=== PATIENT | male | born 1960 | race Caucasian/White ===

== ENCOUNTER → 2016-09-26 | Outpatient (CLI) | payer MEDICARE, OTHER ==
[2016-09-26 09:52] LABS: Carbamazepine (Tegretol) 6.5 ug/mL
== END | disposition home or self-care (01) ==
LOC: LABWHC1 08:34
PROVIDERS: ATTEND Psychiatry & Neurology Neurology
DX: G40.909 Epilepsy, unspecified, not intractable, without status epilepticus (principal)
CPT/HCPCS: 36415; 80156; 80185

== ENCOUNTER 2018-03-27 12:45 | Emergency (ER) | payer MEDICARE, OTHER ==
[2018-03-27] MEDS ORDERED: DIPH,PERTUS(ACELL)TETVAC-LF 0.5 ML VIAL IM ONE (12:46)
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
[2018-03-27 13:18] LABS: Basophils # (A) 0.1 k/uL (0-0.2); Basophils % (A) 1 %; Eosinophils # (A) 0.1 k/uL (0-0.7); Eosinophils % (A) 1 %; HCT 44.6 % (39.0-53.0); HGB 14.6 gm/dL (13.0-17.5); Lymphocytes # (A) 3.5 k/uL (1.0-4.8); Lymphocytes % (A) 22 %; MCH 31.6 pg (25.0-35.0); MCHC 32.9 g/dL (31.0-37.0); MCV 96.3 fL (80.0-100.0); Mean Platelet Volume 6.8; Monocytes # (A) 0.7 k/uL (0-1.0); Monocytes % (A) 4 %; Neutrophils # (A) 11.6 k/uL (1.3-7.7); Neutrophils % (A) 72 %; Platelet Count 365 k/uL (150-450); RBC 4.63 m/uL (4.30-5.90); RDW 13.7 % (11.5-15.5); WBC 16.1 k/uL (3.8-10.6)
[2018-03-27 13:29] LABS: ALT 233 U/L (21-72); AST 439 U/L (17-59); Albumin 4.2 g/dL (3.5-5.0); Alcohol 66 mg/dL; Alkaline Phosphatase 61 U/L (38-126); Anion Gap 25 mmol/L; Blood Urea Nitrogen 11 mg/dL (9-20); Calcium 9.2 mg/dL (8.4-10.2); Carbon Dioxide 15 mmol/L (22-30); Chloride 99 mmol/L (98-107); Glucose 298 mg/dL (74-99); Sodium 139 mmol/L (137-145); Total Bilirubin 0.5 mg/dL (0.2-1.3); Total Protein 6.9 g/dL (6.3-8.2)
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
--- NOTE | 2018-03-27 13:33 | XR ---
EXAMINATION TYPE: XR pelvis AP view DATE OF EXAM: 03/27/2018 CLINICAL HISTORY: pain TECHNIQUE: Single view the pelvis is submitted. Examination is limited by patient body habitus. FINDINGS: No evidence for fracture, dislocation or bony lesion. Joint spaces are well-preserved. S I joints appear symmetric. IMPRESSION: 1. No acute fracture or dislocation seen. ICD 10 NO FRACTURE, INITIAL EVALUATION
[2018-03-27 13:40] LABS: Potassium 3.8 mmol/L (3.5-5.1)
[2018-03-27 13:45] LABS: Prothrombin Time 9.9 sec (9.0-12.0)
[2018-03-27 13:49] LABS: Partial Thromboplastin Time 19.1 sec (22.0-30.0)
[2018-03-27 13:51] LABS: Creatine Kinase 227 U/L (55-170)
[2018-03-27 14:04] LABS: Creatine Kinase MB 3.9 ng/mL (0.0-2.4); Troponin I <0.012 ng/mL (0.000-0.034)
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
[2018-03-27] MEDS ORDERED: SODIUM CHLORIDE 0.9% 500 ML 500 ML IV ONE ×2 (14:08→14:38)
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
[2018-03-27] MEDS ORDERED: ALBUTEROL NEBULIZED 2.5 MG/3 ML INHALATION STA (14:38)
[2018-03-27 14:39] LABS: Appearance,Urine Clear (Clear); Bilirubin,Urine Negative (Negative); Blood,Urine Large (Negative); Color,Urine Yellow; Glucose,Urine (UA) 4+ (Negative); Ketones,Urine Negative (Negative); Leukocyte Esterase,Urine Negative (Negative); Mucus,Urine Rare /hpf; Nitrite,Urine Negative (Negative); Protein,Urine 1+ (Negative); RBC,Urine 159 /hpf (0-5); Specific Gravity,Urine 1.035 (1.001-1.035); Urobilinogen,Urine <2.0 mg/dL (<2.0); WBC,Urine 40 /hpf (0-5)
[2018-03-27 14:44] LABS: Amphetamine Screen,Urine Not Detected (NotDetected); Barbiturate Screen,Urine Detected (NotDetected); Benzodiazepines Screen,Urine Not Detected (NotDetected); Cocaine Screen,Urine Not Detected (NotDetected); Methadone Screen, Urine Not Detected (NotDetected); Opiate Screen,Urine Not Detected (NotDetected); Oxycodone Screen, Urine Not Detected (NotDetected); Phencyclidine Screen,Urine Not Detected (NotDetected); Tricyclic Antidepressant,Urine Not Detected (NotDetected); Urn Cannabinoid Scrn Not Detected (NotDetected)
[2018-03-27] MEDS ORDERED: fentaNYL (PF) 50 MCG/ML 2 ML AMP IVP STA ×3 (14:52→16:30)
[2018-03-27] MEDS ORDERED: SODIUM CHLORIDE 0.9% 1,000 ML IV SCH (15:00)
[2018-03-27] MEDS ORDERED: fentaNYL (PF) 50 MCG/ML 2 ML AMP IV STA (15:58)
[2018-03-27] MEDS ORDERED: NALOXONE 0.4 MG/ML 1 ML VIAL IV PRN (16:27)
[2018-03-27 16:34] VITALS: BP 122/95; PULSE 126; RESP 31
[2018-03-27 16:40] VITALS: TEMP 98
[2018-03-27] MEDS ORDERED: ETOMIDATE 2 MG/ML 10 ML VIAL ONE (16:44)
[2018-03-27] MEDS ORDERED: SUCCINYLCHOLINE CHLORIDE 100 MG/5 ML SYR IV ONE (16:44)
[2018-03-27] MEDS ORDERED: HEPARIN SODIUM,PORCINE 10,000 UNIT/ML 1 ML VIAL ONE (16:44)
[2018-03-27] MEDS ORDERED: ROCURONIUM BROMIDE 10 MG/ML 10 ML VIAL IV ONE (16:44)
[2018-03-27] MEDS ORDERED: fentaNYL (PF) 50 MCG/ML 2 ML AMP ONE (16:44)
[2018-03-27] MEDS ORDERED: SODIUM CHLORIDE 0.9% IRRIG 1,000 ML BTL IRRIGATION ONE (16:44)
[2018-03-27] MEDS ORDERED: LACTATED RINGERS 1,000 ML IV ONE (16:44)
[2018-03-27 17:33] LABS: ABG Base Excess -5.8 mmol/L; ABG HCO3 23 mmol/L (21-25); ABG Oxygen Saturation 98.6 % (94-97); ABG PCO2 59 mmHg (35-45); ABG PO2 147 mmHg (83-108); ABG Potassium Whole Blood 3.7 mmol/L (3.4-4.5); ABG Sodium Whole Blood 142 mmol/L (135-146); ABG TCO2 25 mmol/L (19-24)
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
--- NOTE | 2018-03-29 10:03 | XR ---
EXAMINATION TYPE: XR chest 1V portable DATE OF EXAM: 03/27/2018 HISTORY: Shortness of breath. COMPARISON: 03/27/2018 TECHNIQUE: Single view of the chest is submitted. FINDINGS: Demonstrated are scattered senescent parenchymal change. Patchy density right medial lung base may reflect developing infiltrate. Correlate clinically. Right IJ central venous line with distal tip overlying the SVC. The heart is stable. Hilar and mediastinal structures are within normal limits. Degenerative changes are seen of the dorsal spine. IMPRESSION: 1. Patchy density right medial lung base may reflect developing infiltrate. Correlate clinically.
[2018-03-29 15:58] LABS: Glucose,Whole Blood 240 mg/dL (75-99)
== END 2018-03-27 16:45 | disposition short-term general hospital (02) ==
LOC: EC 12:45 → UNDOADMIN 16:27 → 2SICU 16:27
DX: S36.893A Laceration of other intra-abdominal organs, initial encounter (principal); S36.039A Unspecified laceration of spleen, initial encounter; S36.113A Laceration of liver, unspecified degree, initial encounter; T79.4XXA Traumatic shock, initial encounter; Z23 Encounter for immunization; E11.9 Type 2 diabetes mellitus without complications; I10 Essential (primary) hypertension; E78.5 Hyperlipidemia, unspecified; G40.909 Epilepsy, unspecified, not intractable, without status epilepticus; Z79.82 Long term (current) use of aspirin; Z79.899 Other long term (current) drug therapy; Z87.891 Personal history of nicotine dependence; Z86.718 Personal history of other venous thrombosis and embolism; V47.5XXA Car driver injured in collision with fixed or stationary object in traffic accident, initial encounter; W22.11XA Striking against or struck by driver side automobile airbag, initial encounter; Y92.410 Unspecified street and highway as the place of occurrence of the external cause
CPT/HCPCS: 96376 ×3; 90471 ×2; 96361 ×2; 96374 ×2; 99291 ×2; 99292 ×2; 51702 ×2; 36556 ×2; 47360; 36415; 94640; 93005; 86891; 36430; 86900; 86901; 86902; 80053; 82550; 82553; 82805; 84484; 85025; 85610; 85730; 86850; 86920; 86870; 86880; 81001; 80306; 72170; 71045; 72125; 70450; 71260; 74177; 90715; L0120; P9016; P9035; P9059; G0480; J1644; J3010; J0330; Q9967; 80320

== ENCOUNTER → 2018-07-15 | Outpatient (CLI) | payer MEDICARE, OTHER ==
--- NOTE | 2018-07-15 10:12 | XR ---
EXAMINATION TYPE: XR chest 2V DATE OF EXAM: 07/15/2018 COMPARISON: 03/27/2018 TECHNIQUE: PA and lateral views submitted. HISTORY: Pleural effusion FINDINGS: The lungs are clear and there is no pneumothorax, pleural effusion, or focal pneumonia. Hypertrophic change of the spine. Hyperinflation. Arthropathy of the shoulders. IMPRESSION: 1. No acute process.
== END | disposition home or self-care (01) ==
LOC: LABWHC1 09:05
PROVIDERS: ATTEND Psychiatry & Neurology Neurology
DX: G40.909 Epilepsy, unspecified, not intractable, without status epilepticus (principal); J90 Pleural effusion, not elsewhere classified
CPT/HCPCS: 36415; 71046; 80156

== ENCOUNTER → 2018-07-22 | Outpatient (CLI) | payer MEDICARE, OTHER ==
[2018-07-22 10:31] LABS: HCT 44.3 % (39.0-53.0); HGB 15.2 gm/dL (13.0-17.5); MCH 29.8 pg (25.0-35.0); MCHC 34.3 g/dL (31.0-37.0); MCV 86.9 fL (80.0-100.0); Mean Platelet Volume 6.1; Platelet Count 315 k/uL (150-450); RDW 15.5 % (11.5-15.5); WBC 11.3 k/uL (3.8-10.6)
[2018-07-22 17:44] LABS: Anion Gap 9.3 mmol/L (4.00-12.00); Calcium 9.4 mg/dL (8.7-10.3); Carbon Dioxide 22.7 mmol/L (21.6-31.8); Potassium 5.5 mmol/L (3.5-5.5)
== END | disposition home or self-care (01) ==
LOC: LABWHC1 09:31
PROVIDERS: ATTEND Internal Medicine Interventional Cardiology
DX: I10 Essential (primary) hypertension (principal)
CPT/HCPCS: 36415; 80048; 85027

== ENCOUNTER → 2018-10-16 | Outpatient (CLI) | payer MEDICARE, OTHER | END | disposition home or self-care (01) | LOC: LABWHC1 10:33 | PROVIDERS: ATTEND Psychiatry & Neurology Neurology | DX: G40.909 Epilepsy, unspecified, not intractable, without status epilepticus (principal) | CPT/HCPCS: 36415; 80156 ==

== ENCOUNTER → 2018-12-29 | Outpatient (CLI) | payer MEDICARE, OTHER ==
[2018-12-29 16:26] LABS: African American GFR (CKD) 129.4 (60.0-200.0); Anion Gap 8.1 mmol/L (4.00-12.00); Calcium 9.2 mg/dL (8.7-10.3); Carbon Dioxide 26.9 mmol/L (21.6-31.8); Magnesium 1.9 mg/dL (1.5-2.4); Non-African American GFR(CKD) 111.6 (60.0-200.0)
== END | disposition home or self-care (01) ==
LOC: LABWHC1 09:25
PROVIDERS: ATTEND Nurse Practitioner
DX: I10 Essential (primary) hypertension (principal)
CPT/HCPCS: 36415; 80048; 83735; 83880

== ENCOUNTER → 2020-04-10 | Outpatient (CLI) | payer MEDICARE, OTHER | END | disposition home or self-care (01) | LOC: LABWHC1 09:33 | PROVIDERS: ATTEND Psychiatry & Neurology Neurology | DX: G44.321 Chronic post-traumatic headache, intractable (principal); G40.009 Localization-related (focal) (partial) idiopathic epilepsy and epileptic syndromes with seizures of localized onset, not intractable, without status epilepticus | CPT/HCPCS: 36415; 80156 ==

== ENCOUNTER 2021-01-27 23:22 | Inpatient (IN) | payer MEDICARE, OTHER ==
[2021-01-27] MEDS ORDERED: SODIUM CHLORIDE 0.9% 1,000 ML IV STA ×2 (23:24)
[2021-01-27] MEDS ORDERED: MORPHINE SULFATE 4 MG/ML SYRINGE IVP STA (23:25)
[2021-01-27] MEDS ORDERED: LABETALOL 5 MG/ML VIAL MDV IVP STA (23:25)
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
[2021-01-27 23:41] LABS: Basophils % (A) 0 %; Eosinophils # (A) 0.1 k/uL (0-0.7); Eosinophils % (A) 1 %; HCT 41.1 % (39.0-53.0); HGB 14.5 gm/dL (13.0-17.5); Lymphocytes # (A) 1.5 k/uL (1.0-4.8); Lymphocytes % (A) 12 %; MCH 33.8 pg (25.0-35.0); MCHC 35.4 g/dL (31.0-37.0); MCV 95.7 fL (80.0-100.0); Mean Platelet Volume 6.8; Monocytes # (A) 0.6 k/uL (0-1.0); Monocytes % (A) 5 %; Neutrophils % (A) 81 %; Platelet Count 254 k/uL (150-450); RBC 4.29 m/uL (4.30-5.90); RDW 13.3 % (11.5-15.5); WBC 12.4 k/uL (3.8-10.6)
[2021-01-27 23:59] LABS: ALT 19 U/L (4-49); AST 24 U/L (17-59); African American GFR (CKD) >90 (>60 ml/min/1.73 sqM); Alkaline Phosphatase 68 U/L (38-126); Anion Gap 10 mmol/L; Blood Urea Nitrogen 14 mg/dL (9-20); Calcium 9.5 mg/dL (8.4-10.2); Carbon Dioxide 22 mmol/L (22-30); Chloride 102 mmol/L (98-107); Creatine Kinase 75 U/L (55-170); Glucose 153 mg/dL (74-99); Lipase 30 U/L (23-300); Magnesium 1.5 mg/dL (1.6-2.3); Non-African American GFR(CKD) >90 (>60 ml/min/1.73 sqM); Potassium 3.8 mmol/L (3.5-5.1); Sodium 134 mmol/L (137-145); Total Bilirubin 0.4 mg/dL (0.2-1.3); Total Protein 6.9 g/dL (6.3-8.2)
[2021-01-28 00:02] LABS: INR 0.9 (<1.2); Partial Thromboplastin Time 21.3 sec (22.0-30.0); Prothrombin Time 10.1 sec (9.0-12.0)
--- NOTE | 2021-01-28 00:41 | CT ---
EXAMINATION TYPE: CT abdomen pelvis w con DATE OF EXAM: 01/28/2021 COMPARISON: 03/27/2018 HISTORY: Upper Abd Pain CT DLP: 2819.80 mGycm Automated exposure control for dose reduction was used. CONTRAST: Performed with IV Contrast, patient injected with 100 mL of Isovue 370. Lung bases are clear of infiltrate. There is no pleural effusion. There is no pericardial effusion. H eart size is normal. Liver spleen stomach pancreas gallbladder appear intact. The bile ducts are not dilated. Gallbladder is borderline dilated and measures 4.6 cm in diameter. There is 1.5 cm low-density bilateral adrenal masses consistent with benign disease. Kidneys show satisfactory contrast opacification. There is no hydronephrosis. There is 5 mm calculus in the left kidney. There are small calcifications in the righ t kidney that could be vascular. There is no hydronephrosis. Ureters are not dilated. Delayed images show normal renal excretion. There is no retroperitoneal adenopathy. Bladder distends smoothly. There is no inguinal hernia. There are sigmoid diverticula. There is no diverticulitis. There is large ant erior abdominal wall ventral hernia that contains some incarcerated transverse colon. I see no bowel obstruction. There is some surgical clips in the anterior abdomen. There is apparent previous anterio r abdominal wall surgery. There is no mesenteric edema. There is no ascites or free air. There is no bowel obstruction. Appendi x appears normal. Lumbar vertebra have normal alignment. Posterior elements are intact. There is no compression fractur e. The bony pelvis is intact. Hip joints are intact. IMPRESSION: Incarcerated ventral hernia containing transverse colon. No bowel obstruction. Hernia appears new com pared to old exam. There is clearing of the retroperitoneal fluid and fat stranding compared to old e xam. Low density adrenal masses unchanged. Sigmoid diverticulosis unchanged.
--- NOTE | 2021-01-28 00:52 | CT ---
EXAMINATION TYPE: CT angio chest DATE OF EXAM: 01/28/2021 COMPARISON: None HISTORY: R/O PE, LOWER CHEST PAIN CT DLP: 2819.80 mGycm Automated exposure control for dose reduction was used. CONTRAST: Performed with IV Contrast, patient injected with 100 mL of Isovue 370. There are 3-D post processed images. There is pulmonary emphysema with emphysema and the upper and lower lobes bilaterally. There is no me diastinal adenopathy. Thoracic aorta is intact. There is no aneurysm or dissection. There are no nancy r masses. Heart size is normal. There is no pericardial effusion. There is some spurring in the thoracic spine. There is no compression fracture. Sternum is intact. There is normal contrast opacification of the pulmonary arteries. There is suboptimal density in the smaller branches. There are no filling defects. IMPRESSION: No evidence of pulmonary embolism. Pulmonary emphysema. No acute lung disease. Normal heart.
[2021-01-28] MEDS ORDERED: LABETALOL 5 MG/ML VIAL MDV IVP STA (01:13)
[2021-01-28] MEDS ORDERED: HYDROmorphone 1 MG/ML 1 ML SYRINGE IVP STA (01:13)
[2021-01-28] MEDS ORDERED: NALOXONE 0.4 MG/ML 1 ML VIAL IV PRN (01:14)
[2021-01-28] MEDS ORDERED: NITROGLYCERIN SL TABS 0.4 MG TAB SUBLINGUAL PRN ×2 (01:14→09:25)
[2021-01-28] MEDS ORDERED: ASPIRIN 81 MG PO STA (01:14)
[2021-01-28] MEDS: SODIUM CHLORIDE 0.9% 1,000 ML IV SCH ×3 (01:34→18:10)
[2021-01-28] MEDS: MORPHINE SULFATE 4 MG/ML SYRINGE IV PRN ×3 (02:42→11:11)
[2021-01-28] MEDS: HYDROmorphone 1 MG/ML 1 ML SYRINGE IVP PRN ×2 (04:48→08:19)
[2021-01-28] MEDS ORDERED: NITROGLYCERIN OINT 1 INCH/GM PACKET TOPICAL STA (07:51)
[2021-01-28] MEDS: LOSARTAN 50 MG TAB PO SCH (08:19)
[2021-01-28] MEDS: PANTOPRAZOLE 40 MG/10 ML VIAL IV SCH (08:19)
[2021-01-28] MEDS: INSULIN ASPART (NovoLOG) 100 UNIT/ML VIAL SQ SCH ×4 (08:26→21:15)
[2021-01-28] MEDS ORDERED: amLODIPine 10 MG TAB PO SCH (09:00)
[2021-01-28] MEDS ORDERED: hydroCHLOROthiazide 25 MG TAB PO SCH (09:00)
[2021-01-28] MEDS ORDERED: METOPROLOL TARTRATE 50 MG TAB PO SCH (09:00)
[2021-01-28] MEDS ORDERED: SODIUM CHLORIDE 0.9% 1,000 ML in EMPTY BAG 1 BAG IV ONE (09:25)
[2021-01-28] MEDS ORDERED: ATORVASTATIN 80 MG TAB PO STA (09:25)
[2021-01-28] MEDS ORDERED: ASPIRIN 325 MG TAB PO STA (09:25)
[2021-01-28] MEDS ORDERED: ALPRAZolam 0.25 MG TAB PO PRN (09:25)
[2021-01-28] MEDS: HEPARIN SODIUM,PORCINE/PF 5,000 UNIT/0.5 ML SYRINGE SQ SCH ×2 (09:39→20:21)
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
[2021-01-28] MEDS: amLODIPine 5 MG TAB PO SCH (09:57)
[2021-01-28] MEDS: DEXTROSE 5%-0.45% NACL 1,000 ML IV SCH (09:58)
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
--- NOTE | 2021-01-28 10:03 | CONS ---
CONSULTATION HISTORY OF PRESENT ILLNESS: Mr. Whiting is a 60-year-old male with known history of hypertension, hyperlipidemia, diabetes mellitus and chronic tobacco use, who presented to the emergency room with an episode of chest discomfort that started during the night associated with dyspnea. At the time my evaluation, he is almost pain free. The patient denies any prior symptoms of chest discomfort, although he has underwent cardiac catheterization by Dr. Thierry Prescott in 2016 and at that time had no evidence of significant obstructive disease. According to him, he has not been followed. He is average in his exercise tolerance. He has no exertional chest pain. No dizziness. No palpitation. He has some peripheral edema in the right lower extremities. He denies any PND nor orthopnea. His coronary risk factors are remarkable for the history of hypertension, hyperlipidemia, and diabetes mellitus. MEDICATIONS: Include metoprolol tartrate 100 in the morning and 75 in the evening, losartan 50 mg daily, Jardiance 25 mg daily, hydrochlorothiazide 50 mg daily, Lipitor 40 mg daily, and aspirin once a day. REVIEW OF SYSTEMS: Respiratory system: He has dyspnea on exertion. No recent wheezing or cough. GI system: No recent GI bleeding. No peptic ulcer disease. system: No dysuria or hematuria. Nervous system: He had a prior history of seizure. PHYSICAL EXAMINATION: He is a 60-year-old male, alert, oriented, no apparent distress. Blood pressure running in the 180s to 190s with a heart rate in the 70s. HEAD: Normocephalic. Eyes sclerae anicteric. NECK: Good carotid upstroke. No bruit. No jugular venous distention. LUNGS: Clear to auscultation. HEART: Regular rate and rhythm S1, S2. No S3 with systolic murmur heard at the base. No diastolic murmur. No rub. ABDOMEN: Soft, nontender. Positive bowel sounds. Obese with incisional hernia. EXTREMITIES: 1+ edema on the right side. Intact distal pulses. LAB DATA: Troponin 0.071, 0.070 and 0.056. BUN and creatinine 14 and 0.6. Potassium 3.8, hemoglobin of 14.5. EKG revealed a sinus mechanism, normal axis and intervals. No acute ST-segment changes. CT angiogram of the chest revealed no evidence of pulmonary embolism with evidence of emphysema. IMPRESSION: 1. Symptoms of chest pain with mild troponin elevation consistent with non STEMI. 2. Hypertension, uncontrolled. 3. Diabetes. 4. Hyperlipidemia. 5. Chronic tobacco use. RECOMMENDATIONS: I recommend proceeding with coronary angiography to assess his status and guide his treatment. The rationale behind the procedure, risks and the complications were discussed with the patient who is in full understanding and agreement. Depending on the results of his testing, further recommendation will be made. Thank you for this consult. We will follow with you. KJ / REINALDON: [id number] /
[2021-01-28] MEDS ORDERED: SODIUM CHLORIDE 0.9% 1,000 ML IV ONE (12:30)
[2021-01-28] MEDS ORDERED: VERAPAMIL 2.5 MG/ML 2 ML AMP ONE (12:40)
[2021-01-28] MEDS ORDERED: fentaNYL (PF) 50 MCG/ML 2 ML AMP ONE (12:40)
[2021-01-28] MEDS ORDERED: LIDOCAINE 1% INJ 10MG/ML (20 ML MDV) ONE (12:40)
[2021-01-28] MEDS ORDERED: fentaNYL (PF) 50 MCG/ML 2 ML AMP IV ONE (13:02)
[2021-01-28] MEDS ORDERED: LIDOCAINE 1% INJ 10MG/ML (20 ML MDV) SQ ONE (13:07)
[2021-01-28] MEDS ORDERED: MIDAZOLAM 2 MG/2 ML VIAL IV ONE (13:08)
[2021-01-28] MEDS ORDERED: VERAPAMIL SYRINGE (5 MG/10 ML) INTRAARTER ONE (13:09)
[2021-01-28] MEDS ORDERED: HEPARIN SODIUM 1,000 UN/ML (10ML VL) IV ONE (13:10)
[2021-01-28] MEDS ORDERED: IOPAMIDOL-370 125ML BTL INJ ONE (13:16)
[2021-01-28] MEDS ORDERED: RX INFO: IV CONTRAST WAS GIVEN 1 EACH MISC MISCELLANE PRN (13:25)
[2021-01-28] MEDS ORDERED: SODIUM CHLORIDE 0.9% 1,000 ML IV SCH (13:30)
--- NOTE | 2021-01-28 14:01 | CC ---
CARDIAC CATHETERIZATION REPORT Mr. Whiting is a 60-year-old male with a known history of hypertension, hyperlipidemia, diabetes mellitus and chronic tobacco use who presented to the emergency room with an acute episode of chest discomfort with mild troponin elevation. He had no acute ST- segment changes. Because of his multiple risk factors and his history, recommendation was made regarding cardiac catheterization. The procedure as well as its risks and complications were discussed with the patient, who was in full understanding and agreement. PROCEDURE DESCRIPTION: Patient was brought to the [facility] lab[facility] in a fasting, semi-sedated state after receiving fentanyl and Benadryl and achieving a moderate conscious sedated state. Using Xylocaine anesthesia and Seldinger technique, a 6-Turkish sheath was introduced into the right radial artery. Selective right and left coronary angiography was performed using 5- Turkish 3.5 bend right and left Rodolfo catheters. Multiple views were taken of the arteries, including hemiaxial views. Following that, a 5-Turkish tight pigtail catheter was introduced into the left ventricle. Left ventricular end-diastolic pressure was calculated. Following that, catheter and sheath were removed. Hemostasis was obtained with deployment of a TR band. There was no immediate complication. Patient was returned to his room in stable condition. Of note, the patient received 5000 units of intravenous heparin as well as intra-arterial verapamil. FINDINGS: LEFT MAIN: This is a large-sized vessel bifurcating into left circumflex and left anterior descending artery. Left main coronary artery has no evidence of high-grade stenosis. LEFT ANTERIOR DESCENDING ARTERY: This is a large-sized vessel reaching to the apex with a wrap around the apex segment giving rise to a moderately sized diagonal branch in the mid segment. The left anterior descending artery as well as its branches have no evidence of obstructive coronary artery disease. LEFT CIRCUMFLEX: This is a nondominant vessel giving rise to 3 obtuse marginal branches. The left circumflex has mild plaque of 10% proximally. The rest of the vessel has no high-grade stenosis. RIGHT CORONARY ARTERY: This is a large dominant vessel bifurcating distally into PDA and posterolateral segment and branches. The right coronary artery as well as its branches have no evidence of obstructive coronary artery disease. LEFT VENTRICULOGRAM: Left ventriculogram was not performed. HEMODYNAMICS: There was no gradient across the aortic valve. The left ventricular end- diastolic pressure was 26-30 mmHg. CONCLUSION: 1. Minimal plaque involving the left circumflex. 2. Elevated left ventricular end-diastolic pressure. RECOMMENDATIONS: In view of findings and anatomy, I have recommended continued aggressive risk modification. The patient may have had a spastic disease or a rupture of plaque. The importance of smoking cessation was discussed with the patient, and he is in full understanding and agreement. KJ / MONSE: [id number] /
[2021-01-28] MEDS: METOPROLOL TARTRATE 50 MG TAB PO SCH ×2 (14:34→22:45)
[2021-01-28] MEDS ORDERED: amLODIPine 5 MG TAB PO STA (14:50)
[2021-01-28] MEDS: ONDANSETRON 4 MG/2 ML VIAL IVP PRN (15:15)
[2021-01-28 16:21] LABS: African American GFR (CKD) >90 (>60 ml/min/1.73 sqM); Anion Gap 8 mmol/L; Blood Urea Nitrogen 10 mg/dL (9-20); Carbon Dioxide 24 mmol/L (22-30); Chloride 102 mmol/L (98-107); Non-African American GFR(CKD) >90 (>60 ml/min/1.73 sqM); Sodium 134 mmol/L (137-145)
[2021-01-28] MEDS ORDERED: Magnesium Replacement Protocol 1 EACH MISC MISCELLANE PRN (16:37)
[2021-01-28 16:39] LABS: Glucose,Whole Blood 154 mg/dL (75-99)
[2021-01-28] MEDS: MAGNESIUM SULFATE-D5W PMX 1 GM in DEXTROSE/WATER 1 100ML.BAG IVPB SCH ×2 (16:56→18:05)
[2021-01-28 19:57] LABS: Glucose,Whole Blood 153 mg/dL (75-99)
[2021-01-28] MEDS: carBAMazepine 200 MG TAB PO SCH (20:21)
[2021-01-28] MEDS: ATORVASTATIN 40 MG TAB PO SCH (20:21)
[2021-01-28] MEDS: ISOSORBIDE MONONITRATE ER 60 MG TAB.ER.24H PO SCH (23:42)
[2021-01-29 06:07] LABS: Glucose,Whole Blood 163 mg/dL (75-99)
[2021-01-29] MEDS: DEXTROSE 5%-0.45% NACL 1,000 ML IV SCH ×2 (06:41→11:25)
[2021-01-29] MEDS: INSULIN ASPART (NovoLOG) 100 UNIT/ML VIAL SQ SCH ×3 (06:42→17:49)
[2021-01-29] MEDS ORDERED: HEPARIN SODIUM,PORCINE 10,000 UNIT in SODIUM CHLORIDE 0.9% 1,000 ML IRRIGATION PRN (07:00)
[2021-01-29] MEDS ORDERED: HEPARIN SODIUM,PORCINE 2,500 UNIT in SODIUM CHLORIDE 0.9% 250 ML IRRIGATION PRN (07:00)
[2021-01-29 08:40] LABS: Basophils % (A) 0 %; Eosinophils % (A) 0 %; HCT 37.5 % (39.0-53.0); HGB 13.3 gm/dL (13.0-17.5); Lymphocytes # (A) 0.7 k/uL (1.0-4.8); Lymphocytes % (A) 6 %; MCH 34.3 pg (25.0-35.0); MCHC 35.3 g/dL (31.0-37.0); MCV 97.1 fL (80.0-100.0); Mean Platelet Volume 7.3; Monocytes # (A) 0.7 k/uL (0-1.0); Monocytes % (A) 6 %; Neutrophils # (A) 10.7 k/uL (1.3-7.7); Neutrophils % (A) 88 %; Platelet Count 194 k/uL (150-450); RBC 3.86 m/uL (4.30-5.90); RDW 13.4 % (11.5-15.5); WBC 12.2 k/uL (3.8-10.6)
[2021-01-29] MEDS ORDERED: PANTOPRAZOLE 40 MG TABLET PO SCH (09:00)
[2021-01-29] MEDS ORDERED: ASPIRIN 325 MG TAB PO SCH (09:00)
[2021-01-29 09:06] LABS: ALT 13 U/L (4-49); AST 17 U/L (17-59); African American GFR (CKD) >90 (>60 ml/min/1.73 sqM); Albumin 3.3 g/dL (3.5-5.0); Alkaline Phosphatase 55 U/L (38-126); Anion Gap 8 mmol/L; Blood Urea Nitrogen 7 mg/dL (9-20); Calcium 8.3 mg/dL (8.4-10.2); Carbon Dioxide 23 mmol/L (22-30); Chloride 101 mmol/L (98-107); Glucose 219 mg/dL (74-99); Non-African American GFR(CKD) >90 (>60 ml/min/1.73 sqM); Potassium 4.2 mmol/L (3.5-5.1); Sodium 132 mmol/L (137-145); Total Bilirubin 0.7 mg/dL (0.2-1.3); Total Protein 5.7 g/dL (6.3-8.2)
[2021-01-29] MEDS: NON FORMULARY DRUG (Empagliflozin [Jardiance] 25 MG Tablet) PO SCH (09:11)
[2021-01-29] MEDS: HEPARIN SODIUM,PORCINE/PF 5,000 UNIT/0.5 ML SYRINGE SQ SCH ×2 (09:14→22:05)
[2021-01-29] MEDS: PANTOPRAZOLE 40 MG/10 ML VIAL IV SCH (09:15)
[2021-01-29] MEDS: amLODIPine 5 MG TAB PO SCH (09:15)
[2021-01-29] MEDS: carBAMazepine 200 MG TAB PO SCH ×2 (09:15→22:04)
[2021-01-29] MEDS: METOPROLOL TARTRATE 50 MG TAB PO SCH ×3 (09:15→22:04)
[2021-01-29] MEDS: LOSARTAN 50 MG TAB PO SCH (09:15)
[2021-01-29] MEDS: ASPIRIN 81 MG PO SCH (09:16)
--- NOTE | 2021-01-29 11:20 | P.PN ---
Subjective This is a pleasant 60 years old male with past medical history of diabetes mellitus, deep venous thrombosis, hypertension, hyperlipidemia, seizure d isorder, closed head injury. His patient of Dr. Pang Presents with severe chest pain, 60/10, now feels a little better almost disappeared as 0/10. Central, nonradiating pain. Feels like squeezing No nausea vomiting, no change in urine habits or bowel movements. He denies abdominal pain or tenderness, he has slight umbilical hernia He smokes half pack per day, he is counseled to quit and he agrees but he denies nicotine patch. He drinks 1 beer a day for 3 days a week, no illicit drugs He has history of DVT 3 years ago, currently not on anticoagulation Blood pressure is elevated on admission and currently 186/95 Rest of Vitas looks stable, he is slightly tachypneic at 18-22 and afebrile labs showing mild leukocytosis of 12.4 K, INR 0.9, BMP and liver enzymes are unremarkable with sodium 134, magnesium 1.5, Troponin is elevated at 0.07-0.07 and 0.05. Lipase normal at 30, proBNP is normal at 332 EKG showed normal sinus rhythm at [address]-T changes. QTC is 469 CTA of the chest: No pulmonary embolism, pulmonary emphysema, no aneurysm or dissection. CT of the abdomen and pelvis with contrast: Incarcerated ventral hernia containing transverse colon. No bowel obstruction. Hernia appears new compared to old exam. There is good and retro-peritoneal fluid and fat stranding compared to old exam. Low-density adrenal masses and change. Sigmoid diverticulosis unchanged Emergency room he was started on normal saline, Dilaudid, several doses of labetalol, aspirin 324 mg 01/29/2021 Patient is awake and comfortable today. With no chest pain is still have some d yspnea especially with exertion with some decreased air entry on both sides His blood pressure still mildly elevated 167/75 this morning. 9 WBC slightly up at 12.2 but he has chronic mild leukocytosis. He had a cardiac cath yesterday which failed to show significant stenoses in the coronary arteries. Currently now was continued in the medical treatment He is on multiple blood pressure medication of Vicodin Norvasc 5 mg, low Zartan 100 mg, hydrochlorothiazide 25 mg and metoprolol 50 mg 3 times a day, Imdur 60 mg daily. Also he is on aspirin 81 mg. His creatinine normal and we can stop his IV fluids, D5 half normal saline at 75 mL/h Echocardiogram is pending Objective - Vital Signs Vital signs: Vital Signs Temp 98.7 F 01/29/21 09:12 Pulse 100 01/29/21 09:12 Resp 18 01/29/21 09:12 BP 167/79 01/29/21 09:12 Pulse Ox 95 01/29/21 09:12 Intake & Output 01/28/21 01/29/21 01/29/21 18:59 06:59 18:59 Intake Total 125 Output Total 300 650 Balance -175 -650 Weight 115.439 kg 111.3 kg Intake: IV 125 Oral 0 Output: Urine 300 650 Other: # Voids 0 2 # Bowel Movements 0 - Exam -GENERAL: The patient is alert and oriented x3, not in any acute distress. Obese HEENT: Pupils are round and equally reacting to light. EOMI. No scleral icterus. No conjunctival pallor. Normocephalic, atraumatic. No pharyngeal erythema. No thyromegaly. CARDIOVASCULAR: S1 and S2 present. No murmurs, rubs, or gallops. PULMONARY: Chest is clear to auscultation, no wheezing or crackles. ABDOMEN: Soft, nontender, nondistended, normoactive bowel sounds. No palpable organomegaly. MUSCULOSKELETAL: No joint swelling or deformity. EXTREMITIES: No cyanosis, clubbing, or pedal edema. NEUROLOGICAL: Gross neurological examination did not reveal any focal deficits. SKIN: No rashes. no petechiae. - Labs CBC & Chem 7: 01/29/21 08:08 01/29/21 08:08 Labs: Abnormal Lab Results - Last 24 Hours (Table) 01/28/21 01/28/21 01/28/21 Range/Units 14:52 16:38 19:55 WBC (3.8-10.6) k/uL RBC (4.30-5.90) m/uL Hct (39.0-53.0) % Neutrophils # (1.3-7.7) k/uL Lymphocytes # (1.0-4.8) k/uL Sodium 134 L (137-145) mmol/L BUN (9-20) mg/dL Creatinine 0.40 L (0.66-1.25) mg/dL Glucose (74-99) mg/dL POC Glucose (mg/dL) 154 H 153 H (75-99) mg/dL Calcium (8.4-10.2) mg/dL Total Protein (6.3-8.2) g/dL Albumin (3.5-5.0) g/dL 01/29/21 01/29/21 01/29/21 Range/Units 06:05 08:08 08:08 WBC 12.2 H (3.8-10.6) k/uL RBC 3.86 L (4.30-5.90) m/uL Hct 37.5 L (39.0-53.0) % Neutrophils # 10.7 H (1.3-7.7) k/uL Lymphocytes # 0.7 L (1.0-4.8) k/uL Sodium 132 L (137-145) mmol/L BUN 7 L (9-20) mg/dL Creatinine 0.45 L (0.66-1.25) mg/dL Glucose 219 H (74-99) mg/dL POC Glucose (mg/dL) 163 H (75-99) mg/dL Calcium 8.3 L (8.4-10.2) mg/dL Total Protein 5.7 L (6.3-8.2) g/dL Albumin 3.3 L (3.5-5.0) g/dL Assessment and Plan Assessment: Chest pain, with negative cardiac cath and negative CTA for pulmonary embolism. Resolved Hypertension with urgency on admission exertional dyspnea Abdominal hernia, patient with incarcerated ventral hernia containing transverse colon. Already evaluated by surgeonGo ahead recommend close outpatient follow- up Pulmonary emphysema Hyperlipidemia Diabetes mellitus History of deep venous thrombosis, not on anticoagulation History of seizure disorder History of closed head injury Plan: This is a pleasant 60 years old male who presents with chest pain and hypertension Resume His home medications and monitor his blood pressure carefully Cardiology consult, with negative cardiac cath Pulmonary team consult Surgical team consult. I discussed with the staff and bedside nurse [place], she informed me Dr. Batista already saw the patient and recommended outpatient follow- up Labs and medication were reviewed.. Continue same treatment. Continue with symptomatic treatment. Resume home medication. Monitor lytes and vitals. DVT and GI prophylaxis. Further recommendations depends on the clinical course of the patient DVT prophylaxis: Subcutaneous heparin GI Prophylaxis: Ppi Prognosis is guarded
[2021-01-29 11:40] LABS: Glucose,Whole Blood 200 mg/dL (75-99)
--- NOTE | 2021-01-29 11:44 | P.PN ---
<Francis,Renee - Last Filed: 01/29/21 11:37> Subjective Progress Note Date: 01/29/21 CHIEF COMPLAINT: Incisional hernia HISTORY OF PRESENT ILLNESS: Patient seen and examined. He is denying any abd ominal pain. He denies any chest pain or shortness of breath. He is status post cardiac catheterization yesterday with findings of minimal plaque involving the left circumflex and elevated left ventricular end-diastolic pressure. Cardiology is recommending aggressive risk modification, no further intervention. Patient having normal bowel movements. He is afebrile. WBC 12.2, hemoglobin 13.3, platelet count 194, sodium 132, potassium 4.2, B1 7, creatinine 0.45, magnesium 2.0 PHYSICAL EXAM: VITAL SIGNS: Reviewed. GENERAL: Well-developed in no acute distress. HEENT: No sclera icterus. Extraocular movements grossly intact. Moist buccal mucosa. Head is atraumatic, normocephalic. ABDOMEN: Soft. Obese. Nondistended. Nontender. Partially reducible incisional hernia without any pain. NEUROLOGIC: Alert and oriented. Cranial nerves II through XII grossly intact. ASSESSMENT: 1. Incarcerated incisional hernia PLAN: -Continue diet as ordered -Repeat labs tomorrow -Recommend surgical intervention in the near future -Further recommendations to follow The impression and plan of care has been dictated as directed. I performed a history and examination of this patient, discussed the same with the dictator. I agree with the dictator's note ,documented as a scribe. Any additional findings or plans will be noted. Objective - Vital Signs Vital signs: Vital Signs Temp 98.7 F 01/29/21 09:12 Pulse 100 01/29/21 09:12 Resp 18 01/29/21 09:12 BP 167/79 01/29/21 09:12 Pulse Ox 95 01/29/21 09:12 Intake & Output 01/28/21 01/29/21 01/29/21 18:59 06:59 18:59 Intake Total 125 Output Total 300 650 Balance -175 -650 Weight 115.439 kg 111.3 kg Intake: IV 125 Oral 0 Output: Urine 300 650 Other: # Voids 0 2 # Bowel Movements 0 - Labs CBC & Chem 7: 01/29/21 08:08 01/29/21 08:08 Labs: Abnormal Lab Results - Last 24 Hours (Table) 01/28/21 01/28/21 01/28/21 Range/Units 14:52 16:38 19:55 WBC (3.8-10.6) k/uL RBC (4.30-5.90) m/uL Hct (39.0-53.0) % Neutrophils # (1.3-7.7) k/uL Lymphocytes # (1.0-4.8) k/uL Sodium 134 L (137-145) mmol/L BUN (9-20) mg/dL Creatinine 0.40 L (0.66-1.25) mg/dL Glucose (74-99) mg/dL POC Glucose (mg/dL) 154 H 153 H (75-99) mg/dL Calcium (8.4-10.2) mg/dL Total Protein (6.3-8.2) g/dL Albumin (3.5-5.0) g/dL 01/29/21 01/29/21 01/29/21 Range/Units 06:05 08:08 08:08 WBC 12.2 H (3.8-10.6) k/uL RBC 3.86 L (4.30-5.90) m/uL Hct 37.5 L (39.0-53.0) % Neutrophils # 10.7 H (1.3-7.7) k/uL Lymphocytes # 0.7 L (1.0-4.8) k/uL Sodium 132 L (137-145) mmol/L BUN 7 L (9-20) mg/dL Creatinine 0.45 L (0.66-1.25) mg/dL Glucose 219 H (74-99) mg/dL POC Glucose (mg/dL) 163 H (75-99) mg/dL Calcium 8.3 L (8.4-10.2) mg/dL Total Protein 5.7 L (6.3-8.2) g/dL Albumin 3.3 L (3.5-5.0) g/dL <Jarett Batista - Last Filed: 01/29/21 13:08> Objective - Vital Signs Vital signs: Vital Signs Temp 98.7 F 01/29/21 09:12 Pulse 93 01/29/21 12:42 Resp 18 01/29/21 12:42 BP 151/87 01/29/21 12:42 Pulse Ox 95 01/29/21 12:42 Intake & Output 01/28/21 01/29/21 01/29/21 18:59 06:59 18:59 Intake Total 125 Output Total 300 650 Balance -175 -650 Weight 115.439 kg 111.3 kg Intake: IV 125 Oral 0 Output: Urine 300 650 Other: # Voids 0 2 # Bowel Movements 0 - Labs CBC & Chem 7: 01/29/21 08:08 01/29/21 08:08 Labs: Abnormal Lab Results - Last 24 Hours (Table) 01/28/21 01/28/21 01/28/21 Range/Units 14:52 16:38 19:55 WBC (3.8-10.6) k/uL RBC (4.30-5.90) m/uL Hct (39.0-53.0) % Neutrophils # (1.3-7.7) k/uL Lymphocytes # (1.0-4.8) k/uL Sodium 134 L (137-145) mmol/L BUN (9-20) mg/dL Creatinine 0.40 L (0.66-1.25) mg/dL Glucose (74-99) mg/dL POC Glucose (mg/dL) 154 H 153 H (75-99) mg/dL Calcium (8.4-10.2) mg/dL Total Protein (6.3-8.2) g/dL Albumin (3.5-5.0) g/dL 01/29/21 01/29/21 01/29/21 Range/Units 06:05 08:08 08:08 WBC 12.2 H (3.8-10.6) k/uL RBC 3.86 L (4.30-5.90) m/uL Hct 37.5 L (39.0-53.0) % Neutrophils # 10.7 H (1.3-7.7) k/uL Lymphocytes # 0.7 L (1.0-4.8) k/uL Sodium 132 L (137-145) mmol/L BUN 7 L (9-20) mg/dL Creatinine 0.45 L (0.66-1.25) mg/dL Glucose 219 H (74-99) mg/dL POC Glucose (mg/dL) 163 H (75-99) mg/dL Calcium 8.3 L (8.4-10.2) mg/dL Total Protein 5.7 L (6.3-8.2) g/dL Albumin 3.3 L (3.5-5.0) g/dL 01/29/21 Range/Units 11:38 WBC (3.8-10.6) k/uL RBC (4.30-5.90) m/uL Hct (39.0-53.0) % Neutrophils # (1.3-7.7) k/uL Lymphocytes # (1.0-4.8) k/uL Sodium (137-145) mmol/L BUN (9-20) mg/dL Creatinine (0.66-1.25) mg/dL Glucose (74-99) mg/dL POC Glucose (mg/dL) 200 H (75-99) mg/dL Calcium (8.4-10.2) mg/dL Total Protein (6.3-8.2) g/dL Albumin (3.5-5.0) g/dL Assessment and Plan (1) Incarcerated incisional hernia Current Visit: Yes Status: Acute Code(s): K43.0 - INCISIONAL HERNIA WITH OBSTRUCTION, WITHOUT GANGRENE SNOMED Code(s): 031274624
[2021-01-29] MEDS ORDERED: ALBUTEROL HFA INHALER INHALATION PRN (12:19)
--- NOTE | 2021-01-29 13:06 | P.PN ---
Subjective Progress Note Date: 01/29/21 Principal diagnosis: Incarcerated incisional hernia patient doing well today. Denies pain. Says his chest pain is resolved. No further shortness of breath. States he is going home tomorrow. No abdominal pain. Tolerating diet. Objective - Vital Signs Vital signs: Vital Signs Temp 98.7 F 01/29/21 09:12 Pulse 93 01/29/21 12:42 Resp 18 01/29/21 12:42 BP 151/87 01/29/21 12:42 Pulse Ox 95 01/29/21 12:42 Intake & Output 01/28/21 01/29/21 01/29/21 18:59 06:59 18:59 Intake Total 125 Output Total 300 650 Balance -175 -650 Weight 115.439 kg 111.3 kg Intake: IV 125 Oral 0 Output: Urine 300 650 Other: # Voids 0 2 # Bowel Movements 0 - Exam Abdomen: Soft, nondistended, partially reducible incisional hernia without tenderness - Labs CBC & Chem 7: 01/29/21 08:08 01/29/21 08:08 Labs: Abnormal Lab Results - Last 24 Hours (Table) 01/28/21 01/28/21 01/28/21 Range/Units 14:52 16:38 19:55 WBC (3.8-10.6) k/uL RBC (4.30-5.90) m/uL Hct (39.0-53.0) % Neutrophils # (1.3-7.7) k/uL Lymphocytes # (1.0-4.8) k/uL Sodium 134 L (137-145) mmol/L BUN (9-20) mg/dL Creatinine 0.40 L (0.66-1.25) mg/dL Glucose (74-99) mg/dL POC Glucose (mg/dL) 154 H 153 H (75-99) mg/dL Calcium (8.4-10.2) mg/dL Total Protein (6.3-8.2) g/dL Albumin (3.5-5.0) g/dL 01/29/21 01/29/21 01/29/21 Range/Units 06:05 08:08 08:08 WBC 12.2 H (3.8-10.6) k/uL RBC 3.86 L (4.30-5.90) m/uL Hct 37.5 L (39.0-53.0) % Neutrophils # 10.7 H (1.3-7.7) k/uL Lymphocytes # 0.7 L (1.0-4.8) k/uL Sodium 132 L (137-145) mmol/L BUN 7 L (9-20) mg/dL Creatinine 0.45 L (0.66-1.25) mg/dL Glucose 219 H (74-99) mg/dL POC Glucose (mg/dL) 163 H (75-99) mg/dL Calcium 8.3 L (8.4-10.2) mg/dL Total Protein 5.7 L (6.3-8.2) g/dL Albumin 3.3 L (3.5-5.0) g/dL 01/29/21 Range/Units 11:38 WBC (3.8-10.6) k/uL RBC (4.30-5.90) m/uL Hct (39.0-53.0) % Neutrophils # (1.3-7.7) k/uL Lymphocytes # (1.0-4.8) k/uL Sodium (137-145) mmol/L BUN (9-20) mg/dL Creatinine (0.66-1.25) mg/dL Glucose (74-99) mg/dL POC Glucose (mg/dL) 200 H (75-99) mg/dL Calcium (8.4-10.2) mg/dL Total Protein (6.3-8.2) g/dL Albumin (3.5-5.0) g/dL Assessment and Plan (1) Incarcerated incisional hernia Narrative/Plan: 60-year-old male with incisional hernia 2 one of which is incarcerated. Asymptomatic currently. Okay with discharge with plans for outpatient follow-up to discuss to further repair. Continue tobacco cessation. Current Visit: Yes Status: Acute Code(s): K43.0 - INCISIONAL HERNIA WITH OBSTRUCTION, WITHOUT GANGRENE SNOMED Code(s): 901842995
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
--- NOTE | 2021-01-29 16:06 | P.PN ---
Subjective This is a 60-year-old male with a past medical history of hypertension, hyperlipidemia, type 2 diabetes, chronic nicotine dependence sleep apnea, sei zure disorder. He follows with Dr. Prescott in the office, last seen in 2019. He presented emergency department with chest pain. He also had mild elevated troponin consistent with NSTEMI. He underwent cardiac catheterization with Dr. Cuadra 01/28/21 which revealed nonobstructive coronary artery disease involving the left circumflex. Elevated left ventricular end-diastolic pressure 26- 30mmHg. Echocardiogram in 2019 in the office revealed an EF of 55%, mild concentric hypertrophy, mild mitral regurgitation, mild tricuspid regurgitation Patient seen and examined at bedside, no acute distress. He denies any chest pain. He continues to have some mild shortness of breath. Blood pressure 151/ 87, heart rate 93, afebrile, maintaining oxygen saturations on room air. His echocardiogram report is pending. He's currently maintained on amlodipine 5 mg daily, aspirin 81 mg daily, atorvastatin 40 mg daily, hydrochlorothiazide 50 mg daily, Imdur 60 mg nightly, losartan 100 mg daily, metoprolol tartrate 50 mg 3 times a day. GENERAL: Well-appearing, well-nourished and in no acute distress. NECK: Supple without JVD LUNGS: Breath sounds clear to auscultation bilaterally. Respiration equal and unlabored. No wheezes, rales or rhonchi. HEART: Regular rate and rhythm Systolic murmur at base, No rubs or gallops. S1 and S2 heard. EXTREMITIES: Normal range of motion, no edema. No clubbing or cyanosis. Peripheral pulses intact. SKIN: Right radial cath site clean dry intact no hematoma ASSESSMENT Non-obstructive coronary artery disease Chest pain Shortness of breath History of hypertension Hyperlipidemia Type 2 diabetes Chronic nicotine dependence Sleep apnea History of seizure disorder. PLAN Continue current medical therapy amlodipine 5 mg daily, aspirin 81 mg daily, atorvastatin 40 mg daily, hydrochlorothiazide 50 mg daily, Imdur 60 mg nightly, losartan 100 mg daily, metoprolol tartrate 50 mg TID Will await read of echocardiogram, if echocardiogram with no acute findings, no additional workup from cardiology perspective and patient to follow up outpatient with Dr. Prescott Nurse Practitioner note has been reviewed, I agree with a documented findings and plan of care. Patient was seen and examined. Objective - Vital Signs Vital signs: Vital Signs Temp 98.7 F 01/29/21 09:12 Pulse 93 01/29/21 12:42 Resp 18 01/29/21 14:00 BP 151/87 01/29/21 12:42 Pulse Ox 95 01/29/21 12:42 Intake & Output 01/28/21 01/29/21 01/29/21 18:59 06:59 18:59 Intake Total 125 Output Total 300 650 Balance -175 -650 Weight 115.439 kg 111.3 kg Intake: IV 125 Oral 0 Output: Urine 300 650 Other: # Voids 0 2 # Bowel Movements 0 - Labs CBC & Chem 7: 01/29/21 08:08 01/29/21 08:08 Labs: Abnormal Lab Results - Last 24 Hours (Table) 01/28/21 01/28/21 01/28/21 Range/Units 14:52 16:38 19:55 WBC (3.8-10.6) k/uL RBC (4.30-5.90) m/uL Hct (39.0-53.0) % Neutrophils # (1.3-7.7) k/uL Lymphocytes # (1.0-4.8) k/uL Sodium 134 L (137-145) mmol/L BUN (9-20) mg/dL Creatinine 0.40 L (0.66-1.25) mg/dL Glucose (74-99) mg/dL POC Glucose (mg/dL) 154 H 153 H (75-99) mg/dL Calcium (8.4-10.2) mg/dL Total Protein (6.3-8.2) g/dL Albumin (3.5-5.0) g/dL 01/29/21 01/29/21 01/29/21 Range/Units 06:05 08:08 08:08 WBC 12.2 H (3.8-10.6) k/uL RBC 3.86 L (4.30-5.90) m/uL Hct 37.5 L (39.0-53.0) % Neutrophils # 10.7 H (1.3-7.7) k/uL Lymphocytes # 0.7 L (1.0-4.8) k/uL Sodium 132 L (137-145) mmol/L BUN 7 L (9-20) mg/dL Creatinine 0.45 L (0.66-1.25) mg/dL Glucose 219 H (74-99) mg/dL POC Glucose (mg/dL) 163 H (75-99) mg/dL Calcium 8.3 L (8.4-10.2) mg/dL Total Protein 5.7 L (6.3-8.2) g/dL Albumin 3.3 L (3.5-5.0) g/dL 01/29/21 Range/Units 11:38 WBC (3.8-10.6) k/uL RBC (4.30-5.90) m/uL Hct (39.0-53.0) % Neutrophils # (1.3-7.7) k/uL Lymphocytes # (1.0-4.8) k/uL Sodium (137-145) mmol/L BUN (9-20) mg/dL Creatinine (0.66-1.25) mg/dL Glucose (74-99) mg/dL POC Glucose (mg/dL) 200 H (75-99) mg/dL Calcium (8.4-10.2) mg/dL Total Protein (6.3-8.2) g/dL Albumin (3.5-5.0) g/dL
[2021-01-29 16:07] LABS: Chol/HDL Ratio 3.24; Cholesterol 133 mg/dL (0-200); LDL Cholesterol,Calculated 58.6 mg/dL (0.0-131.0)
[2021-01-29 16:28] LABS: Glucose,Whole Blood 177 mg/dL (75-99)
[2021-01-29] MEDS: SYMBICORT 160-4.5 MCG INHALER INHALATION SCH (19:49)
[2021-01-29 19:56] LABS: Glucose,Whole Blood 142 mg/dL (75-99)
[2021-01-29] MEDS: ISOSORBIDE MONONITRATE ER 60 MG TAB.ER.24H PO SCH (22:04)
[2021-01-29] MEDS: ATORVASTATIN 40 MG TAB PO SCH (22:05)
[2021-01-30] MEDS: INSULIN ASPART (NovoLOG) 100 UNIT/ML VIAL SQ SCH ×4 (00:30→18:07)
[2021-01-30 06:25] LABS: Glucose,Whole Blood 173 mg/dL (75-99)
[2021-01-30] MEDS: HEPARIN SODIUM,PORCINE/PF 5,000 UNIT/0.5 ML SYRINGE SQ SCH ×2 (08:32→20:34)
[2021-01-30] MEDS: amLODIPine 5 MG TAB PO SCH (08:32)
[2021-01-30] MEDS: LOSARTAN 50 MG TAB PO SCH (08:33)
[2021-01-30] MEDS: PANTOPRAZOLE 40 MG TABLET PO SCH (08:33)
[2021-01-30] MEDS: carBAMazepine 200 MG TAB PO SCH ×2 (08:33→20:33)
[2021-01-30] MEDS: METOPROLOL TARTRATE 50 MG TAB PO SCH ×3 (08:33→20:33)
[2021-01-30] MEDS: NON FORMULARY DRUG (Empagliflozin [Jardiance] 25 MG Tablet) PO SCH (08:34)
[2021-01-30] MEDS: ASPIRIN 81 MG PO SCH (08:35)
[2021-01-30] MEDS: SYMBICORT 160-4.5 MCG INHALER INHALATION SCH ×2 (09:23→20:38)
--- NOTE | 2021-01-30 10:55 | P.PN ---
Subjective This is a pleasant 60 years old male with past medical history of diabetes mellitus, deep venous thrombosis, hypertension, hyperlipidemia, seizure d isorder, closed head injury. His patient of Dr. Pang Presents with severe chest pain, 60/10, now feels a little better almost disappeared as 0/10. Central, nonradiating pain. Feels like squeezing No nausea vomiting, no change in urine habits or bowel movements. He denies abdominal pain or tenderness, he has slight umbilical hernia He smokes half pack per day, he is counseled to quit and he agrees but he denies nicotine patch. He drinks 1 beer a day for 3 days a week, no illicit drugs He has history of DVT 3 years ago, currently not on anticoagulation Blood pressure is elevated on admission and currently 186/95 Rest of Vitas looks stable, he is slightly tachypneic at 18-22 and afebrile labs showing mild leukocytosis of 12.4 K, INR 0.9, BMP and liver enzymes are unremarkable with sodium 134, magnesium 1.5, Troponin is elevated at 0.07-0.07 and 0.05. Lipase normal at 30, proBNP is normal at 332 EKG showed normal sinus rhythm at [address]-T changes. QTC is 469 CTA of the chest: No pulmonary embolism, pulmonary emphysema, no aneurysm or dissection. CT of the abdomen and pelvis with contrast: Incarcerated ventral hernia containing transverse colon. No bowel obstruction. Hernia appears new compared to old exam. There is good and retro-peritoneal fluid and fat stranding compared to old exam. Low-density adrenal masses and change. Sigmoid diverticulosis unchanged Emergency room he was started on normal saline, Dilaudid, several doses of labetalol, aspirin 324 mg 01/29/2021 Patient is awake and comfortable today. With no chest pain is still have some d yspnea especially with exertion with some decreased air entry on both sides His blood pressure still mildly elevated 167/75 this morning. 9 WBC slightly up at 12.2 but he has chronic mild leukocytosis. He had a cardiac cath yesterday which failed to show significant stenoses in the coronary arteries. Currently now was continued in the medical treatment He is on multiple blood pressure medication of Vicodin Norvasc 5 mg, low Zartan 100 mg, hydrochlorothiazide 25 mg and metoprolol 50 mg 3 times a day, Imdur 60 mg daily. Also he is on aspirin 81 mg. His creatinine normal and we can stop his IV fluids, D5 half normal saline at 75 mL/h Echocardiogram is pending 01/30/2021 Patient breathing was doing okay, his blood pressure is better controlled on the correct regiment suggested by operations lead on Norvasc 5 mg, losartan 100 mg, hydrochlorothiazide 50 mg and metoprolol 50 mg 3 times a day as well as Imdur 60 mg however today he is developing low-grade temperature and mild leukocytosis.He has chronic leukocytosis though . We'll do some workup with chest x-ray and urinalysis. Urinary input is appreciated. Cardiogram still pending which was done this morning and result isn't back yet. In the meantime he denies any chest pain with cardiac cath with no significant illness. Objective - Vital Signs Vital signs: Vital Signs Temp 99.7 F H 01/30/21 08:00 Pulse 103 H 01/30/21 08:00 Resp 16 01/30/21 08:00 BP 167/78 01/30/21 08:00 Pulse Ox 92 L 01/30/21 08:00 Intake & Output 01/29/21 01/30/21 01/30/21 18:59 06:59 18:59 Intake Total 0 Balance 0 Intake: Oral 0 Other: Voiding Method Toilet Urinal # Voids 2 1 - Exam -GENERAL: The patient is alert and oriented x3, not in any acute distress. Obese HEENT: Pupils are round and equally reacting to light. EOMI. No scleral icterus. No conjunctival pallor. Normocephalic, atraumatic. No pharyngeal erythema. No thyromegaly. CARDIOVASCULAR: S1 and S2 present. No murmurs, rubs, or gallops. PULMONARY: Chest is clear to auscultation, no wheezing or crackles. ABDOMEN: Soft, nontender, nondistended, normoactive bowel sounds. No palpable organomegaly. MUSCULOSKELETAL: No joint swelling or deformity. EXTREMITIES: No cyanosis, clubbing, or pedal edema. NEUROLOGICAL: Gross neurological examination did not reveal any focal deficits. SKIN: No rashes. no petechiae. - Labs CBC & Chem 7: 01/29/21 08:08 01/29/21 08:08 Labs: Abnormal Lab Results - Last 24 Hours (Table) 01/29/21 01/29/21 01/29/21 Range/Units 08:08 11:38 16:24 POC Glucose (mg/dL) 200 H 177 H (75-99) mg/dL Triglycerides 167.0 H (0.0-149.0) mg/dL 01/29/21 01/30/21 Range/Units 19:55 06:24 POC Glucose (mg/dL) 142 H 173 H (75-99) mg/dL Triglycerides (0.0-149.0) mg/dL Assessment and Plan Assessment: Low-grade fever, and no significance. Check chest x-ray and urine analysis Chest pain, with negative cardiac cath and negative CTA for pulmonary embolism. Resolved Hypertension with urgency on admission exertional dyspnea Abdominal hernia, patient with incarcerated ventral hernia containing transverse colon. Already evaluated by surgeonGo ahead recommend close outpatient follow- up Pulmonary emphysema Hyperlipidemia Diabetes mellitus History of deep venous thrombosis, not on anticoagulation History of seizure disorder History of closed head injury Plan: This is a pleasant 60 years old male who presents with chest pain and hypertension Check chest x-ray, urinalysis Resume His home medications and monitor his blood pressure carefully Cardiology consult, with negative cardiac cath Pulmonary team consult is appreciated and the recommend outpatient follow-up Surgical team consult. I discussed with the staff and bedside nurse [place], she informed me Dr. Batista already saw the patient and recommended outpatient follow- up Labs and medication were reviewed.. Continue same treatment. Continue with symptomatic treatment. Resume home medication. Monitor lytes and vitals. DVT and GI prophylaxis. Further recommendations depends on the clinical course of the patient DVT prophylaxis: Subcutaneous heparin GI Prophylaxis: Ppi Prognosis is guarded
--- NOTE | 2021-01-30 11:02 | ECHOF ---
Referral Reason:nm MEASUREMENTS -------- HEIGHT: 175.3 cm WEIGHT: 111.1 kg BP: 123/69 RVIDd: 4.1 cm (< 3.3) IVSd: 1.5 cm (0.6 - 1.1) LVIDd: 4.2 cm (3.9 - 5.3) LVPWd: 1.6 cm (0.6 - 1.1) IVSs: 1.8 cm LVIDs: 2.9 cm LVPWs: 2.2 cm LAESV Index (A-L): 26.86 ml/m Ao Diam: 3.2 cm (2.0 - 3.7) AV Cusp: 2.3 cm (1.5 - 2.6) LA Diam: 4.7 cm (2.7 - 3.8) MV EXCURSION: 21.405 mm (> 18.000) MV EF SLOPE: 55 mm/s (70 - 150) EPSS: 0.3 cm MV E Raf: 1.14 m/s MV DecT: 175 ms MV A Raf: 1.12 m/s MV E/A Ratio: 1.02 RAP: 5.00 mmHg RVSP: 32.92 mmHg FINDINGS -------- Sinus rhythm. This was a technically adequate study. The left ventricular size is normal. There is moderate concentric left ventricular hypertrophy. O verall left ventricular systolic function is low-normal with, an EF between 50 - 55 %. The right ventricle is moderate to severely enlarged. Normal LA size by volume 22+/-6 ml/m2. The right atrial size is normal. Interatrial and interventricular septum intact. The aortic valve was not well visualized. There is no evidence of aortic regurgitation. There is no evidence of aortic stenosis. There is trace mitral regurgitation. Mild tricuspid regurgitation present. There is no evidence of pulmonary hypertension. The right v entricular systolic pressure, as measured by Doppler, is 32.92mmHg. There is no pulmonic regurgitation present. The aortic root size is normal. IVC Not well visulized. There is no pericardial effusion. CONCLUSIONS -------- 1. The left ventricular size is normal. 2. There is moderate concentric left ventricular hypertrophy. 3. Overall left ventricular systolic function is low-normal with, an EF between 50 - 55 %. 4. The right ventricle is moderate to severely enlarged. 5. There is trace mitral regurgitation. 6. Mild tricuspid regurgitation present. RETIREMENT PLAN COUNSELOR: Chari Gore RDCS
[2021-01-30 11:53] LABS: Glucose,Whole Blood 187 mg/dL (75-99)
--- NOTE | 2021-01-30 11:59 | P.PN ---
<Keysha Dickerson - Last Filed: 01/30/21 11:52> Subjective Progress Note Date: 01/30/21 CHIEF COMPLAINT: Incarcerated incisional hernia HISTORY OF PRESENT ILLNESS: Patient denies any abdominal pain. Denies any nausea or vomiting. He is tolerating regular diet. He is having bowel movements. Low-grade temp 99.7 heart rate 103. Medicine service has ordered chest x-ray and UA. PHYSICAL EXAM: VITAL SIGNS: Reviewed. GENERAL: Well-developed in no acute distress. HEENT: No sclera icterus. Extraocular movements grossly intact. Moist buccal mucosa. Head is atraumatic, normocephalic. ABDOMEN: Soft. Nondistended. Palpable incisional hernia without tenderness NEUROLOGIC: Alert and oriented. Cranial nerves II through XII grossly intact. ASSESSMENT: 1. Incarcerated incisional hernia PLAN: -Okay to discharge from surgical standpoint -outpatient follow-up to discuss further repair -Continue tobacco cessation Physician Sales Program Manager note has been reviewed by physician. Signing provider agrees with the documented findings, assessment, and plan of care. Objective - Vital Signs Vital signs: Vital Signs Temp 99.7 F H 01/30/21 08:00 Pulse 103 H 01/30/21 08:00 Resp 16 01/30/21 08:00 BP 167/78 01/30/21 08:00 Pulse Ox 92 L 01/30/21 08:00 Intake & Output 01/29/21 01/30/21 01/30/21 18:59 06:59 18:59 Intake Total 0 Balance 0 Intake: Oral 0 Other: Voiding Method Toilet Toilet Urinal Urinal # Voids 2 1 4 - Labs CBC & Chem 7: 01/29/21 08:08 01/29/21 08:08 Labs: Abnormal Lab Results - Last 24 Hours (Table) 01/29/21 01/29/21 01/29/21 Range/Units 08:08 16:24 19:55 POC Glucose (mg/dL) 177 H 142 H (75-99) mg/dL Triglycerides 167.0 H (0.0-149.0) mg/dL 01/30/21 Range/Units 06:24 POC Glucose (mg/dL) 173 H (75-99) mg/dL Triglycerides (0.0-149.0) mg/dL <Jarett Batista - Last Filed: 01/30/21 13:08> Subjective As above. Patient denies abdominal pain. Possible discharge today. Follow-up as outpatient. We'll sign off. Call if needed. Objective - Vital Signs Vital signs: Vital Signs Temp 99.7 F H 01/30/21 08:00 Pulse 102 H 01/30/21 12:26 Resp 16 01/30/21 12:26 BP 155/87 01/30/21 12:26 Pulse Ox 95 01/30/21 12:26 Intake & Output 01/29/21 01/30/21 01/30/21 18:59 06:59 18:59 Intake Total 0 Balance 0 Intake: Oral 0 Other: Voiding Method Toilet Toilet Urinal Urinal # Voids 2 1 4 - Labs CBC & Chem 7: 01/29/21 08:08 01/29/21 08:08 Labs: Abnormal Lab Results - Last 24 Hours (Table) 01/29/21 01/29/21 01/29/21 Range/Units 08:08 16:24 19:55 POC Glucose (mg/dL) 177 H 142 H (75-99) mg/dL Triglycerides 167.0 H (0.0-149.0) mg/dL Urine Glucose (UA) (Negative) 01/30/21 01/30/21 01/30/21 Range/Units 06:24 11:22 11:51 POC Glucose (mg/dL) 173 H 187 H (75-99) mg/dL Triglycerides (0.0-149.0) mg/dL Urine Glucose (UA) 3+ H (Negative) Assessment and Plan (1) Incarcerated incisional hernia Current Visit: Yes Status: Acute Code(s): K43.0 - INCISIONAL HERNIA WITH OBSTRUCTION, WITHOUT GANGRENE SNOMED Code(s): 974153223
[2021-01-30 12:24] LABS: Appearance,Urine Clear (Clear); Bilirubin,Urine Negative (Negative); Blood,Urine Negative (Negative); Color,Urine Yellow; Glucose,Urine (UA) 3+ (Negative); Ketones,Urine Negative (Negative); Leukocyte Esterase,Urine Negative (Negative); Nitrite,Urine Negative (Negative); PH, Urine 6.5 (5.0-8.0); Protein,Urine Negative (Negative); Specific Gravity,Urine 1.014 (1.001-1.035); Urobilinogen,Urine <2.0 mg/dL (<2.0)
--- NOTE | 2021-01-30 12:34 | P.PN ---
Subjective This is a 60-year-old male with a past medical history of hypertension, hyperlipidemia, type 2 diabetes, chronic nicotine dependence sleep apnea, sei zure disorder. He follows with Dr. Prescott in the office, last seen in 2019. He presented emergency department with chest pain. He also had mild elevated troponin consistent with NSTEMI. He underwent cardiac catheterization with Dr. Cuadra 01/28/21 which revealed nonobstructive coronary artery disease involving the left circumflex. Elevated left ventricular end-diastolic pressure 26- 30mmHg. Echocardiogram in 2019 in the office revealed an EF of 55%, mild concentric hypertrophy, mild mitral regurgitation, mild tricuspid regurgitation Patient seen and examined at bedside, no acute distress. He denies any chest pain, shortness of breath, lightheadedness, dizziness, palpitations. He states he slept well last night. He is lying flat in bed, breathing comfortably. Blood pressure 151/87, heart rate 93, afebrile, maintaining oxygen saturations on room air. His echocardiogram report is pending. He's currently maintained on amlodipine 5 mg daily, aspirin 81 mg daily, atorvastatin 40 mg daily, hydrochlorothiazide 50 mg daily, Imdur 60 mg nightly, losartan 100 mg daily, metoprolol tartrate 50 mg 3 times a day. Echocardiogram revealed EF of 5055 percent, RV is moderately to severely en larged, trace mitral regurgitation, mild tricuspid regurgitation GENERAL: Well-appearing, well-nourished and in no acute distress. NECK: Supple without JVD LUNGS: Breath sounds clear to auscultation bilaterally. Respiration equal and unlabored. No wheezes, rales or rhonchi. HEART: Regular rate and rhythm Systolic murmur at base, No rubs or gallops. S1 and S2 heard. EXTREMITIES: Normal range of motion, no edema. No clubbing or cyanosis. Peripheral pulses intact. SKIN: Right radial cath site clean dry intact no hematoma ASSESSMENT Non-obstructive coronary artery disease Chest pain Shortness of breath History of hypertension Hyperlipidemia Type 2 diabetes Chronic nicotine dependence Sleep apnea History of seizure disorder. PLAN Continue current medical therapy amlodipine 5 mg daily, aspirin 81 mg daily, atorvastatin 40 mg daily, hydrochlorothiazide 50 mg daily, Imdur 60 mg nightly, losartan 100 mg daily, metoprolol tartrate 50 mg TID Echocardiogram reviewed, no additional workup and patient is stable for discharge from cardiology perspective Patient to follow up outpatient with Dr. Prescott within 1 week. Nurse Practitioner note has been reviewed, I agree with a documented findings and plan of care. Patient was seen and examined. Objective - Vital Signs Vital signs: Vital Signs Temp 99.7 F H 01/30/21 08:00 Pulse 103 H 01/30/21 08:00 Resp 16 01/30/21 08:00 BP 167/78 01/30/21 08:00 Pulse Ox 92 L 01/30/21 08:00 Intake & Output 01/29/21 01/30/21 01/30/21 18:59 06:59 18:59 Other: Voiding Method Toilet Urinal # Voids 2 1 - Labs CBC & Chem 7: 01/29/21 08:08 01/29/21 08:08 Labs: Abnormal Lab Results - Last 24 Hours (Table) 01/29/21 01/29/21 01/29/21 Range/Units 08:08 11:38 16:24 Sodium 132 L (137-145) mmol/L BUN 7 L (9-20) mg/dL Creatinine 0.45 L (0.66-1.25) mg/dL Glucose 219 H (74-99) mg/dL POC Glucose (mg/dL) 200 H 177 H (75-99) mg/dL Calcium 8.3 L (8.4-10.2) mg/dL Total Protein 5.7 L (6.3-8.2) g/dL Albumin 3.3 L (3.5-5.0) g/dL Triglycerides 167.0 H (0.0-149.0) mg/dL 01/29/21 01/30/21 Range/Units 19:55 06:24 Sodium (137-145) mmol/L BUN (9-20) mg/dL Creatinine (0.66-1.25) mg/dL Glucose (74-99) mg/dL POC Glucose (mg/dL) 142 H 173 H (75-99) mg/dL Calcium (8.4-10.2) mg/dL Total Protein (6.3-8.2) g/dL Albumin (3.5-5.0) g/dL Triglycerides (0.0-149.0) mg/dL
--- NOTE | 2021-01-30 15:21 | XR ---
EXAMINATION TYPE: XR chest 1V DATE OF EXAM: 01/30/2021 COMPARISON: 07/15/2018 HISTORY: 60-year-old male with fever TECHNIQUE: Single frontal view of the chest is obtained. FINDINGS: The heart is normal in size. Pulmonary vasculature within normal limits. Mild patchy densi ty at the right base better seen on the second view. Relative upper lung lucencies. No pleural effusi on. IMPRESSION: COPD. Either some subtle patchy atelectasis versus early infiltrate at the right base seen on the sec ond view.
[2021-01-30 16:57] LABS: Glucose,Whole Blood 188 mg/dL (75-99)
[2021-01-30 20:14] LABS: Glucose,Whole Blood 160 mg/dL (75-99)
[2021-01-30] MEDS: ATORVASTATIN 40 MG TAB PO SCH (20:33)
[2021-01-30] MEDS: hydrALAZINE HCL 25 MG TAB PO PRN (20:33)
[2021-01-30] MEDS: ISOSORBIDE MONONITRATE ER 60 MG TAB.ER.24H PO SCH (20:34)
[2021-01-30] MEDS: ACETAMINOPHEN TAB 325 MG TAB PO PRN (20:34)
[2021-01-30] MEDS ORDERED: AZITHROMYCIN 500 MG in SODIUM CHLORIDE 0.9% 250 ML IVPB SCH (22:00)
[2021-01-30] MEDS ORDERED: IBUPROFEN 400 MG TAB PO STA (22:23)
[2021-01-30] MEDS: PIPERACILLIN-TAZOBACTAM 3.375 GM in SODIUM CHLORIDE 0.9% 100 ML IVPB SCH (22:45)
[2021-01-31] MEDS ORDERED: INSULIN ASPART (NovoLOG) 100 UNIT/ML VIAL SQ ONE (00:10)
[2021-01-31] MEDS ORDERED: FUROSEMIDE 10 MG/ML 4 ML VIAL ONE ×2 (01:14→01:20)
[2021-01-31] MEDS ORDERED: ALBUTEROL NEBULIZED 2.5 MG/3 ML INHALATION STA (01:16)
[2021-01-31 01:28] LABS: Glucose,Whole Blood 194 mg/dL (75-99)
[2021-01-31 01:28] LABS: Glucose,Whole Blood 196 mg/dL (75-99)
[2021-01-31] MEDS ORDERED: FAMOTIDINE 20 MG/2 ML VIAL ONE ×2 (01:31→01:35)
[2021-01-31] MEDS ORDERED: diphenhydrAMINE 50 MG/ML 1 ML VIAL ONE ×2 (01:32→01:35)
[2021-01-31] MEDS ORDERED: methylPREDNISolone SOD SUCCI 125 MG/2 ML VIAL ONE (01:35)
[2021-01-31] MEDS ORDERED: ALPRAZolam 0.25 MG TAB ONE (01:45)
--- NOTE | 2021-01-31 02:09 | P.EN ---
A team called on this patient for sudden onset difficulty in breathing patient is 60 year old confirmed no Code status, being treated for pneumonia, with history of polysubstance abuse. he had a left heart cath that showed no significant disease, CTA showed no acute PE. he is also currently being evaluated by surgery for abd hernia today he was spiking fevers, and having elevated blood pressure upon evalution , patient is in acute respiratory distress , his oxygenation dropped too low below 80% along with cyanosis . for which A team called. lungs, diminished breath sounds with diffuse wheezing , patient using accessory muscles of respiration heart tachycardic no leg edema or tenderness of calf muscles patient given lasix for suspected flash pulmonary edema with elevated blood pressure breathing treatment started and patient placed on non rebreather solumedrol , pepcid and benadryl due to suspected allergic reaction assessment flash pulmonary edema due to elevated blood pressure, ruled out as CXR was unremarkable allergic reaction suspected as patient was receiving first dose of zosyn for past 3 hours, however, no urticaria , no rashes, no hypotension , so this was less likely acute COPD exacerbation with bronchospasm continue with solumedrol 60 mg Q6hr duoneb Q2H PRN and QID supplemental oxygen as needed ABG evaluated and was unremarkable I spent 35 minutes in critical care time not including time for procedures
[2021-01-31] MEDS: INSULIN ASPART (NovoLOG) 100 UNIT/ML VIAL SQ SCH ×4 (02:19→18:12)
[2021-01-31] MEDS ORDERED: IPRATROPIUM-ALBUTEROL 3 ML NEB INHALATION PRN (02:26)
[2021-01-31 03:50] LABS: ABG PCO2 34 mmHg (35-45); ABG PH 7.44 (7.35-7.45); ABG PO2 76 mmHg (83-108); Allen Test Performed? Yes
[2021-01-31 03:51] LABS: ABG Base Excess -0.9 mmol/L; ABG HCO3 23 mmol/L (21-25); ABG TCO2 24 mmol/L (19-24)
[2021-01-31 06:13] LABS: Glucose,Whole Blood 218 mg/dL (75-99)
[2021-01-31] MEDS: methylPREDNISolone SOD SUCCI 125 MG/2 ML VIAL IV SCH ×4 (06:22→23:06)
[2021-01-31] MEDS: PIPERACILLIN-TAZOBACTAM 3.375 GM in SODIUM CHLORIDE 0.9% 100 ML IVPB SCH ×2 (06:22→12:35)
[2021-01-31] MEDS ORDERED: SODIUM CHLORIDE 0.9% 1,000 ML IV SCH (07:30)
[2021-01-31 08:24] LABS: Basophils % (A) 0 %; Eosinophils % (A) 0 %; HCT 40.2 % (39.0-53.0); HGB 13.7 gm/dL (13.0-17.5); Lymphocytes # (A) 0.2 k/uL (1.0-4.8); Lymphocytes % (A) 1 %; MCH 33.2 pg (25.0-35.0); MCV 97.7 fL (80.0-100.0); Mean Platelet Volume 7.7; Monocytes # (A) 0.5 k/uL (0-1.0); Monocytes % (A) 4 %; Neutrophils # (A) 11.5 k/uL (1.3-7.7); Neutrophils % (A) 94 %; Platelet Count 199 k/uL (150-450); RBC 4.12 m/uL (4.30-5.90); RDW 13.3 % (11.5-15.5); WBC 12.3 k/uL (3.8-10.6)
[2021-01-31] MEDS: HEPARIN SODIUM,PORCINE/PF 5,000 UNIT/0.5 ML SYRINGE SQ SCH ×2 (08:24→20:59)
[2021-01-31] MEDS: carBAMazepine 200 MG TAB PO SCH ×2 (08:25→20:59)
[2021-01-31] MEDS: METOPROLOL TARTRATE 50 MG TAB PO SCH ×3 (08:25→20:59)
[2021-01-31] MEDS: PANTOPRAZOLE 40 MG TABLET PO SCH (08:25)
[2021-01-31] MEDS: LOSARTAN 50 MG TAB PO SCH (08:25)
[2021-01-31] MEDS: ASPIRIN 81 MG PO SCH (08:25)
[2021-01-31] MEDS: amLODIPine 5 MG TAB PO SCH (08:25)
[2021-01-31 08:26] LABS: ALT 31 U/L (4-49); AST 48 U/L (17-59); African American GFR (CKD) >90 (>60 ml/min/1.73 sqM); Albumin 3.6 g/dL (3.5-5.0); Alkaline Phosphatase 70 U/L (38-126); Anion Gap 14 mmol/L; Blood Urea Nitrogen 22 mg/dL (9-20); Calcium 8.9 mg/dL (8.4-10.2); Carbon Dioxide 22 mmol/L (22-30); Chloride 97 mmol/L (98-107); Glucose 345 mg/dL (74-99); Magnesium 1.6 mg/dL (1.6-2.3); Non-African American GFR(CKD) 87 (>60 ml/min/1.73 sqM); Potassium 3.9 mmol/L (3.5-5.1); Sodium 133 mmol/L (137-145); Total Bilirubin 0.6 mg/dL (0.2-1.3); Total Protein 6.6 g/dL (6.3-8.2)
[2021-01-31] MEDS: IPRATROPIUM-ALBUTEROL 3 ML NEB INHALATION SCH ×4 (08:30→20:42)
[2021-01-31] MEDS: SYMBICORT 160-4.5 MCG INHALER INHALATION SCH ×2 (08:30→20:57)
[2021-01-31] MEDS ORDERED: FUROSEMIDE 10 MG/ML 4 ML VIAL IV SCH (10:15)
[2021-01-31 12:20] LABS: Glucose,Whole Blood 447 mg/dL (75-99)
[2021-01-31 12:27] LABS: Glucose,Whole Blood 442 mg/dL (75-99)
[2021-01-31] MEDS: NON FORMULARY DRUG (Empagliflozin [Jardiance] 25 MG Tablet) PO SCH (12:31)
--- NOTE | 2021-01-31 12:37 | P.PN ---
Subjective This is a 60-year-old male with a past medical history of hypertension, hyperlipidemia, type 2 diabetes, chronic nicotine dependence, sleep apnea, se izure disorder. He follows with Dr. Prescott in the office, last seen in 2018. He presented emergency department with chest pain. He also had mild elevated troponin consistent with NSTEMI. He underwent cardiac catheterization with Dr. Cuadra 01/28/21 which revealed nonobstructive coronary artery disease involving the left circumflex. Elevated left ventricular end-diastolic pressure 26- 30mmHg. CTA- negative for pulmonary embolism Echocardiogram revealed EF of 5055 percent, RV is moderately to severely enlarged, trace mitral regurgitation, mild tricuspid regurgitation 01/30 Overnight- patient was found to be in respiratory distress. His oxygenation saturations dropped 70s% along with cyanosis. He also noted to have fevers of Tmax 103.2F. He was tachycardic, using his accessory muscles. A team was called. Patient was given IV Lasix, placed on a non-rebreather, solumedrol, pepcid and benadryl due to possible reaction to Zosyn first dose received within 3 hours. ABG was performed. 01/31/21 Patient seen and examined at bedside, no acute distress. He cannot specifically recall the event that happened overnight. He does remember "seeing brother and father who have ". He does endorse some shortness of breath and new orthopnea. He denies any chest pain, lightheadedness, dizziness, palpitations. He states he slept well last night. He is lying flat in bed, breathing com fortably. Blood pressure 108/62, heart rate 90, afebrile, maintaining oxygen saturations on 2 L nasal cannula. He's currently maintained on amlodipine 5 mg daily, aspirin 81 mg daily, atorvastatin 40 mg daily, hydrochlorothiazide 50 mg daily, Imdur 60 mg nightly, losartan 100 mg daily, metoprolol tartrate 50 mg 3 times a day. He does endorse feeling diaphoretic overnight. GENERAL: Appears slightly short of breath, but comfortable. NECK: Supple without JVD LUNGS: Breath sounds wheezing bilaterally to auscultation bilaterally. Respiration equal and unlabored. HEART: Regular rate and rhythm Systolic murmur at base, No rubs or gallops. S1 and S2 heard. EXTREMITIES: Normal range of motion, no edema. No clubbing or cyanosis. Peripheral pulses intact. SKIN: Right radial cath site clean dry intact no hematoma ASSESSMENT Non-obstructive coronary artery disease Chest pain Shortness of breath Fever Acute hypoxic respiratory failure History of hypertension Hyperlipidemia Type 2 diabetes Chronic nicotine dependence Sleep apnea History of seizure disorder PLAN Give IV Lasix 40mg today Discontinue hydrochlorothiazide I/Os, monitor renal function and electrolytes Continue current medical therapy amlodipine 5 mg daily, aspirin 81 mg daily, atorvastatin 40 mg daily, Imdur 60 mg nightly, losartan 100 mg daily, metoprolol tartrate 50 mg TID Pulmonary following Further recommendations based on clinical course Nurse Practitioner note has been reviewed, I agree with a documented findings and plan of care. Patient was seen and examined. Objective - Vital Signs Vital signs: Vital Signs Temp 98.3 F 01/31/21 07:00 Pulse 99 01/31/21 08:46 Resp 18 01/31/21 07:00 BP 108/62 01/31/21 07:00 Pulse Ox 96 01/31/21 07:00 Intake & Output 01/30/21 01/31/21 01/31/21 18:59 06:59 18:59 Intake Total 0 800 Output Total 300 700 Balance -300 100 Intake: Oral 0 800 Output: Urine 300 700 Other: Voiding Method Toilet Toilet Toilet Urinal Urinal Urinal # Voids 4 1 - Labs CBC & Chem 7: 01/31/21 07:41 01/31/21 07:41 Labs: Abnormal Lab Results - Last 24 Hours (Table) 01/30/21 01/30/21 01/31/21 Range/Units 16:56 20:13 00:02 WBC (3.8-10.6) k/uL RBC (4.30-5.90) m/uL Neutrophils # (1.3-7.7) k/uL Lymphocytes # (1.0-4.8) k/uL ABG pCO2 (35-45) mmHg ABG pO2 (83-108) mmHg Sodium (137-145) mmol/L Chloride (98-107) mmol/L BUN (9-20) mg/dL Glucose (74-99) mg/dL POC Glucose (mg/dL) 188 H 160 H 194 H (75-99) mg/dL Procalcitonin (0.02-0.09) ng/mL 0901/31/21 01/31/21 Range/Units 01:15 01:45 06:11 WBC (3.8-10.6) k/uL RBC (4.30-5.90) m/uL Neutrophils # (1.3-7.7) k/uL Lymphocytes # (1.0-4.8) k/uL ABG pCO2 34 L (35-45) mmHg ABG pO2 76 L (83-108) mmHg Sodium (137-145) mmol/L Chloride (98-107) mmol/L BUN (9-20) mg/dL Glucose (74-99) mg/dL POC Glucose (mg/dL) 196 H 218 H (75-99) mg/dL Procalcitonin (0.02-0.09) ng/mL 01/31/21 01/31/21 01/31/21 Range/Units 07:41 07:41 07:41 WBC 12.3 H (3.8-10.6) k/uL RBC 4.12 L (4.30-5.90) m/uL Neutrophils # 11.5 H (1.3-7.7) k/uL Lymphocytes # 0.2 L (1.0-4.8) k/uL ABG pCO2 (35-45) mmHg ABG pO2 (83-108) mmHg Sodium 133 L (137-145) mmol/L Chloride 97 L (98-107) mmol/L BUN 22 H (9-20) mg/dL Glucose 345 H (74-99) mg/dL POC Glucose (mg/dL) (75-99) mg/dL Procalcitonin 5.25 H (0.02-0.09) ng/mL 01/31/21 Range/Units 12:17 WBC (3.8-10.6) k/uL RBC (4.30-5.90) m/uL Neutrophils # (1.3-7.7) k/uL Lymphocytes # (1.0-4.8) k/uL ABG pCO2 (35-45) mmHg ABG pO2 (83-108) mmHg Sodium (137-145) mmol/L Chloride (98-107) mmol/L BUN (9-20) mg/dL Glucose (74-99) mg/dL POC Glucose (mg/dL) 447 H (75-99) mg/dL Procalcitonin (0.02-0.09) ng/mL
--- NOTE | 2021-01-31 13:17 | P.PN ---
Subjective This is a pleasant 60 years old male with past medical history of diabetes mellitus, deep venous thrombosis, hypertension, hyperlipidemia, seizure d isorder, closed head injury. His patient of Dr. Pang Presents with severe chest pain, 60/10, now feels a little better almost disappeared as 0/10. Central, nonradiating pain. Feels like squeezing No nausea vomiting, no change in urine habits or bowel movements. He denies abdominal pain or tenderness, he has slight umbilical hernia He smokes half pack per day, he is counseled to quit and he agrees but he denies nicotine patch. He drinks 1 beer a day for 3 days a week, no illicit drugs He has history of DVT 3 years ago, currently not on anticoagulation Blood pressure is elevated on admission and currently 186/95 Rest of Vitas looks stable, he is slightly tachypneic at 18-22 and afebrile labs showing mild leukocytosis of 12.4 K, INR 0.9, BMP and liver enzymes are unremarkable with sodium 134, magnesium 1.5, Troponin is elevated at 0.07-0.07 and 0.05. Lipase normal at 30, proBNP is normal at 332 EKG showed normal sinus rhythm at [address]-T changes. QTC is 469 CTA of the chest: No pulmonary embolism, pulmonary emphysema, no aneurysm or dissection. CT of the abdomen and pelvis with contrast: Incarcerated ventral hernia containing transverse colon. No bowel obstruction. Hernia appears new compared to old exam. There is good and retro-peritoneal fluid and fat stranding compared to old exam. Low-density adrenal masses and change. Sigmoid diverticulosis unchanged Emergency room he was started on normal saline, Dilaudid, several doses of labetalol, aspirin 324 mg 01/29/2021 Patient is awake and comfortable today. With no chest pain is still have some d yspnea especially with exertion with some decreased air entry on both sides His blood pressure still mildly elevated 167/75 this morning. 9 WBC slightly up at 12.2 but he has chronic mild leukocytosis. He had a cardiac cath yesterday which failed to show significant stenoses in the coronary arteries. Currently now was continued in the medical treatment He is on multiple blood pressure medication of Vicodin Norvasc 5 mg, low Zartan 100 mg, hydrochlorothiazide 25 mg and metoprolol 50 mg 3 times a day, Imdur 60 mg daily. Also he is on aspirin 81 mg. His creatinine normal and we can stop his IV fluids, D5 half normal saline at 75 mL/h Echocardiogram is pending 01/30/2021 Patient breathing was doing okay, his blood pressure is better controlled on the correct regiment suggested by motorman/woman on Norvasc 5 mg, losartan 100 mg, hydrochlorothiazide 50 mg and metoprolol 50 mg 3 times a day as well as Imdur 60 mg however today he is developing low-grade temperature and mild leukocytosis.He has chronic leukocytosis though . We'll do some workup with chest x-ray and urinalysis. Urinary input is appreciated. Cardiogram still pending which was done this morning and result isn't back yet. In the meantime he denies any chest pain with cardiac cath with no significant illness. 01/31/2021 Yesterday patient spiked a fever of 103, workup was showing possible early right lower lobe pneumonia, patient was started on Zosyn. This morning patient was awake and alert however he was very lethargic and tired and sweating. Blood pressure 125/64, heart rate is controlled. He was saturating 94% on 2 L oxygen via nasal cannula. He was having persistent leukocytosis of 12.3, glucose is elevated at 442, labs have reviewed. pro-Calcitonin is elevated to 5.2. Urine analysis is unremarkable. Blood culture is ordered and is pending. Besides Zosyn his also started on oral Zithromax, so Medrol 60 mg, normal saline at 75 mL/h also he is on several antihypertensive medication including Norvasc 5 mg, losartan 100 mg, metoprolol 50 mg 3 times a day, Imdur 60 mg. And today switching his hydrochlorothiazide to Lasix 40 mg IV daily. Pulmonary and cardiology team on the case, discussed with staff Objective - Vital Signs Vital signs: Vital Signs Temp 98.3 F 01/31/21 07:00 Pulse 76 01/31/21 12:43 Resp 16 01/31/21 12:43 BP 125/69 01/31/21 12:43 Pulse Ox 94 L 01/31/21 12:43 Intake & Output 01/30/21 01/31/21 01/31/21 18:59 06:59 18:59 Intake Total 0 800 Output Total 300 700 Balance -300 100 Intake: Oral 0 800 Output: Urine 300 700 Other: Voiding Method Toilet Toilet Toilet Urinal Urinal Urinal # Voids 4 1 - Exam -GENERAL: The patient is alert and oriented x3, not in any acute distress. Obese HEENT: Pupils are round and equally reacting to light. EOMI. No scleral icterus. No conjunctival pallor. Normocephalic, atraumatic. No pharyngeal erythema. No thyromegaly. CARDIOVASCULAR: S1 and S2 present. No murmurs, rubs, or gallops. PULMONARY: Chest is clear to auscultation, no wheezing or crackles. ABDOMEN: Soft, nontender, nondistended, normoactive bowel sounds. No palpable organomegaly. MUSCULOSKELETAL: No joint swelling or deformity. EXTREMITIES: No cyanosis, clubbing, or pedal edema. NEUROLOGICAL: Gross neurological examination did not reveal any focal deficits. SKIN: No rashes. no petechiae. - Labs CBC & Chem 7: 01/31/21 07:41 01/31/21 07:41 Labs: Abnormal Lab Results - Last 24 Hours (Table) 01/30/21 01/30/21 01/31/21 Range/Units 16:56 20:13 00:02 WBC (3.8-10.6) k/uL RBC (4.30-5.90) m/uL Neutrophils # (1.3-7.7) k/uL Lymphocytes # (1.0-4.8) k/uL ABG pCO2 (35-45) mmHg ABG pO2 (83-108) mmHg Sodium (137-145) mmol/L Chloride (98-107) mmol/L BUN (9-20) mg/dL Glucose (74-99) mg/dL POC Glucose (mg/dL) 188 H 160 H 194 H (75-99) mg/dL Procalcitonin (0.02-0.09) ng/mL 01/31/21 01/31/21 01/31/21 Range/Units 01:15 01:45 06:11 WBC (3.8-10.6) k/uL RBC (4.30-5.90) m/uL Neutrophils # (1.3-7.7) k/uL Lymphocytes # (1.0-4.8) k/uL ABG pCO2 34 L (35-45) mmHg ABG pO2 76 L (83-108) mmHg Sodium (137-145) mmol/L Chloride (98-107) mmol/L BUN (9-20) mg/dL Glucose (74-99) mg/dL POC Glucose (mg/dL) 196 H 218 H (75-99) mg/dL Procalcitonin (0.02-0.09) ng/mL 01/31/21 01/31/21 01/31/21 Range/Units 07:41 07:41 07:41 WBC 12.3 H (3.8-10.6) k/uL RBC 4.12 L (4.30-5.90) m/uL Neutrophils # 11.5 H (1.3-7.7) k/uL Lymphocytes # 0.2 L (1.0-4.8) k/uL ABG pCO2 (35-45) mmHg ABG pO2 (83-108) mmHg Sodium 133 L (137-145) mmol/L Chloride 97 L (98-107) mmol/L BUN 22 H (9-20) mg/dL Glucose 345 H (74-99) mg/dL POC Glucose (mg/dL) (75-99) mg/dL Procalcitonin 5.25 H (0.02-0.09) ng/mL 01/31/21 01/31/21 Range/Units 12:17 12:22 WBC (3.8-10.6) k/uL RBC (4.30-5.90) m/uL Neutrophils # (1.3-7.7) k/uL Lymphocytes # (1.0-4.8) k/uL ABG pCO2 (35-45) mmHg ABG pO2 (83-108) mmHg Sodium (137-145) mmol/L Chloride (98-107) mmol/L BUN (9-20) mg/dL Glucose (74-99) mg/dL POC Glucose (mg/dL) 447 H 442 H (75-99) mg/dL Procalcitonin (0.02-0.09) ng/mL Assessment and Plan Assessment: Low-grade fever, possible early right lower pneumonia, hospital-acquired Chest pain, with negative cardiac cath and negative CTA for pulmonary embolism. Resolved Hypertension with urgency on admission Abdominal hernia, patient with incarcerated ventral hernia containing transverse colon. Already evaluated by surgeonGo ahead recommend close outpatient follow- up Pulmonary emphysema Hyperlipidemia Diabetes mellitus History of deep venous thrombosis, not on anticoagulation History of seizure disorder History of closed head injury Plan: This is a pleasant 60 years old male who presents with chest pain and hypertension Continue with Zosyn, Zithromax and IV fluid, and follow-up with pulmonary service. Follow-up blood culture Resume His home medications and monitor his blood pressure carefully. Cardiology consult, with negative cardiac cath Surgical team consult. They recommended follow-up for his hernia disease Labs and medication were reviewed.. Continue same treatment. Continue with symptomatic treatment. Resume home medication. Monitor lytes and vitals. DVT and GI prophylaxis. Further recommendations depends on the clinical course of the patient DVT prophylaxis: Subcutaneous heparin GI Prophylaxis: Ppi Prognosis is guarded
--- NOTE | 2021-01-31 14:58 | P.PN ---
Subjective Progress Note Date: 01/31/21 Principal diagnosis: Chest pain, acute exacerbation of COPD 60-year-old white male patient, with over [id number] smoking history, currently down to half a pack a day, does not follow with a lung specialist, he is not on any maintenance inhalers or breathing treatments, also has history of hypertension, hyperlipidemia, diabetes mellitus type 2, history of DVT, seizure disorder, history of closed head injury of unclear circumstances who came into the emergency department on 01/27/2021 for evaluation of chest pain, and diaphoresis. His EKG showed normal sinus rhythm. Patient follows with Dr. Pang for primary care services. His chest pain was central, nonradiating, a nd felt like squeezing discomfort. Had no nausea or vomiting, no fever or chills, denies any cough or phlegm production. Patient drinks about 1 beer a day 3 days a week, denies any use of illicit drugs. His history of DVT was from 3 years ago, currently not on any anticoagulation. On presentation his blood pressure was elevated, however his other vitals looked stable. No fever, his labs showed mild leukocytosis with a white count of 12.4, hemoglobin 14.5, platelet count of 254, INR of 0.9, sodium 134, depressed electrolytes were within normal limits, BUN is 14 creatinine 0.65, LFTs were within normal limits, his troponins were 0.071, 0.070, 0.056, proBNP was 332. Lipase was 30. CTA ch est was completed showing no evidence of pulmonary embolism, over there was pulmonary emphysema noted in the upper and lower lobes bilaterally. No acute lung disease. CT of the abdomen and pelvis with contrast was completed showing incarcerated ventral hernia containing transverse colon, no bowel obstruction, and there was clearing of the retroperitoneal fluid and fat stranding compared old exam. Sigmoid diverticulosis was unchanged. Patient underwent cardiac evaluation, and cardiac catheterization today on 01 29 2021 which showed minimal plaque involving the left circumflex, and elevated left ventricular end- diastolic pressure 26-30 mmHg. Patient was also seen by general surgery for incarcerated incisional hernia, with the recommendation for surgical intervention in the near future. In the meantime he is tolerating oral diet. We were asked to see the patient in evaluation possibility of pulmonary causes of his chest pain. Currently has no chest pain, he is sitting up on H2 bed, breathing comfortably, he is on room air, no cough, no chest discomfort, no phlegm production, no hemoptysis. Lung sounds are quite diminished bilaterally, no wheezing or rhonchi noted. Today's labs have been noted showing white blood cell, 12.2, hemoglobin of 13.3, sodium is 132, the rest of electrolytes were within normal limits, BUN of 7 creatinine 0.45. On 01/31/2021 patient seen in follow-up on selective care unit, this morning around 1 in the morning rapid response team was called for evaluation of sudden onset of difficulty in breathing. Patient he did have fevers, and elevated blood pressure. He was also desaturating to below 80% on room air, he was cyanotic, bronchospastic, and using accessory muscles of respirations. The was no leg edema or tenderness of calf muscles. Patient was suspected to have flash pulmonary edema with elevated blood pressure and he received a dose of IV Lasix he was placed on a nonrebreather mask, he was given a dose of IV Solu-Medrol, Pepcid and Benadryl for a suspected ALLERGIC reaction. Chest x-ray was completed and was unremarkable. Subsequently his breathing improved in response to diuretics, steroids, and oxygen. he was placed on a combination of azithromycin and Zosyn for empiric antibiotic coverage, he does have underlying COPD, which is active right now, he continues on Solu-Medrol 60 mg every 6 hours, he is on bronchodilators, and he continues on empiric antibiotics. Currently he is resting comfortably in bed, he continues on liters of oxygen his pulse ox is 94%, he is afebrile, his labs have been reviewed, his white blood cell count is 4.3, hemoglobin is 13.7, sodium is 133, potassium 3.9, chloride is 97, CO2 was 22, B1 is 22, creatinine 0.96. ProBNP was 593. Sounds still reveal diminished breath sounds with diffuse wheezing on forced exhale expiration maneuver. Objective - Vital Signs Vital signs: Vital Signs Temp 98.3 F 01/31/21 07:00 Pulse 76 01/31/21 12:43 Resp 16 01/31/21 12:43 BP 125/69 01/31/21 12:43 Pulse Ox 94 L 01/31/21 12:43 Intake & Output 01/30/21 01/31/21 01/31/21 18:59 06:59 18:59 Intake Total 0 800 Output Total 300 700 Balance -300 100 Intake: Oral 0 800 Output: Urine 300 700 Other: Voiding Method Toilet Toilet Toilet Urinal Urinal Urinal # Voids 4 1 - Exam GENERAL EXAM: Alert, very pleasant, 60-year-old white male, sitting up in his to bed, he is currently on 2 L of oxygen with a pulse ox of 94%, comfortable in no apparent distress. HEAD: Normocephalic/atraumatic. EYES: Normal reaction of pupils, equal size. Conjunctiva pink, sclera white. NOSE: Clear with pink turbinates. THROAT: No erythema or exudates. NECK: No masses, no JVD, no thyroid enlargement, no adenopathy. CHEST: No chest wall deformity. Symmetrical expansion. LUNGS: Equal air entry with no crackles, wheeze, rhonchi or dullness. CVS: Regular rate and rhythm, normal S1 and S2, no gallops, no murmurs, no rubs ABDOMEN: Soft, nontender. No hepatosplenomegaly, normal bowel sounds, no guarding or rigidity. EXTREMITIES: No clubbing, no edema, no cyanosis, 2+ pulses and upper and lower extremities. MUSCULOSKELETAL: Muscle strength and tone normal. SPINE: No scoliosis or deformity SKIN: No rashes CENTRAL NERVOUS SYSTEM: Alert and oriented -3. No focal deficits, tone is normal in all 4 extremities. PSYCHIATRIC: Alert and oriented -3. Appropriate affect. Intact judgment and insight. - Labs CBC & Chem 7: 01/31/21 07:41 01/31/21 07:41 Labs: Abnormal Lab Results - Last 24 Hours (Table) 01/30/21 01/30/21 01/31/21 Range/Units 16:56 20:13 00:02 WBC (3.8-10.6) k/uL RBC (4.30-5.90) m/uL Neutrophils # (1.3-7.7) k/uL Lymphocytes # (1.0-4.8) k/uL ABG pCO2 (35-45) mmHg ABG pO2 (83-108) mmHg Sodium (137-145) mmol/L Chloride (98-107) mmol/L BUN (9-20) mg/dL Glucose (74-99) mg/dL POC Glucose (mg/dL) 188 H 160 H 194 H (75-99) mg/dL Procalcitonin (0.02-0.09) ng/mL 01/31/21 01/31/21 01/31/21 Range/Units 01:15 01:45 06:11 WBC (3.8-10.6) k/uL RBC (4.30-5.90) m/uL Neutrophils # (1.3-7.7) k/uL Lymphocytes # (1.0-4.8) k/uL ABG pCO2 34 L (35-45) mmHg ABG pO2 76 L (83-108) mmHg Sodium (137-145) mmol/L Chloride (98-107) mmol/L BUN (9-20) mg/dL Glucose (74-99) mg/dL POC Glucose (mg/dL) 196 H 218 H (75-99) mg/dL Procalcitonin (0.02-0.09) ng/mL 01/31/21 01/31/21 01/31/21 Range/Units 07:41 07:41 07:41 WBC 12.3 H (3.8-10.6) k/uL RBC 4.12 L (4.30-5.90) m/uL Neutrophils # 11.5 H (1.3-7.7) k/uL Lymphocytes # 0.2 L (1.0-4.8) k/uL ABG pCO2 (35-45) mmHg ABG pO2 (83-108) mmHg Sodium 133 L (137-145) mmol/L Chloride 97 L (98-107) mmol/L BUN 22 H (9-20) mg/dL Glucose 345 H (74-99) mg/dL POC Glucose (mg/dL) (75-99) mg/dL Procalcitonin 5.25 H (0.02-0.09) ng/mL 01/31/21 01/31/21 Range/Units 12:17 12:22 WBC (3.8-10.6) k/uL RBC (4.30-5.90) m/uL Neutrophils # (1.3-7.7) k/uL Lymphocytes # (1.0-4.8) k/uL ABG pCO2 (35-45) mmHg ABG pO2 (83-108) mmHg Sodium (137-145) mmol/L Chloride (98-107) mmol/L BUN (9-20) mg/dL Glucose (74-99) mg/dL POC Glucose (mg/dL) 447 H 442 H (75-99) mg/dL Procalcitonin (0.02-0.09) ng/mL Assessment and Plan Plan: Assessment: #1. Chest pain with mild troponin elevation, consistent with non-ST elevated myocardial infarction, status post heart catheterization on 01/29/2021 showing minimal plaque involving the left circumflex and elevated LVEDP of 26-30 mmHg. CTA chest ruled out possibility of pulmonary embolism #2. Acute exacerbation of COPD, with the sudden onset of shortness of breath wheezing, possibility of an ALLERGIC reaction is not completely excluded although it is not clear what may have precipitated the attack. Patient is currently on IV steroids, he was started on antibiotics in the form of Zosyn and azithromycin, and nebulized bronchodilators, he was also given a dose of IV Lasix. Currently improved breathing, chest x-ray is unremarkable #3. Evidence of pulmonary emphysema on CTA chest from extensive history of smoking #4. COPD, not active at this time, severity is not known, but not oxygen dependent at baseline #5. [id number] history of smoking, chronic and ongoing, currently down to half a pack a day #6. Diabetes mellitus type 2 #7. Hypertension #8. Hyperlipidemia #9. History of closed head injury #10. Seizure disorder #11. Incarcerated ventral hernia containing transverse colon, no bowel obstruction, patient will need surgery in the near future, general surgery is following Plan: Agree with IV steroids, Bronchodilators Currently patient reports improvement in his breathing Still mildly dyspneic and bronchospastic Chest x-ray reviewed and is unremarkable We'll switch antibiotic coverage to oral doxycycline We'll continue to follow I performed a history & physical examination of the patient and discussed their management with my nurse practitioner, Yahaira Morrison. I reviewed the nurse practitioner's note and agree with the documented findings and plan of care. Lung sounds are positive for diminished breath sounds throughout the lung figueredo. The findings and the impression was discussed with the patient. I attest to the documentation by the nurse practitioner. Time with Patient: Less than 30
[2021-01-31] MEDS ORDERED: INSULIN REGULAR BOLUS (FROM DRIP BAG) IV ONE ×2 (17:05→17:10)
[2021-01-31 17:08] LABS: Glucose,Whole Blood 320 mg/dL (75-99)
[2021-01-31] MEDS ORDERED: INSULIN ASPART (NovoLOG) 100 UNIT/ML VIAL SQ SCH (17:30)
[2021-01-31 18:02] LABS: Glucose,Whole Blood 275 mg/dL (75-99)
[2021-01-31] MEDS: INSULIN REGULAR 100 UNIT in SODIUM CHLORIDE 0.9% 100 ML IV SCH (18:09)
[2021-01-31 19:06] LABS: Glucose,Whole Blood 151 mg/dL (75-99)
[2021-01-31] MEDS: hydrALAZINE HCL 25 MG TAB PO PRN (19:53)
[2021-01-31 20:02] LABS: Glucose,Whole Blood 101 mg/dL (75-99)
[2021-01-31 20:42] LABS: Glucose,Whole Blood 127 mg/dL (75-99)
[2021-01-31] MEDS: ISOSORBIDE MONONITRATE ER 60 MG TAB.ER.24H PO SCH (20:59)
[2021-01-31] MEDS: ATORVASTATIN 40 MG TAB PO SCH (20:59)
[2021-01-31] MEDS: ALPRAZolam 0.5 MG TAB PO PRN (20:59)
[2021-01-31] MEDS ORDERED: PIPERACILLIN-TAZOBACTAM 3.375 GM in SODIUM CHLORIDE 0.9% 100 ML IVPB SCH (21:00)
[2021-01-31] MEDS ORDERED: METOPROLOL TARTRATE 50 MG TAB PO STA (21:25)
[2021-01-31] MEDS: ACETAMINOPHEN TAB 325 MG TAB PO PRN (21:30)
[2021-01-31] MEDS: ONDANSETRON 4 MG/2 ML VIAL IVP PRN (21:30)
[2021-01-31] MEDS: SODIUM CHLORIDE 0.9% 250 ML IV SCH ×2 (21:39→23:10)
[2021-01-31 22:01] LABS: Glucose,Whole Blood 130 mg/dL (75-99)
[2021-01-31 22:05] LABS: African American GFR (CKD) >90 (>60 ml/min/1.73 sqM); Anion Gap 14 mmol/L; Blood Urea Nitrogen 34 mg/dL (9-20); Calcium 9.5 mg/dL (8.4-10.2); Carbon Dioxide 22 mmol/L (22-30); Chloride 101 mmol/L (98-107); Glucose 138 mg/dL (74-99); Non-African American GFR(CKD) >90 (>60 ml/min/1.73 sqM); Potassium 3.6 mmol/L (3.5-5.1); Sodium 137 mmol/L (137-145)
[2021-01-31] MEDS ORDERED: RX INFO: IV CONTRAST WAS GIVEN 1 EACH MISC MISCELLANE PRN (22:44)
[2021-01-31] MEDS ORDERED: CEFEPIME 2 GM in SODIUM CHLORIDE 0.9% 100 ML IVPB ONE (23:00)
[2021-01-31] MEDS: IOPAMIDOL CONTRAST (ORAL USE) VIAL PO PRN (23:33)
[2021-02-01 00:03] LABS: Glucose,Whole Blood 152 mg/dL (75-99)
[2021-02-01] MEDS: IOPAMIDOL CONTRAST (ORAL USE) VIAL PO PRN (00:30)
--- NOTE | 2021-02-01 02:09 | CT ---
EXAMINATION TYPE: CT ChestAbdPelvis wo con DATE OF EXAM: 02/01/2021 COMPARISON: 01/28/2021 HISTORY: Sepsis/ SOB CT DLP: 1179.8 mGycm Automated exposure control for dose reduction was used. Images obtained from the thoracic inlet to the floor the pelvis with oral contrast only. There is some pulmonary emphysema. The lungs are clear of consolidation. There is no evidence of a pu lmonary mass. Heart size is normal. There is no pericardial effusion. There is no mediastinal adenopa thy. Thoracic aorta is intact. There are no hilar masses. There is gallbladder wall thickening. Gallbladder is dilated and measures 5.3 cm in diameter. Liver s hows no focal defect. Spleen is intact. There is no pancreatic mass. The bile ducts are not dilated. There are calcifications along the anterior abdominal wall consistent with previous surgery.Kidneys h ave normal size. There is no hydronephrosis. There is 5 mm calculus anterior left kidney. There is 1. 5 cm hypodense right adrenal mass. There is 1 cm hypodense left adrenal mass. This is suggestive of benign disease. There is no retroperitoneal adenopathy. There is incarcerated left side abdominal wall hernia that co ntains transverse colon and also small bowel. There is soft tissue subcutaneous air bubbles on the ri ght anterior abdomen probably from injection site. Bladder distends smoothly. There is no inguinal he rnia. There is no free fluid in the pelvis. There is no mesenteric edema. There is no ascites or free air. There is no bowel obstruction. Appendi x appears normal. There are multiple sigmoid diverticula. I see no sign of diverticulitis. Thoracic and lumbar spine appear intact. There is no compression fracture. Sternum is intact. The bon y pelvis is intact. IMPRESSION: There is dilated gallbladder with wall thickening. There is progression of the wall thickening and ed gregory compared to recent exam and consistent with acute cholecystitis. Left side abdominal wall ventral hernia containing incarcerated bowel without evidence of a bowel obs truction.
[2021-02-01 02:10] LABS: Glucose,Whole Blood 201 mg/dL (75-99)
[2021-02-01] MEDS: SODIUM CHLORIDE 0.9% 250 ML IV SCH ×8 (03:33→04:57)
[2021-02-01 04:05] LABS: Glucose,Whole Blood 176 mg/dL (75-99)
[2021-02-01 05:59] LABS: Glucose,Whole Blood 152 mg/dL (75-99)
[2021-02-01] MEDS: methylPREDNISolone SOD SUCCI 125 MG/2 ML VIAL IV SCH ×2 (06:30→12:09)
[2021-02-01 07:03] LABS: Basophils # (A) 0.1 k/uL (0-0.2); Basophils % (A) 1 %; Eosinophils # (A) 0.1 k/uL (0-0.7); Eosinophils % (A) 1 %; HCT 37.2 % (39.0-53.0); Lymphocytes # (A) 0.5 k/uL (1.0-4.8); Lymphocytes % (A) 5 %; MCH 33.8 pg (25.0-35.0); MCHC 34.9 g/dL (31.0-37.0); MCV 96.8 fL (80.0-100.0); Mean Platelet Volume 7.6; Monocytes # (A) 0.8 k/uL (0-1.0); Monocytes % (A) 7 %; Neutrophils # (A) 9.2 k/uL (1.3-7.7); Neutrophils % (A) 84 %; Platelet Count 182 k/uL (150-450); RBC 3.84 m/uL (4.30-5.90); RDW 13.9 % (11.5-15.5); WBC 10.9 k/uL (3.8-10.6)
[2021-02-01 07:21] LABS: Glucose,Whole Blood 125 mg/dL (75-99)
[2021-02-01 07:41] LABS: Albumin 3.1 g/dL (3.5-5.0); Calcium 8.7 mg/dL (8.4-10.2); Magnesium 1.7 mg/dL (1.6-2.3); Total Bilirubin 0.4 mg/dL (0.2-1.3); Total Protein 5.8 g/dL (6.3-8.2)
[2021-02-01] MEDS: ACETAMINOPHEN TAB 325 MG TAB PO PRN (07:58)
[2021-02-01] MEDS: PANTOPRAZOLE 40 MG TABLET PO SCH (07:59)
[2021-02-01] MEDS: ASPIRIN 81 MG PO SCH (07:59)
[2021-02-01] MEDS: carBAMazepine 200 MG TAB PO SCH ×2 (07:59→21:31)
[2021-02-01] MEDS: HEPARIN SODIUM,PORCINE/PF 5,000 UNIT/0.5 ML SYRINGE SQ SCH ×2 (08:00→21:43)
[2021-02-01] MEDS ORDERED: SODIUM CHLORIDE 0.9% 1,000 ML IV ONE ×3 (08:25→09:17)
[2021-02-01 08:27] LABS: Glucose,Whole Blood 166 mg/dL (75-99)
[2021-02-01] MEDS ORDERED: CEFEPIME 2 GM in SODIUM CHLORIDE 0.9% 100 ML IVPB SCH (08:30)
[2021-02-01] MEDS: SYMBICORT 160-4.5 MCG INHALER INHALATION SCH ×2 (08:30→18:53)
[2021-02-01] MEDS: IPRATROPIUM-ALBUTEROL 3 ML NEB INHALATION SCH ×4 (08:30→18:52)
[2021-02-01] MEDS ORDERED: DAPTOmycin 500 MG in SODIUM CHLORIDE 0.9% 50 ML IVPB SCH (09:00)
[2021-02-01] MEDS ORDERED: DOXYCYCLINE 100 MG CAP PO SCH (09:00)
[2021-02-01] MEDS: NON FORMULARY DRUG (Empagliflozin [Jardiance] 25 MG Tablet) PO SCH (09:21)
[2021-02-01 10:35] LABS: Glucose,Whole Blood 167 mg/dL (75-99)
[2021-02-01 10:43] LABS: Amylase 33 U/L (30-110); Lipase 15 U/L (23-300)
--- NOTE | 2021-02-01 10:48 | P.PN ---
<DelbertKeysha porter - Last Filed: 02/01/21 10:34> Subjective Progress Note Date: 02/01/21 CHIEF COMPLAINT: Abdominal pain HISTORY OF PRESENT ILLNESS: This is a 60-year-old male who was initially seen by surgical service and due to incarcerated incisional hernia. We have been reconsulted for acute cholecystitis. Patient started to spike fevers. He had reported right upper quadrant abdominal pain and vomiting after eating. T-max of 103.2 yesterday. He had a temp of 102.3 this morning he has been tachycardic and hypotensive. WBC elevated at 12.3 yesterday has come down to 10.9. Patient has evidence of sepsis. He did receive a dose of cefepime and has been started on IV Zosyn. Patient does have right upper quadrant tenderness on exam. He still complains of abdominal discomfort at his hernia site. He reports having bowel movements. He has been having chills. Computed tomography scan abdomen and pelvis showed dilated gallbladder with wall thickening. There is progression of the wall thickening and edema compared to recent exam and consistent with acute cholecystitis. Left-sided abdominal wall ventral hernia containing incarcerated bowel without evidence of bowel obstruction. Patient was made nothing by mouth. She is also being treated for COPD exacerbation. He had a heart catheterization during this admission showing minimal plaque involving the left circumflex. PHYSICAL EXAM: VITAL SIGNS: Reviewed. GENERAL: Well-developed in no acute distress. HEENT: No sclera icterus. Extraocular movements grossly intact. Moist buccal mucosa. Head is atraumatic, normocephalic. ABDOMEN: Soft. Nondistended. Tenderness with palpation of the right upper quadrant. Palpable incisional hernia without tenderness. NEUROLOGIC: Alert and oriented. Cranial nerves II through XII grossly intact. ASSESSMENT: 1. Acute cholecystitis 2. Incarcerated incisional hernia PLAN: -Further recommendations forthcoming per surgeon -Continue IV antibiotics -Continue IV fluids -Keep patient nothing by mouth -Follow up on gallbladder ultrasound results Physician Care Worker note has been reviewed by physician. Signing provider agrees with the documented findings, assessment, and plan of care. Objective - Vital Signs Vital signs: Vital Signs Temp 102.3 F H 02/01/21 08:06 Pulse 116 H 02/01/21 08:42 Resp 18 02/01/21 08:06 BP 89/52 02/01/21 08:06 Pulse Ox 93 L 09/16/21 08:06 Intake & Output 01/31/21 02/01/21 02/01/21 18:59 06:59 18:59 Intake Total 1040 49.449 118 Output Total 2200 375 Balance -1160 -325.551 118 Weight 107.9 kg Intake: Intake, IV Titration 49.449 Amount Insulin Regular 100 unit 49.449 In Sodium Chloride 0.9% 100 ml @ Titrate IV .Q0M [facility] Rx#:[id number] Oral 1040 118 Output: Urine 2200 375 Other: Voiding Method Toilet Toilet Urinal Urinal # Bowel Movements 1 - Labs CBC & Chem 7: 02/01/21 06:14 02/01/21 06:14 Labs: Abnormal Lab Results - Last 24 Hours (Table) 01/31/21 01/31/21 01/31/21 Range/Units 07:41 12:17 12:22 WBC (3.8-10.6) k/uL RBC (4.30-5.90) m/uL Hct (39.0-53.0) % Neutrophils # (1.3-7.7) k/uL Lymphocytes # (1.0-4.8) k/uL Sodium (137-145) mmol/L Carbon Dioxide (22-30) mmol/L BUN (9-20) mg/dL Glucose (74-99) mg/dL POC Glucose (mg/dL) 447 H 442 H (75-99) mg/dL Total Protein (6.3-8.2) g/dL Albumin (3.5-5.0) g/dL Procalcitonin 5.25 H (0.02-0.09) ng/mL 01/31/21 01/31/21 01/31/21 Range/Units 17:02 17:58 19:05 WBC (3.8-10.6) k/uL RBC (4.30-5.90) m/uL Hct (39.0-53.0) % Neutrophils # (1.3-7.7) k/uL Lymphocytes # (1.0-4.8) k/uL Sodium (137-145) mmol/L Carbon Dioxide (22-30) mmol/L BUN (9-20) mg/dL Glucose (74-99) mg/dL POC Glucose (mg/dL) 320 H 275 H 151 H (75-99) mg/dL Total Protein (6.3-8.2) g/dL Albumin (3.5-5.0) g/dL Procalcitonin (0.02-0.09) ng/mL 01/31/21 01/31/21 01/31/21 Range/Units 20:01 20:40 21:30 WBC (3.8-10.6) k/uL RBC (4.30-5.90) m/uL Hct (39.0-53.0) % Neutrophils # (1.3-7.7) k/uL Lymphocytes # (1.0-4.8) k/uL Sodium (137-145) mmol/L Carbon Dioxide (22-30) mmol/L BUN 34 H (9-20) mg/dL Glucose 138 H (74-99) mg/dL POC Glucose (mg/dL) 101 H 127 H (75-99) mg/dL Total Protein (6.3-8.2) g/dL Albumin (3.5-5.0) g/dL Procalcitonin (0.02-0.09) ng/mL 01/31/21 02/01/21 02/01/21 Range/Units 21:59 00:01 02:08 WBC (3.8-10.6) k/uL RBC (4.30-5.90) m/uL Hct (39.0-53.0) % Neutrophils # (1.3-7.7) k/uL Lymphocytes # (1.0-4.8) k/uL Sodium (137-145) mmol/L Carbon Dioxide (22-30) mmol/L BUN (9-20) mg/dL Glucose (74-99) mg/dL POC Glucose (mg/dL) 130 H 152 H 201 H (75-99) mg/dL Total Protein (6.3-8.2) g/dL Albumin (3.5-5.0) g/dL Procalcitonin (0.02-0.09) ng/mL 02/01/21 02/01/21 02/01/21 Range/Units 04:03 05:57 06:14 WBC 10.9 H (3.8-10.6) k/uL RBC 3.84 L (4.30-5.90) m/uL Hct 37.2 L (39.0-53.0) % Neutrophils # 9.2 H (1.3-7.7) k/uL Lymphocytes # 0.5 L (1.0-4.8) k/uL Sodium (137-145) mmol/L Carbon Dioxide (22-30) mmol/L BUN (9-20) mg/dL Glucose (74-99) mg/dL POC Glucose (mg/dL) 176 H 152 H (75-99) mg/dL Total Protein (6.3-8.2) g/dL Albumin (3.5-5.0) g/dL Procalcitonin (0.02-0.09) ng/mL 02/01/21 02/01/21 02/01/21 Range/Units 06:14 07:20 08:21 WBC (3.8-10.6) k/uL RBC (4.30-5.90) m/uL Hct (39.0-53.0) % Neutrophils # (1.3-7.7) k/uL Lymphocytes # (1.0-4.8) k/uL Sodium 133 L (137-145) mmol/L Carbon Dioxide 18 L (22-30) mmol/L BUN 46 H (9-20) mg/dL Glucose 143 H (74-99) mg/dL POC Glucose (mg/dL) 125 H 166 H (75-99) mg/dL Total Protein 5.8 L (6.3-8.2) g/dL Albumin 3.1 L (3.5-5.0) g/dL Procalcitonin (0.02-0.09) ng/mL Microbiology - Last 24 Hours (Table) 01/30/21 21:08 Blood Culture - Preliminary Blood No Growth after 24 hours 01/30/21 21:00 Blood Culture - Preliminary Blood No Growth after 24 hours <Jarett Batista - Last Filed: 02/01/21 12:37> Subjective As above. Patient known to our service from evaluation of hernia previously. Patient started having episodes of nausea and vomiting last night. Having high- grade fevers today. Repeat CAT scan and abdominal ultrasound obtained. Studies reviewed and definitely demonstrate inflammatory changes of the gallbladder. Patient is tender right upper quadrant although slightly less than expected. Clinical scenario discussed with the patient in detail. I also called his sister by phone. Recommend open cholecystectomy at this time given the patient's large midline scar with multiple fascial defects. Also anticipate significant abdominal adhesions given the previous surgery for his liver injury. Risks of bleeding, infection, bile leak, bile duct injury, retained common bile duct stone, respiratory failure, cardiac complications, hernia were reviewed. The patient understands and wishes to proceed. This will be scheduled for tomorrow morning. Objective - Vital Signs Vital signs: Vital Signs Temp 98.3 F 02/01/21 12:15 Pulse 92 02/01/21 12:15 Resp 16 02/01/21 12:15 BP 137/68 02/01/21 12:15 Pulse Ox 96 02/01/21 12:15 Intake & Output 01/31/21 02/01/21 02/01/21 18:59 06:59 18:59 Intake Total 1040 49.449 118 Output Total 2200 375 Balance -1160 -325.551 118 Weight 107.9 kg Intake: Intake, IV Titration 49.449 Amount Insulin Regular 100 unit 49.449 In Sodium Chloride 0.9% 100 ml @ Titrate IV .Q0M [facility] Rx#:[id number] Oral 1040 118 Output: Urine 2200 375 Other: Voiding Method Toilet Toilet Toilet Urinal Urinal Urinal # Bowel Movements 1 - Labs CBC & Chem 7: 02/01/21 06:14 02/01/21 06:14 Labs: Abnormal Lab Results - Last 24 Hours (Table) 01/31/21 01/31/21 01/31/21 Range/Units 17:02 17:58 19:05 WBC (3.8-10.6) k/uL RBC (4.30-5.90) m/uL Hct (39.0-53.0) % Neutrophils # (1.3-7.7) k/uL Lymphocytes # (1.0-4.8) k/uL Sodium (137-145) mmol/L Carbon Dioxide (22-30) mmol/L BUN (9-20) mg/dL Glucose (74-99) mg/dL POC Glucose (mg/dL) 320 H 275 H 151 H (75-99) mg/dL Total Protein (6.3-8.2) g/dL Albumin (3.5-5.0) g/dL Lipase (23-300) U/L 01/31/21 01/31/21 01/31/21 Range/Units 20:01 20:40 21:30 WBC (3.8-10.6) k/uL RBC (4.30-5.90) m/uL Hct (39.0-53.0) % Neutrophils # (1.3-7.7) k/uL Lymphocytes # (1.0-4.8) k/uL Sodium (137-145) mmol/L Carbon Dioxide (22-30) mmol/L BUN 34 H (9-20) mg/dL Glucose 138 H (74-99) mg/dL POC Glucose (mg/dL) 101 H 127 H (75-99) mg/dL Total Protein (6.3-8.2) g/dL Albumin (3.5-5.0) g/dL Lipase (23-300) U/L 01/31/21 02/01/21 02/01/21 Range/Units 21:59 00:01 02:08 WBC (3.8-10.6) k/uL RBC (4.30-5.90) m/uL Hct (39.0-53.0) % Neutrophils # (1.3-7.7) k/uL Lymphocytes # (1.0-4.8) k/uL Sodium (137-145) mmol/L Carbon Dioxide (22-30) mmol/L BUN (9-20) mg/dL Glucose (74-99) mg/dL POC Glucose (mg/dL) 130 H 152 H 201 H (75-99) mg/dL Total Protein (6.3-8.2) g/dL Albumin (3.5-5.0) g/dL Lipase (23-300) U/L 02/01/21 02/01/21 02/01/21 Range/Units 04:03 05:57 06:14 WBC 10.9 H (3.8-10.6) k/uL RBC 3.84 L (4.30-5.90) m/uL Hct 37.2 L (39.0-53.0) % Neutrophils # 9.2 H (1.3-7.7) k/uL Lymphocytes # 0.5 L (1.0-4.8) k/uL Sodium (137-145) mmol/L Carbon Dioxide (22-30) mmol/L BUN (9-20) mg/dL Glucose (74-99) mg/dL POC Glucose (mg/dL) 176 H 152 H (75-99) mg/dL Total Protein (6.3-8.2) g/dL Albumin (3.5-5.0) g/dL Lipase (23-300) U/L 02/01/21 02/01/21 02/01/21 Range/Units 06:14 06:14 07:20 WBC (3.8-10.6) k/uL RBC (4.30-5.90) m/uL Hct (39.0-53.0) % Neutrophils # (1.3-7.7) k/uL Lymphocytes # (1.0-4.8) k/uL Sodium 133 L (137-145) mmol/L Carbon Dioxide 18 L (22-30) mmol/L BUN 46 H (9-20) mg/dL Glucose 143 H (74-99) mg/dL POC Glucose (mg/dL) 125 H (75-99) mg/dL Total Protein 5.8 L (6.3-8.2) g/dL Albumin 3.1 L (3.5-5.0) g/dL Lipase 15 L (23-300) U/L 02/01/21 02/01/21 02/01/21 Range/Units 08:21 10:24 12:01 WBC (3.8-10.6) k/uL RBC (4.30-5.90) m/uL Hct (39.0-53.0) % Neutrophils # (1.3-7.7) k/uL Lymphocytes # (1.0-4.8) k/uL Sodium (137-145) mmol/L Carbon Dioxide (22-30) mmol/L BUN (9-20) mg/dL Glucose (74-99) mg/dL POC Glucose (mg/dL) 166 H 167 H 174 H (75-99) mg/dL Total Protein (6.3-8.2) g/dL Albumin (3.5-5.0) g/dL Lipase (23-300) U/L Microbiology - Last 24 Hours (Table) 01/30/21 21:08 Blood Culture - Preliminary Blood No Growth after 24 hours 01/30/21 21:00 Blood Culture - Preliminary Blood No Growth after 24 hours Assessment and Plan (1) Incarcerated incisional hernia Current Visit: Yes Status: Acute Code(s): K43.0 - INCISIONAL HERNIA WITH OBSTRUCTION, WITHOUT GANGRENE SNOMED Code(s): 238108923
--- NOTE | 2021-02-01 11:22 | US ---
EXAMINATION TYPE: US gallbladder DATE OF EXAM: 02/01/2021 COMPARISON: CT same day CLINICAL HISTORY: 60-year-old male right q pain, acute cholecystitis. RUQ pain TECHNIQUE: Multiple sonographic images of the right upper quadrant are obtained. FINDINGS: EXAM MEASUREMENTS: Liver Length: 19.8 cm Gallbladder Wall: 0.9 cm Right Kidney: 13.1 x 6.0 x 5.8 cm Pancreas: Obscured by bowel gas Liver: Enlarged in size. Attenuating. No focal lesion seen. Gallbladder: Enlarged in size. Thickened wall. Sludge seen. Stone visualized in neck region= 1.8 cm- unable to accurately determine mobile vs nonmobile. Fluid visualized adjacent to GB. Evidence for sonographic Ruiz's sign: neg CBD: Obscured by overlying bowel gas Right Kidney: No hydronephrosis or masses seen IMPRESSION: 1. Gallbladder wall thickening with surrounding fluid and a 1.8 cm stone. Findings concerning for acu te cholecystitis despite the negative sonographic Ruiz sign. Query any recent pain medication. Brandon mmend surgical evaluation. 2. Bile duct is obscured and not well assessed. 3. Mild hepatomegaly (19.8 cm). There may be mild fatty infiltration of the liver.
--- NOTE | 2021-02-01 11:22 | XR ---
EXAMINATION TYPE: XR chest 1V portable DATE OF EXAM: 01/31/2021 CLINICAL HISTORY: Difficulty breathing progress study. TECHNIQUE: Single AP portable upright view of the chest is obtained. COMPARISON: Chest x-ray from one day earlier and CTA chest 3 days earlier. FINDINGS: Background chronic emphysematous change seen better on CT. Cardiac silhouette size stable and enlarged. Low lung volumes redemonstrated without new focal airspace opacity, pleural effusion, o r pneumothorax. Slightly elevated left hemidiaphragm redemonstrated. Slight underlying scoliotic curv ature noted. IMPRESSION: Cardiomegaly and low lung volumes without new acute pulmonary process.
[2021-02-01] MEDS: INSULIN ASPART (NovoLOG) 100 UNIT/ML VIAL SQ SCH ×3 (11:54→20:27)
[2021-02-01] MEDS: FUROSEMIDE 20 MG TAB PO SCH (12:01)
[2021-02-01 12:07] LABS: Glucose,Whole Blood 174 mg/dL (75-99)
[2021-02-01] MEDS: PIPERACILLIN-TAZOBACTAM 3.375 GM in SODIUM CHLORIDE 0.9% 100 ML IVPB SCH ×3 (12:09→23:45)
--- NOTE | 2021-02-01 13:26 | P.PN ---
Subjective This is a 60-year-old male with a past medical history of hypertension, hyperlipidemia, type 2 diabetes, chronic nicotine dependence, sleep apnea, se izure disorder. He follows with Dr. Prescott in the office, last seen in 2018. He presented emergency department with chest pain. He also had mild elevated troponin consistent with NSTEMI. He underwent cardiac catheterization with Dr. Cuadra 01/28/21 which revealed nonobstructive coronary artery disease involving the left circumflex. Elevated left ventricular end-diastolic pressure 26- 30mmHg. CTA- negative for pulmonary embolism Echocardiogram revealed EF of 5055 percent, RV is moderately to severely enlarged, trace mitral regurgitation, mild tricuspid regurgitation 01/30 Overnight- patient was found to be in respiratory distress. His oxygenation saturations dropped 70s% along with cyanosis. He also noted to have fevers of Tmax 103.2F. He was tachycardic, using his accessory muscles. A team was called. Patient was given IV Lasix, placed on a non-rebreather, solumedrol, pepcid and benadryl due to possible reaction to Zosyn first dose received within 3 hours. ABG was performed. 01/31/21 Patient seen and examined at bedside, no acute distress. He cannot specifically recall the event that happened overnight. He does remember "seeing brother and father who have ". He does endorse some shortness of breath and new orthopnea. He denies any chest pain, lightheadedness, dizziness, palpitations. He states he slept well last night. He is lying flat in bed, breathing com fortably. Blood pressure 108/62, heart rate 90, afebrile, maintaining oxygen saturations on 2 L nasal cannula. He's currently maintained on amlodipine 5 mg daily, aspirin 81 mg daily, atorvastatin 40 mg daily, hydrochlorothiazide 50 mg daily, Imdur 60 mg nightly, losartan 100 mg daily, metoprolol tartrate 50 mg 3 times a day. He does endorse feeling diaphoretic overnight. 02/01/2021: Patient seen and examined at bedside, no acute distress. He does endorse right- sided upper abdominal pain with palpation. Denies chest pain, shoulder pain, shortness of breath, symptoms of orthopnea, palpitations. CT chest abdomen and pelvis revealed dilated gallbladder, progression of wall thickening and edema consistent with acute cholecystitis. Left sided abdominal wall ventral hernia containing incarcerated bowel without evidence of bowel obstruction. US gallbladder- gallbladder wall thickening, findings concerning for acute cholecystitis. Blood pressure this morning 89/52, heart rate 113, febrile temperature 102.3F, 93% on 2 L nasal cannula. Telemetry reviewed patient in sinus mechanism, he is occasionally tachycardic to 115. Laboratory data WBC 10.9, hemoglobin 13, platelets 182, sodium 133, potassium 4.0, BUN 46, serum creatinine 1.22, Mag 1.7, amylase 33, lipase 15 GENERAL: No acute distress, appears comfortable. NECK: Supple without JVD LUNGS: Breath sounds wheezing bilaterally to auscultation bilaterally. Respiration equal and unlabored. HEART: Regular rate and rhythm Systolic murmur at base, No rubs or gallops. S1 and S2 heard. ABDOMEN: Tenderness with palpation to the right upper abdomen EXTREMITIES: Normal range of motion, no edema. No clubbing or cyanosis. Periph eral pulses intact. SKIN: Right radial cath site clean dry intact no hematoma ASSESSMENT Non-obstructive coronary artery disease Chest pain Shortness of breath Fever Acute cholecystitis seen on CT scan Incarcerated hernia Acute hypoxic respiratory failure History of hypertension Hyperlipidemia Type 2 diabetes Chronic nicotine dependence Sleep apnea History of seizure disorder PLAN -Will start IV fluids -Continue current medical therapy amlodipine 5 mg daily, aspirin 81 mg daily, atorvastatin 40 mg daily, Imdur 60 mg nightly, losartan 100 mg daily, metoprolol tartrate 50 mg TID -Pulmonary following -Surgery consulted, possible surgical intervention planned for acute cholecystitis. -From a cardiology perspective, at this time benefit outweighs the risk of surgery. Patient has had extensive cardiac workup including cardiac catheterization and echocardiogram with results noted above. Patient may proceed with surgery with no additional cardiac testings or procedures. Nurse Practitioner note has been reviewed, I agree with a documented findings and plan of care. Patient was seen and examined. Objective - Vital Signs Vital signs: Vital Signs Temp 98.3 F 02/01/21 12:15 Pulse 92 02/01/21 12:15 Resp 16 02/01/21 12:15 BP 137/68 02/01/21 12:15 Pulse Ox 96 02/01/21 12:15 Intake & Output 01/31/21 02/01/21 02/01/21 18:59 06:59 18:59 Intake Total 1040 49.449 118 Output Total 2200 375 Balance -1160 -325.551 118 Weight 107.9 kg Intake: Intake, IV Titration 49.449 Amount Insulin Regular 100 unit 49.449 In Sodium Chloride 0.9% 100 ml @ Titrate IV .Q0M [facility] Rx#:[id number] Oral 1040 118 Output: Urine 2200 375 Other: Voiding Method Toilet Toilet Toilet Urinal Urinal Urinal # Bowel Movements 1 - Labs CBC & Chem 7: 02/01/21 06:14 02/01/21 06:14 Labs: Abnormal Lab Results - Last 24 Hours (Table) 01/31/21 01/31/21 01/31/21 Range/Units 17:02 17:58 19:05 WBC (3.8-10.6) k/uL RBC (4.30-5.90) m/uL Hct (39.0-53.0) % Neutrophils # (1.3-7.7) k/uL Lymphocytes # (1.0-4.8) k/uL Sodium (137-145) mmol/L Carbon Dioxide (22-30) mmol/L BUN (9-20) mg/dL Glucose (74-99) mg/dL POC Glucose (mg/dL) 320 H 275 H 151 H (75-99) mg/dL Total Protein (6.3-8.2) g/dL Albumin (3.5-5.0) g/dL Lipase (23-300) U/L 01/31/21 01/31/21 01/31/21 Range/Units 20:01 20:40 21:30 WBC (3.8-10.6) k/uL RBC (4.30-5.90) m/uL Hct (39.0-53.0) % Neutrophils # (1.3-7.7) k/uL Lymphocytes # (1.0-4.8) k/uL Sodium (137-145) mmol/L Carbon Dioxide (22-30) mmol/L BUN 34 H (9-20) mg/dL Glucose 138 H (74-99) mg/dL POC Glucose (mg/dL) 101 H 127 H (75-99) mg/dL Total Protein (6.3-8.2) g/dL Albumin (3.5-5.0) g/dL Lipase (23-300) U/L 01/31/21 02/01/21 02/01/21 Range/Units 21:59 00:01 02:08 WBC (3.8-10.6) k/uL RBC (4.30-5.90) m/uL Hct (39.0-53.0) % Neutrophils # (1.3-7.7) k/uL Lymphocytes # (1.0-4.8) k/uL Sodium (137-145) mmol/L Carbon Dioxide (22-30) mmol/L BUN (9-20) mg/dL Glucose (74-99) mg/dL POC Glucose (mg/dL) 130 H 152 H 201 H (75-99) mg/dL Total Protein (6.3-8.2) g/dL Albumin (3.5-5.0) g/dL Lipase (23-300) U/L 02/01/21 02/01/21 02/01/21 Range/Units 04:03 05:57 06:14 WBC 10.9 H (3.8-10.6) k/uL RBC 3.84 L (4.30-5.90) m/uL Hct 37.2 L (39.0-53.0) % Neutrophils # 9.2 H (1.3-7.7) k/uL Lymphocytes # 0.5 L (1.0-4.8) k/uL Sodium (137-145) mmol/L Carbon Dioxide (22-30) mmol/L BUN (9-20) mg/dL Glucose (74-99) mg/dL POC Glucose (mg/dL) 176 H 152 H (75-99) mg/dL Total Protein (6.3-8.2) g/dL Albumin (3.5-5.0) g/dL Lipase (23-300) U/L 02/01/21 02/01/21 02/01/21 Range/Units 06:14 06:14 07:20 WBC (3.8-10.6) k/uL RBC (4.30-5.90) m/uL Hct (39.0-53.0) % Neutrophils # (1.3-7.7) k/uL Lymphocytes # (1.0-4.8) k/uL Sodium 133 L (137-145) mmol/L Carbon Dioxide 18 L (22-30) mmol/L BUN 46 H (9-20) mg/dL Glucose 143 H (74-99) mg/dL POC Glucose (mg/dL) 125 H (75-99) mg/dL Total Protein 5.8 L (6.3-8.2) g/dL Albumin 3.1 L (3.5-5.0) g/dL Lipase 15 L (23-300) U/L 02/01/21 02/01/21 02/01/21 Range/Units 08: 10:24 12:01 WBC (3.8-10.6) k/uL RBC (4.30-5.90) m/uL Hct (39.0-53.0) % Neutrophils # (1.3-7.7) k/uL Lymphocytes # (1.0-4.8) k/uL Sodium (137-145) mmol/L Carbon Dioxide (22-30) mmol/L BUN (9-20) mg/dL Glucose (74-99) mg/dL POC Glucose (mg/dL) 166 H 167 H 174 H (75-99) mg/dL Total Protein (6.3-8.2) g/dL Albumin (3.5-5.0) g/dL Lipase (23-300) U/L Microbiology - Last 24 Hours (Table) 01/30/21 21:08 Blood Culture - Preliminary Blood No Growth after 24 hours 01/30/21 21:00 Blood Culture - Preliminary Blood No Growth after 24 hours
--- NOTE | 2021-02-01 13:39 | P.PN ---
Subjective Progress Note Date: 02/01/21 Principal diagnosis: Chest pain, acute exacerbation of COPD 60-year-old white male patient, with over [id number] smoking history, currently down to half a pack a day, does not follow with a lung specialist, he is not on any maintenance inhalers or breathing treatments, also has history of hypertension, hyperlipidemia, diabetes mellitus type 2, history of DVT, seizure disorder, history of closed head injury of unclear circumstances who came into the emergency department on 01/27/2021 for evaluation of chest pain, and diaphoresis. His EKG showed normal sinus rhythm. Patient follows with Dr. Pang for primary care services. His chest pain was central, nonradiating, a nd felt like squeezing discomfort. Had no nausea or vomiting, no fever or chills, denies any cough or phlegm production. Patient drinks about 1 beer a day 3 days a week, denies any use of illicit drugs. His history of DVT was from 3 years ago, currently not on any anticoagulation. On presentation his blood pressure was elevated, however his other vitals looked stable. No fever, his labs showed mild leukocytosis with a white count of 12.4, hemoglobin 14.5, platelet count of 254, INR of 0.9, sodium 134, depressed electrolytes were within normal limits, BUN is 14 creatinine 0.65, LFTs were within normal limits, his troponins were 0.071, 0.070, 0.056, proBNP was 332. Lipase was 30. CTA ch est was completed showing no evidence of pulmonary embolism, over there was pulmonary emphysema noted in the upper and lower lobes bilaterally. No acute lung disease. CT of the abdomen and pelvis with contrast was completed showing incarcerated ventral hernia containing transverse colon, no bowel obstruction, and there was clearing of the retroperitoneal fluid and fat stranding compared old exam. Sigmoid diverticulosis was unchanged. Patient underwent cardiac evaluation, and cardiac catheterization today on 01 29 2021 which showed minimal plaque involving the left circumflex, and elevated left ventricular end- diastolic pressure 26-30 mmHg. Patient was also seen by general surgery for incarcerated incisional hernia, with the recommendation for surgical intervention in the near future. In the meantime he is tolerating oral diet. We were asked to see the patient in evaluation possibility of pulmonary causes of his chest pain. Currently has no chest pain, he is sitting up on H2 bed, breathing comfortably, he is on room air, no cough, no chest discomfort, no phlegm production, no hemoptysis. Lung sounds are quite diminished bilaterally, no wheezing or rhonchi noted. Today's labs have been noted showing white blood cell, 12.2, hemoglobin of 13.3, sodium is 132, the rest of electrolytes were within normal limits, BUN of 7 creatinine 0.45. On 01/31/2021 patient seen in follow-up on selective care unit, this morning around 1 in the morning rapid response team was called for evaluation of sudden onset of difficulty in breathing. Patient he did have fevers, and elevated blood pressure. He was also desaturating to below 80% on room air, he was cyanotic, bronchospastic, and using accessory muscles of respirations. The was no leg edema or tenderness of calf muscles. Patient was suspected to have flash pulmonary edema with elevated blood pressure and he received a dose of IV Lasix he was placed on a nonrebreather mask, he was given a dose of IV Solu-Medrol, Pepcid and Benadryl for a suspected ALLERGIC reaction. Chest x-ray was completed and was unremarkable. Subsequently his breathing improved in response to diuretics, steroids, and oxygen. he was placed on a combination of azithromycin and Zosyn for empiric antibiotic coverage, he does have underlying COPD, which is active right now, he continues on Solu-Medrol 60 mg every 6 hours, he is on bronchodilators, and he continues on empiric antibiotics. Currently he is resting comfortably in bed, he continues on liters of oxygen his pulse ox is 94%, he is afebrile, his labs have been reviewed, his white blood cell count is 4.3, hemoglobin is 13.7, sodium is 133, potassium 3.9, chloride is 97, CO2 was 22, B1 is 22, creatinine 0.96. ProBNP was 593. Sounds still reveal diminished breath sounds with diffuse wheezing on forced exhale expiration maneuver. On 02/01/2021 patient seen in follow-up on [facility] care unit, he is complaining of right upper quadrant abdominal pain, tenderness with palpation, CT chest abdomen and pelvis has been completed showing possibility acute cholecystitis, denied any chest pain overnight, he is resting in bed, breathing comfortably, related to use of oxygen, pulse ox is 96%, no cough or congestion, no wheezing, his been afebrile overnight, slightly tachycardic, blood pressures been stable, follow-up chest x-ray today shows cardiomegaly and low lung volumes without new acute pulmonary process. Patient is on Zosyn, we added doxycycline yesterday, however in view of possibility of acute cholecystitis, we will stop The doxycycline and continue with IV Zosyn for now. Gallbladder ultrasound has been completed showing gallbladder wall thickening with surrounding fluid and a 1.8 cm tone, findings were concerning for acute cholecystitis, despite the negative sonographic signs. Gen. surgery has been consulted. Today's labs have been reviewed, white blood cell, is 10.9, hemoglobin is 13, sodium is 133, potassium is 4.0, chloride is 101, CO2 is 18, BUN is 46, creatinine is 1.2. LFTs were within normal limits, total bilirubin was 0.4, lipase was low at 15, and amylase was 33. Continues Symbicort, breathing treatments, and IV steroids at 60 mg every 6 hours. Objective - Vital Signs Vital signs: Vital Signs Temp 98.3 F 02/01/21 12:15 Pulse 92 02/01/21 12:15 Resp 16 02/01/21 12:15 BP 137/68 02/01/21 12:15 Pulse Ox 96 02/01/21 12:15 Intake & Output 01/31/21 02/01/21 02/01/21 18:59 06:59 18:59 Intake Total 1040 49.449 118 Output Total 2200 375 Balance -1160 -325.551 118 Weight 107.9 kg Intake: Intake, IV Titration 49.449 Amount Insulin Regular 100 unit 49.449 In Sodium Chloride 0.9% 100 ml @ Titrate IV .Q0M [facility] Rx#:[id number] Oral 1040 118 Output: Urine 2200 375 Other: Voiding Method Toilet Toilet Toilet Urinal Urinal Urinal # Bowel Movements 1 - Exam GENERAL EXAM: Alert, very pleasant, 60-year-old white male, sitting up in his to bed, he is currently on 2 L of oxygen with a pulse ox of 94%, comfortable in no apparent distress. HEAD: Normocephalic/atraumatic. EYES: Normal reaction of pupils, equal size. Conjunctiva pink, sclera white. NOSE: Clear with pink turbinates. THROAT: No erythema or exudates. NECK: No masses, no JVD, no thyroid enlargement, no adenopathy. CHEST: No chest wall deformity. Symmetrical expansion. LUNGS: Equal air entry with no crackles, wheeze, rhonchi or dullness. CVS: Regular rate and rhythm, normal S1 and S2, no gallops, no murmurs, no rubs ABDOMEN: Soft, nontender. No hepatosplenomegaly, normal bowel sounds, no guarding or rigidity. EXTREMITIES: No clubbing, no edema, no cyanosis, 2+ pulses and upper and lower extremities. MUSCULOSKELETAL: Muscle strength and tone normal. SPINE: No scoliosis or deformity SKIN: No rashes CENTRAL NERVOUS SYSTEM: Alert and oriented -3. No focal deficits, tone is normal in all 4 extremities. PSYCHIATRIC: Alert and oriented -3. Appropriate affect. Intact judgment and insight. - Labs CBC & Chem 7: 02/01/21 06:14 02/01/21 06:14 Labs: Abnormal Lab Results - Last 24 Hours (Table) 01/31/21 01/31/21 01/31/21 Range/Units 17:02 17:58 19:05 WBC (3.8-10.6) k/uL RBC (4.30-5.90) m/uL Hct (39.0-53.0) % Neutrophils # (1.3-7.7) k/uL Lymphocytes # (1.0-4.8) k/uL Sodium (137-145) mmol/L Carbon Dioxide (22-30) mmol/L BUN (9-20) mg/dL Glucose (74-99) mg/dL POC Glucose (mg/dL) 320 H 275 H 151 H (75-99) mg/dL Total Protein (6.3-8.2) g/dL Albumin (3.5-5.0) g/dL Lipase (23-300) U/L 01/31/21 01/31/21 01/31/21 Range/Units 20:01 20:40 21:30 WBC (3.8-10.6) k/uL RBC (4.30-5.90) m/uL Hct (39.0-53.0) % Neutrophils # (1.3-7.7) k/uL Lymphocytes # (1.0-4.8) k/uL Sodium (137-145) mmol/L Carbon Dioxide (22-30) mmol/L BUN 34 H (9-20) mg/dL Glucose 138 H (74-99) mg/dL POC Glucose (mg/dL) 101 H 127 H (75-99) mg/dL Total Protein (6.3-8.2) g/dL Albumin (3.5-5.0) g/dL Lipase (23-300) U/L 01/31/21 02/01/21 02/01/21 Range/Units 21:59 00:01 02:08 WBC (3.8-10.6) k/uL RBC (4.30-5.90) m/uL Hct (39.0-53.0) % Neutrophils # (1.3-7.7) k/uL Lymphocytes # (1.0-4.8) k/uL Sodium (137-145) mmol/L Carbon Dioxide (22-30) mmol/L BUN (9-20) mg/dL Glucose (74-99) mg/dL POC Glucose (mg/dL) 130 H 152 H 201 H (75-99) mg/dL Total Protein (6.3-8.2) g/dL Albumin (3.5-5.0) g/dL Lipase (23-300) U/L 02/01/21 02/01/21 02/01/21 Range/Units 04:03 05:57 06:14 WBC 10.9 H (3.8-10.6) k/uL RBC 3.84 L (4.30-5.90) m/uL Hct 37.2 L (39.0-53.0) % Neutrophils # 9.2 H (1.3-7.7) k/uL Lymphocytes # 0.5 L (1.0-4.8) k/uL Sodium (137-145) mmol/L Carbon Dioxide (22-30) mmol/L BUN (9-20) mg/dL Glucose (74-99) mg/dL POC Glucose (mg/dL) 176 H 152 H (75-99) mg/dL Total Protein (6.3-8.2) g/dL Albumin (3.5-5.0) g/dL Lipase (23-300) U/L 02/01/21 02/01/21 02/01/21 Range/Units 06:14 06:14 07:20 WBC (3.8-10.6) k/uL RBC (4.30-5.90) m/uL Hct (39.0-53.0) % Neutrophils # (1.3-7.7) k/uL Lymphocytes # (1.0-4.8) k/uL Sodium 133 L (137-145) mmol/L Carbon Dioxide 18 L (22-30) mmol/L BUN 46 H (9-20) mg/dL Glucose 143 H (74-99) mg/dL POC Glucose (mg/dL) 125 H (75-99) mg/dL Total Protein 5.8 L (6.3-8.2) g/dL Albumin 3.1 L (3.5-5.0) g/dL Lipase 15 L (23-300) U/L 02/01/21 02/01/21 02/01/21 Range/Units 08:21 10:24 12:01 WBC (3.8-10.6) k/uL RBC (4.30-5.90) m/uL Hct (39.0-53.0) % Neutrophils # (1.3-7.7) k/uL Lymphocytes # (1.0-4.8) k/uL Sodium (137-145) mmol/L Carbon Dioxide (22-30) mmol/L BUN (9-20) mg/dL Glucose (74-99) mg/dL POC Glucose (mg/dL) 166 H 167 H 174 H (75-99) mg/dL Total Protein (6.3-8.2) g/dL Albumin (3.5-5.0) g/dL Lipase (23-300) U/L Microbiology - Last 24 Hours (Table) 01/30/21 21:08 Blood Culture - Preliminary Blood No Growth after 24 hours 01/30/21 21:00 Blood Culture - Preliminary Blood No Growth after 24 hours Assessment and Plan Plan: Assessment: #1. Chest pain with mild troponin elevation, consistent with non-ST elevated myocardial infarction, status post heart catheterization on 01/29/2021 showing minimal plaque involving the left circumflex and elevated LVEDP of 26-30 mmHg. CTA chest ruled out possibility of pulmonary embolism #2. Acute exacerbation of COPD, with the sudden onset of shortness of breath wheezing, possibility of an ALLERGIC reaction is not completely excluded although it is not clear what may have precipitated the attack. Patient is currently on IV steroids, he was started on antibiotics in the form of Zosyn and azithromycin, and nebulized bronchodilators, he was also given a dose of IV Lasix. Currently improved breathing, chest x-ray is unremarkable #3. Evidence of pulmonary emphysema on CTA chest from extensive history of smoking #4. COPD, not active at this time, severity is not known, but not oxygen dependent at baseline #5. [id number] history of smoking, chronic and ongoing, currently down to half a pack a day #6. Diabetes mellitus type 2 #7. Hypertension #8. Hyperlipidemia #9. History of closed head injury #10. Seizure disorder #11. Incarcerated ventral hernia containing transverse colon, no bowel obstruction, patient will need surgery in the near future, general surgery is following #12. Acute cholecystitis, ultrasound of the gallbladder showed gallbladder wall thickening with surrounding fluid and 1.8 cm stone, neurosurgery has been consulted Plan: From pulmonary perspective patient is breathing easier today However in view of his acute cholecystitis we will discontinue doxycycline, and will continue with IV Zosyn Ultrasound of the gallbladder has been obtained and reviewed showing findings concerning for acute cholecystitis with gallbladder wall thickening and 1.8 cm stone Lipase and amylase have been reviewed, general surgery will be seeing the patient in regards to that Patient is less short of breath and bronchospastic on today's exam, IV steroids will be dropped down to 40 mg every 8 hours Continue nebulized bronchodilators Wean FiO2 Chest x-ray shows no acute pulmonary process I performed a history & physical examination of the patient and discussed their management with my nurse practitioner, Yahaira Morrison. I reviewed the nurse practitioner's note and agree with the documented findings and plan of care. Lung sounds are positive for diminished breath sounds throughout the lung figueredo. The findings and the impression was discussed with the patient. I attest to the documentation by the nurse practitioner. Time with Patient: Less than 30
[2021-02-01 14:31] LABS: Glucose,Whole Blood 200 mg/dL (75-99)
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
[2021-02-01 15:59] LABS: Glucose,Whole Blood 224 mg/dL (75-99)
[2021-02-01 16:52] LABS: Glucose,Whole Blood 259 mg/dL (75-99)
[2021-02-01 18:11] LABS: Hemoglobin A1C 6.4 % (4.0-6.0)
[2021-02-01 18:21] LABS: Glucose,Whole Blood 361 mg/dL (75-99)
[2021-02-01 19:49] LABS: Glucose,Whole Blood 298 mg/dL (75-99)
[2021-02-01] MEDS: INSULIN REGULAR 100 UNIT in SODIUM CHLORIDE 0.9% 100 ML IV SCH (20:21)
[2021-02-01] MEDS: methylPREDNISolone SOD SUCCI 40 MG/ML 1 ML VIAL IV SCH ×2 (20:28→23:45)
[2021-02-01] MEDS ORDERED: AZITHROMYCIN 500 MG TAB PO SCH (21:00)
[2021-02-01] MEDS: ISOSORBIDE MONONITRATE ER 60 MG TAB.ER.24H PO SCH (21:31)
[2021-02-01] MEDS: ATORVASTATIN 40 MG TAB PO SCH (21:31)
[2021-02-01 21:58] LABS: Glucose,Whole Blood 197 mg/dL (75-99)
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
[2021-02-01] MEDS: SODIUM CHLORIDE 0.9% 1,000 ML IV SCH (23:45)
[2021-02-02 00:20] LABS: Glucose,Whole Blood 157 mg/dL (75-99)
[2021-02-02] MEDS: SODIUM CHLORIDE 0.9% 1,000 ML IV SCH ×2 (00:42→16:32)
[2021-02-02 02:10] LABS: Glucose,Whole Blood 177 mg/dL (75-99)
[2021-02-02 04:13] LABS: Glucose,Whole Blood 204 mg/dL (75-99)
[2021-02-02] MEDS: INSULIN ASPART (NovoLOG) 100 UNIT/ML VIAL SQ SCH ×3 (05:58→18:38)
[2021-02-02 06:10] LABS: Glucose,Whole Blood 199 mg/dL (75-99)
[2021-02-02] MEDS: SYMBICORT 160-4.5 MCG INHALER INHALATION SCH ×2 (07:48→20:39)
[2021-02-02] MEDS: IPRATROPIUM-ALBUTEROL 3 ML NEB INHALATION SCH ×4 (07:48→20:37)
[2021-02-02 08:09] LABS: Glucose,Whole Blood 174 mg/dL (75-99)
[2021-02-02 09:04] LABS: ALT 46 U/L (4-49); AST 44 U/L (17-59); African American GFR (CKD) >90 (>60 ml/min/1.73 sqM); Alkaline Phosphatase 78 U/L (38-126); Anion Gap 8 mmol/L; Blood Urea Nitrogen 18 mg/dL (9-20); Calcium 8.6 mg/dL (8.4-10.2); Carbon Dioxide 24 mmol/L (22-30); Chloride 106 mmol/L (98-107); Glucose 168 mg/dL (74-99); Magnesium 2.3 mg/dL (1.6-2.3); Non-African American GFR(CKD) >90 (>60 ml/min/1.73 sqM); Potassium 3.6 mmol/L (3.5-5.1); Sodium 138 mmol/L (137-145); Total Bilirubin 0.3 mg/dL (0.2-1.3); Total Protein 5.6 g/dL (6.3-8.2)
[2021-02-02 09:17] LABS: Basophils % (A) 0 %; Eosinophils % (A) 0 %; HCT 35.8 % (39.0-53.0); HGB 12.1 gm/dL (13.0-17.5); Lymphocytes # (A) 0.7 k/uL (1.0-4.8); Lymphocytes % (A) 9 %; MCH 33.4 pg (25.0-35.0); MCHC 33.8 g/dL (31.0-37.0); MCV 98.7 fL (80.0-100.0); Mean Platelet Volume 7.5; Monocytes # (A) 0.5 k/uL (0-1.0); Monocytes % (A) 7 %; Neutrophils # (A) 5.7 k/uL (1.3-7.7); Neutrophils % (A) 81 %; Platelet Count 154 k/uL (150-450); RBC 3.63 m/uL (4.30-5.90); RDW 13.2 % (11.5-15.5)
[2021-02-02] MEDS: carBAMazepine 200 MG TAB PO SCH ×2 (09:29→20:28)
[2021-02-02] MEDS: ASPIRIN 81 MG PO SCH (09:30)
[2021-02-02] MEDS: FUROSEMIDE 20 MG TAB PO SCH (09:30)
[2021-02-02] MEDS: PANTOPRAZOLE 40 MG TABLET PO SCH (09:30)
[2021-02-02] MEDS: NON FORMULARY DRUG (Empagliflozin [Jardiance] 25 MG Tablet) PO SCH (09:31)
[2021-02-02] MEDS: methylPREDNISolone SOD SUCCI 40 MG/ML 1 ML VIAL IV SCH ×3 (09:33→23:59)
[2021-02-02] MEDS: HEPARIN SODIUM,PORCINE/PF 5,000 UNIT/0.5 ML SYRINGE SQ SCH ×2 (09:39→20:34)
[2021-02-02 10:00] LABS: Glucose,Whole Blood 166 mg/dL (75-99)
[2021-02-02] MEDS ORDERED: IV FLUID CONTINUATION 1,000 ML IV ONE (10:03)
[2021-02-02] MEDS ORDERED: ONDANSETRON 4 MG/2 ML VIAL IVP ONE ×2 (10:04→13:10)
[2021-02-02] MEDS ORDERED: HEPARIN SODIUM,PORCINE 5,000 UNIT/ML 1 ML VIAL SQ ONE (10:22)
--- NOTE | 2021-02-02 10:42 | P.PN ---
Progress Note - Text Progress Note Date: 02/02/21 Patient does seem to be doing somewhat better today. No fevers overnight. Blood pressure is stable. Still having right upper quadrant pain although he says it slightly improved. Labs show normal liver enzymes. White blood cell count is normal now as well. Covid test yesterday was normal. Patient is agreeable to proceed with open cholecystectomy. Apparently he was no code during this hospital stay. Patient is agreeable to switch his CODE STATUS to full code until he tells us otherwise.
[2021-02-02] MEDS ORDERED: LIDOCAINE 1% INJ 10MG/ML (20 ML MDV) ONE (10:44)
[2021-02-02] MEDS ORDERED: SUCCINYLCHOLINE CHLORIDE 100 MG/5 ML SYR IV ONE (10:44)
[2021-02-02] MEDS ORDERED: SUGAMMADEX SODIUM 500 MG/5 ML SDV IV ONE (10:44)
[2021-02-02] MEDS ORDERED: PROPOFOL 10 MG/ML 20 ML VIAL IV ONE (10:44)
[2021-02-02] MEDS ORDERED: ESMOLOL 100 MG/10 ML VIAL ONE (10:44)
[2021-02-02] MEDS ORDERED: fentaNYL (PF) 50 MCG/ML 2 ML AMP ONE (10:44)
[2021-02-02] MEDS ORDERED: ROCURONIUM 10 MG/ML (5 ML VIAL) IV ONE (10:44)
[2021-02-02 11:41] LABS: Glucose,Whole Blood 180 mg/dL (75-99)
[2021-02-02 12:54] LABS: Glucose,Whole Blood 193 mg/dL (75-99)
--- NOTE | 2021-02-02 12:59 | P.OP ---
Date of Procedure: 02/02/21 Procedure(s) Performed: PREOPERATIVE DIAGNOSIS: Acute cholecystitis POSTOPERATIVE DIAGNOSIS: Same PROCEDURE: Open cholecystectomy with lysis of adhesions SURGEON: Lynne EBL: 50 mL ANESTHESIA: General COMPLICATIONS: None OPERATIVE PROCEDURE: Patient place in the operative table in the supine position. He was placed under general anesthesia. Abdomen was prepped and draped sterilely. A right subcostal incision was made using the scalpel. The subcutaneous tissues and fascia were divided using electrocautery. The patient's gallbladder was significantly distended. It was easily palpable after anesthesia was given. The gallbladder was acutely inflamed. There were significant adhesions between the pericolonic fat and the liver and gallbladder. Careful dissection took place using both blunt dissection and electrocautery. We were able to mobilize the gallbladder from the top down at that point. Once we reached the infundibulum a stone was noted to be impacted in the infundibulum. This allowed us to actually palpate the cystic duct better. Further blunt dissection took place. Small vessels were clipped using the Ligaclip. Once we had the cystic duct visualized it was divided using 2 0 silk sutures. The gallbladder was then passed off. The area was irrigated. No bleeding was seen. Drain was placed in the gallbladder fossa exiting laterally. Fascia was closed in 2 layers using double-stranded #1 PDS sutures. Subcutaneous tissues closed using 3-0 Vicryl sutures. Skin closed using alma delia. Sterile dressings then applied. At the end of this procedure the sponge needle and extension counts were all correct. DISPOSITION: Stable to recovery room
[2021-02-02] MEDS ORDERED: HYDROmorphone 0.5 MG/0.5 ML SYRINGE IVP ONE (13:12)
[2021-02-02] MEDS ORDERED: ALBUTEROL NEBULIZED 2.5 MG/3 ML INHALATION ONE (13:16)
[2021-02-02] MEDS ORDERED: ALBUTEROL NEBULIZED 1.25 MG/3 ML INHALATION ONE (13:20)
[2021-02-02 14:01] VITALS: BMI 44.9
[2021-02-02] MEDS: PIPERACILLIN-TAZOBACTAM 3.375 GM in SODIUM CHLORIDE 0.9% 100 ML IVPB SCH ×3 (14:11→23:59)
--- NOTE | 2021-02-02 14:23 | P.PN ---
Subjective This is a 60-year-old male with a past medical history of hypertension, hyperlipidemia, type 2 diabetes, chronic nicotine dependence, sleep apnea, se izure disorder. He follows with Dr. Prescott in the office, last seen in 2018. He presented emergency department with chest pain. He also had mild elevated troponin consistent with NSTEMI. He underwent cardiac catheterization with Dr. Cuadra 01/28/21 which revealed nonobstructive coronary artery disease involving the left circumflex. Elevated left ventricular end-diastolic pressure 26- 30mmHg. CTA- negative for pulmonary embolism Echocardiogram revealed EF of 5055 percent, RV is moderately to severely enlarged, trace mitral regurgitation, mild tricuspid regurgitation 01/30 Overnight- patient was found to be in respiratory distress. His oxygenation saturations dropped 70s% along with cyanosis. He also noted to have fevers of Tmax 103.2F. He was tachycardic, using his accessory muscles. A team was called. Patient was given IV Lasix, placed on a non-rebreather, solumedrol, pepcid and benadryl due to possible reaction to Zosyn first dose received within 3 hours. ABG was performed. 01/31/21 Patient seen and examined at bedside, no acute distress. He cannot specifically recall the event that happened overnight. He does remember "seeing brother and father who have ". He does endorse some shortness of breath and new orthopnea. He denies any chest pain, lightheadedness, dizziness, palpitations. He states he slept well last night. He is lying flat in bed, breathing com fortably. Blood pressure 108/62, heart rate 90, afebrile, maintaining oxygen saturations on 2 L nasal cannula. He's currently maintained on amlodipine 5 mg daily, aspirin 81 mg daily, atorvastatin 40 mg daily, hydrochlorothiazide 50 mg daily, Imdur 60 mg nightly, losartan 100 mg daily, metoprolol tartrate 50 mg 3 times a day. He does endorse feeling diaphoretic overnight. 02/01/2021: Patient seen and examined at bedside, no acute distress. He does endorse right- sided upper abdominal pain with palpation. Denies chest pain, shoulder pain, shortness of breath, symptoms of orthopnea, palpitations. CT chest abdomen and pelvis revealed dilated gallbladder, progression of wall thickening and edema consistent with acute cholecystitis. Left sided abdominal wall ventral hernia containing incarcerated bowel without evidence of bowel obstruction. US gallbladder- gallbladder wall thickening, findings concerning for acute cholecystitis. Blood pressure this morning 89/52, heart rate 113, febrile temperature 102.3F, 93% on 2 L nasal cannula. Telemetry reviewed patient in sinus mechanism, he is occasionally tachycardic to 115. Patient started on IV fluids. Surgery consultation for possible surgical intervention for acute cholecystitis 02/02/21: Patient seen and examined at bedside this morning, no acute distress. She plans to go for an open cholecystectomy this morning. He denies any chest pain, shortness of breath, lightheadedness, dizziness, palpitations. Telemetry reviewed patient in sinus mechanism heart rate 6070s. Blood pressure 129/79, heart rate 62, afebrile, maintaining oxygen saturations on room air. Laboratory data reviewed WBC 7.0, hemoglobin 10.1, platelets 154, sodium 138, potassium 3.6, BUN 18, serum creatinine 0.4, magnesium 2.3. Patient currently maintained on amlodipine 5 mg daily, aspirin 81 mg daily, atorvastatin 40 mg daily, Imdur 60 mg nightly, Lasix by mouth 20 mg daily. GENERAL: No acute distress, appears comfortable. NECK: Supple without JVD LUNGS: Breath sounds wheezing bilaterally to auscultation bilaterally. Respiration equal and unlabored. HEART: Regular rate and rhythm Systolic murmur at base, No rubs or gallops. S1 and S2 heard. ABDOMEN: Tenderness with palpation to the right upper abdomen EXTREMITIES: Normal range of motion, no edema. No clubbing or cyanosis. Peripheral pulses intact. SKIN: Right radial cath site clean dry intact no hematoma ASSESSMENT Non-obstructive coronary artery disease Chest pain Shortness of breath Fever Acute cholecystitis seen on CT scan Incarcerated hernia Acute hypoxic respiratory failure History of hypertension Hyperlipidemia Type 2 diabetes Chronic nicotine dependence Sleep apnea History of seizure disorder PLAN -Plan for open cholecystectomy today -Recommend restarting patient's Losartan and metoprolol tartrate as the patient tolerates -Continue current medical therapy amlodipine 5 mg daily, aspirin 81 mg daily, atorvastatin 40 mg daily, Imdur 60 mg nightly -We will follow the patient as needed, please reach out with any questions or concerns. -Patient to follow up with Dr. Prescott within 1 week. Nurse Practitioner note has been reviewed, I agree with a documented findings and plan of care. Patient was seen and examined. Objective - Vital Signs Vital signs: Vital Signs Temp 97.6 F 02/02/21 12:49 Pulse 98 02/02/21 13:45 Resp 20 02/02/21 13:45 BP 146/72 02/02/21 13:45 Pulse Ox 97 02/02/21 13:45 Intake & Output 02/01/21 02/02/21 02/02/21 18:59 06:59 18:59 Intake Total 382.667 554.308 750 Output Total 950 450 325 Balance -567.333 104.308 425 Weight 107.9 kg 138.8 kg 138 kg Intake: IV 750 Intake, IV Titration 24.667 69.308 Amount Insulin Regular 100 unit 24.667 69.308 In Sodium Chloride 0.9% 100 ml @ Titrate IV .Q0M [facility] Rx#:[id number] Oral 358 485 Output: Urine 950 450 300 Estimated Blood Loss 25 Other: Voiding Method Toilet Toilet Urinal Urinal # Voids 1 # Bowel Movements 1 - Labs CBC & Chem 7: 02/02/21 08:03 02/02/21 08:03 Labs: Abnormal Lab Results - Last 24 Hours (Table) 02/01/21 02/01/21 02/01/21 Range/Units 06:14 14:19 15:57 RBC (4.30-5.90) m/uL Hgb (13.0-17.5) gm/dL Hct (39.0-53.0) % Lymphocytes # (1.0-4.8) k/uL Creatinine (0.66-1.25) mg/dL Glucose (74-99) mg/dL POC Glucose (mg/dL) 200 H 224 H (75-99) mg/dL Hemoglobin A1c 6.4 H (4.0-6.0) % Total Protein (6.3-8.2) g/dL Albumin (3.5-5.0) g/dL 02/01/21 02/01/21 02/01/21 Range/Units 16:50 18:19 19:47 RBC (4.30-5.90) m/uL Hgb (13.0-17.5) gm/dL Hct (39.0-53.0) % Lymphocytes # (1.0-4.8) k/uL Creatinine (0.66-1.25) mg/dL Glucose (74-99) mg/dL POC Glucose (mg/dL) 259 H 361 H 298 H (75-99) mg/dL Hemoglobin A1c (4.0-6.0) % Total Protein (6.3-8.2) g/dL Albumin (3.5-5.0) g/dL 02/01/21 02/02/21 02/02/21 Range/Units 21:58 00:19 02:07 RBC (4.30-5.90) m/uL Hgb (13.0-17.5) gm/dL Hct (39.0-53.0) % Lymphocytes # (1.0-4.8) k/uL Creatinine (0.66-1.25) mg/dL Glucose (74-99) mg/dL POC Glucose (mg/dL) 197 H 157 H 177 H (75-99) mg/dL Hemoglobin A1c (4.0-6.0) % Total Protein (6.3-8.2) g/dL Albumin (3.5-5.0) g/dL 02/02/21 02/02/21 02/02/21 Range/Units 04:11 06:09 08:03 RBC 3.63 L (4.30-5.90) m/uL Hgb 12.1 L (13.0-17.5) gm/dL Hct 35.8 L (39.0-53.0) % Lymphocytes # 0.7 L (1.0-4.8) k/uL Creatinine (0.66-1.25) mg/dL Glucose (74-99) mg/dL POC Glucose (mg/dL) 204 H 199 H (75-99) mg/dL Hemoglobin A1c (4.0-6.0) % Total Protein (6.3-8.2) g/dL Albumin (3.5-5.0) g/dL 02/02/21 02/02/21 02/02/21 Range/Units 08:03 08:06 09:59 RBC (4.30-5.90) m/uL Hgb (13.0-17.5) gm/dL Hct (39.0-53.0) % Lymphocytes # (1.0-4.8) k/uL Creatinine 0.49 L (0.66-1.25) mg/dL Glucose 168 H (74-99) mg/dL POC Glucose (mg/dL) 174 H 166 H (75-99) mg/dL Hemoglobin A1c (4.0-6.0) % Total Protein 5.6 L (6.3-8.2) g/dL Albumin 3.0 L (3.5-5.0) g/dL 02/02/21 02/02/21 Range/Units 11:39 12:52 RBC (4.30-5.90) m/uL Hgb (13.0-17.5) gm/dL Hct (39.0-53.0) % Lymphocytes # (1.0-4.8) k/uL Creatinine (0.66-1.25) mg/dL Glucose (74-99) mg/dL POC Glucose (mg/dL) 180 H 193 H (75-99) mg/dL Hemoglobin A1c (4.0-6.0) % Total Protein (6.3-8.2) g/dL Albumin (3.5-5.0) g/dL Microbiology - Last 24 Hours (Table) 01/31/21 21:30 Blood Culture - Preliminary Blood No Growth after 24 hours 01/30/21 21:08 Blood Culture - Preliminary Blood No Growth after 48 hours 01/30/21 21:00 Blood Culture - Preliminary Blood No Growth after 48 hours
[2021-02-02 14:33] LABS: Glucose,Whole Blood 223 mg/dL (75-99)
--- NOTE | 2021-02-02 16:03 | P.PN ---
Subjective Progress Note Date: 02/02/21 Principal diagnosis: Acute cholecystitis and COPD 60-year-old white male patient, with over [id number] smoking history, currently down to half a pack a day, does not follow with a lung specialist, he is not on any maintenance inhalers or breathing treatments, also has history of hypertension, hyperlipidemia, diabetes mellitus type 2, history of DVT, seizure disorder, history of closed head injury of unclear circumstances who came into the emergency department on 01/27/2021 for evaluation of chest pain, and diaphoresis. His EKG showed normal sinus rhythm. Patient follows with Dr. Pang for primary care services. His chest pain was central, nonradiating, and felt like squeezing discomfort. Had no nausea or vomiting, no fever or chills, denies any cough or phlegm production. Patient drinks about 1 beer a day 3 days a week, denies any use of illicit drugs. His history of DVT was from 3 years ago, currently not on any anticoagulation. On presentation his blood pressure was elevated, however his other vitals looked stable. No fever, his labs showed mild leukocytosis with a white count of 12.4, hemoglobin 14.5, platelet count of 254, INR of 0.9, sodium 134, depressed electrolytes were within normal limits, BUN is 14 creatinine 0.65, LFTs were within normal limits, his troponins were 0.071, 0.070, 0.056, proBNP was 332. Lipase was 30. CTA chest was completed showing no evidence of pulmonary embolism, over there was pulmonary emphysema noted in the upper and lower lobes bilaterally. No acute lung disease. CT of the abdomen and pelvis with contrast was completed showing incarcerated ventral hernia containing transverse colon, no bowel obstruction, and there was clearing of the retroperitoneal fluid and fat stranding compared old exam. Sigmoid diverticulosis was unchanged. Patient underwent cardiac evaluation, and cardiac catheterization today on 01 29 2021 which showed minimal plaque involving the left circumflex, and elevated left ventricular end- diastolic pressure 26-30 mmHg. Patient was also seen by general surgery for incarcerated incisional hernia, with the recommendation for surgical intervention in the near future. In the meantime he is tolerating oral diet. We were asked to see the patient in evaluation possibility of pulmonary causes of his chest pain. Currently has no chest pain, he is sitting up on H2 bed, breathing comfortably, he is on room air, no cough, no chest discomfort, no phlegm production, no hemoptysis. Lung sounds are quite diminished bilaterally, no wheezing or rhonchi noted. Today's labs have been noted showing white blood cell, 12.2, hemoglobin of 13.3, sodium is 132, the rest of electrolytes were within normal limits, BUN of 7 creatinine 0.45. On 01/31/2021 patient seen in follow-up on [facility], this morning around 1 in the morning rapid response team was called for evaluation of sudden onset of difficulty in breathing. Patient he did have fevers, and elevated blood pressure. He was also desaturating to below 80% on room air, he was cyanotic, bronchospastic, and using accessory muscles of respirations. The was no leg edema or tenderness of calf muscles. Patient was suspected to have flash pulmonary edema with elevated blood pressure and he received a dose of IV Lasix he was placed on a nonrebreather mask, he was given a dose of IV Solu-Medrol, Pepcid and Benadryl for a suspected ALLERGIC reaction. Chest x-ray was completed and was unremarkable. Subsequently his breathing improved in response to diuretics, steroids, and oxygen. he was placed on a combination of azithromycin and Zosyn for empiric antibiotic coverage, he does have underlying COPD, which is active right now, he continues on Solu-Medrol 60 mg every 6 hours, he is on bronchodilators, and he continues on empiric antibiotics. Currently he is resting comfortably in bed, he continues on liters of oxygen his pulse ox is 94%, he is afebrile, his labs have been reviewed, his white blood ce ll count is 4.3, hemoglobin is 13.7, sodium is 133, potassium 3.9, chloride is 97, CO2 was 22, B1 is 22, creatinine 0.96. ProBNP was 593. Sounds still reveal diminished breath sounds with diffuse wheezing on forced exhale expiration maneuver. On 02/01/2021 patient seen in follow-up on [facility], he is complaining of right upper quadrant abdominal pain, tenderness with palpation, CT chest abdomen and pelvis has been completed showing possibility acute cholecystitis, denied any chest pain overnight, he is resting in bed, breathing comfortably, related to use of oxygen, pulse ox is 96%, no cough or congestion, no wheezing, his been afebrile overnight, slightly tachycardic, blood pressures been stable, follow-up chest x-ray today shows cardiomegaly and low lung volumes without new acute pulmonary process. Patient is on Zosyn, we added doxycycline yesterday, however in view of possibility of acute cholecystitis, we will stop The doxycycline and continue with IV Zosyn for now. Gallbladder ultrasound has been completed showing gallbladder wall thickening with surrounding fluid and a 1.8 cm tone, findings were concerning for acute cholecystitis, despite the negative sonographic signs. Gen. surgery has been consulted. Today's labs have been reviewed, white blood cell, is 10.9, hemoglobin is 13, sodium is 133, potassium is 4.0, chloride is 101, CO2 is 18, BUN is 46, creatinine is 1.2. LFTs were within normal limits, total bilirubin was 0.4, lipase was low at 15, and amylase was 33. Continues Symbicort, breathing treatments, and IV steroids at 60 mg every 6 hours. Patient was reevaluated today on 02/02/2021, patient underwent open cholecystectomy with lysis of adhesions today, this was done by Dr. leslie, patient is back on his bed, patient is doing great, asymptomatic. Minimal abdominal discomfort. No cough no wheezing no shortness of breath. Patient is afebrile, blood pressure is 140/69, he is on 2 L and O2 sats is 97%. WBC count today is 7 hemoglobin is 12 electrolytes are normal renal profile is normal Objective - Vital Signs Vital signs: Vital Signs Temp 98.1 F 02/02/21 14:30 Pulse 86 02/02/21 15:00 Resp 18 02/02/21 15:00 BP 140/69 02/02/21 15:00 Pulse Ox 97 02/02/21 15:00 Intake & Output 02/01/21 02/02/21 02/02/21 18:59 06:59 18:59 Intake Total 382.667 554.308 800 Output Total 950 450 325 Balance -567.333 104.308 475 Weight 107.9 kg 138.8 kg 138 kg Intake: IV 800 Intake, IV Titration 24.667 69.308 Amount Insulin Regular 100 unit 24.667 69.308 In Sodium Chloride 0.9% 100 ml @ Titrate IV .Q0M [facility] Rx#:[id number] Oral 358 485 Output: Urine 950 450 300 Estimated Blood Loss 25 Other: Voiding Method Toilet Toilet Urinal Urinal # Voids 1 # Bowel Movements 1 - Exam GENERAL EXAM: Revealed a 60-year-old white male in no distress. HEAD: Normocephalic/atraumatic. HEENT: PERRLA, EOMI, neck, scar no neck masses no JVD. CHEST: No chest wall deformity. Symmetrical expansion. LUNGS: Equal air entry with no crackles, wheeze, rhonchi or dullness. CVS: Regular rate and rhythm, normal S1 and S2, no gallops, no murmurs, no rubs ABDOMEN: Soft, postsurgical, slightly tender, no guarding. EXTREMITIES: No clubbing, no edema, no cyanosis, 2+ pulses and upper and lower extremities. MUSCULOSKELETAL: Muscle strength and tone normal. SKIN: No rashes CENTRAL NERVOUS SYSTEM: Alert and oriented -3. No gross focal deficits. PSYCHIATRIC: Normal mood, affect and normal mental status examination. - Labs CBC & Chem 7: 02/02/21 08:03 02/02/21 08:03 Labs: Abnormal Lab Results - Last 24 Hours (Table) 02/01/21 02/01/21 02/01/21 Range/Units 06:14 15:57 16:50 RBC (4.30-5.90) m/uL Hgb (13.0-17.5) gm/dL Hct (39.0-53.0) % Lymphocytes # (1.0-4.8) k/uL Creatinine (0.66-1.25) mg/dL Glucose (74-99) mg/dL POC Glucose (mg/dL) 224 H 259 H (75-99) mg/dL Hemoglobin A1c 6.4 H (4.0-6.0) % Total Protein (6.3-8.2) g/dL Albumin (3.5-5.0) g/dL 02/01/21 02/01/21 02/01/21 Range/Units 18:19 19:47 21:58 RBC (4.30-5.90) m/uL Hgb (13.0-17.5) gm/dL Hct (39.0-53.0) % Lymphocytes # (1.0-4.8) k/uL Creatinine (0.66-1.25) mg/dL Glucose (74-99) mg/dL POC Glucose (mg/dL) 361 H 298 H 197 H (75-99) mg/dL Hemoglobin A1c (4.0-6.0) % Total Protein (6.3-8.2) g/dL Albumin (3.5-5.0) g/dL 02/02/21 02/02/21 02/02/21 Range/Units 00:19 02:07 04:11 RBC (4.30-5.90) m/uL Hgb (13.0-17.5) gm/dL Hct (39.0-53.0) % Lymphocytes # (1.0-4.8) k/uL Creatinine (0.66-1.25) mg/dL Glucose (74-99) mg/dL POC Glucose (mg/dL) 157 H 177 H 204 H (75-99) mg/dL Hemoglobin A1c (4.0-6.0) % Total Protein (6.3-8.2) g/dL Albumin (3.5-5.0) g/dL 02/02/21 02/02/21 02/02/21 Range/Units 06:09 08:03 08:03 RBC 3.63 L (4.30-5.90) m/uL Hgb 12.1 L (13.0-17.5) gm/dL Hct 35.8 L (39.0-53.0) % Lymphocytes # 0.7 L (1.0-4.8) k/uL Creatinine 0.49 L (0.66-1.25) mg/dL Glucose 168 H (74-99) mg/dL POC Glucose (mg/dL) 199 H (75-99) mg/dL Hemoglobin A1c (4.0-6.0) % Total Protein 5.6 L (6.3-8.2) g/dL Albumin 3.0 L (3.5-5.0) g/dL 02/02/21 02/02/21 02/02/21 Range/Units 08:06 09:59 11:39 RBC (4.30-5.90) m/uL Hgb (13.0-17.5) gm/dL Hct (39.0-53.0) % Lymphocytes # (1.0-4.8) k/uL Creatinine (0.66-1.25) mg/dL Glucose (74-99) mg/dL POC Glucose (mg/dL) 174 H 166 H 180 H (75-99) mg/dL Hemoglobin A1c (4.0-6.0) % Total Protein (6.3-8.2) g/dL Albumin (3.5-5.0) g/dL 02/02/21 02/02/21 Range/Units 12:52 14:31 RBC (4.30-5.90) m/uL Hgb (13.0-17.5) gm/dL Hct (39.0-53.0) % Lymphocytes # (1.0-4.8) k/uL Creatinine (0.66-1.25) mg/dL Glucose (74-99) mg/dL POC Glucose (mg/dL) 193 H 223 H (75-99) mg/dL Hemoglobin A1c (4.0-6.0) % Total Protein (6.3-8.2) g/dL Albumin (3.5-5.0) g/dL Microbiology - Last 24 Hours (Table) 01/31/21 21:30 Blood Culture - Preliminary Blood No Growth after 24 hours 01/30/21 21:08 Blood Culture - Preliminary Blood No Growth after 48 hours 01/30/21 21:00 Blood Culture - Preliminary Blood No Growth after 48 hours Assessment and Plan Assessment: #1. Acute cholecystitis. Status post open cholecystectomy on 02/02/2021. #2. Acute exacerbation of COPD, with the sudden onset of shortness of breath wheezing, possibility of an ALLERGIC reaction is not completely excluded although it is not clear what may have precipitated the attack. Patient is currently on IV steroids, he was started on antibiotics in the form of Zosyn and azithromycin, and nebulized bronchodilators, he was also given a dose of IV Lasix. Currently improved breathing, chest x-ray is unremarkable #3. Evidence of pulmonary emphysema on CTA chest from extensive history of smoking #4. COPD, not active at this time, severity is not known, but not oxygen dependent at baseline #5. [id number] history of smoking, chronic and ongoing, currently down to half a pack a day #6. Diabetes mellitus type 2 #7. Hypertension #8. Hyperlipidemia #9. History of closed head injury #10. Seizure disorder #11. Incarcerated ventral hernia containing transverse colon, no bowel obstruction, patient will need surgery in the near future, general surgery is following Recommendation: Continue present treatment plan including bronchodilators, Continue antibiotics. Patient is on Zosyn. Continue incentive spirometry. Early ambulation. We will continue to follow. Time with Patient: Less than 30
[2021-02-02 16:14] LABS: Glucose,Whole Blood 209 mg/dL (75-99)
[2021-02-02 17:49] LABS: Glucose,Whole Blood 200 mg/dL (75-99)
[2021-02-02 20:12] LABS: Glucose,Whole Blood 213 mg/dL (75-99)
[2021-02-02] MEDS: INSULIN REGULAR 100 UNIT in SODIUM CHLORIDE 0.9% 100 ML IV SCH (20:13)
[2021-02-02] MEDS: ISOSORBIDE MONONITRATE ER 60 MG TAB.ER.24H PO SCH (20:28)
[2021-02-02] MEDS: DOCUSATE 100 MG CAP PO SCH (20:29)
[2021-02-02] MEDS: ATORVASTATIN 40 MG TAB PO SCH (20:29)
[2021-02-02] MEDS: HYDROcodone/APAP 5-325MG 1 EACH TAB PO PRN (20:30)
[2021-02-02 22:15] LABS: Glucose,Whole Blood 228 mg/dL (75-99)
[2021-02-03 00:15] LABS: Glucose,Whole Blood 191 mg/dL (75-99)
[2021-02-03 02:01] LABS: Glucose,Whole Blood 195 mg/dL (75-99)
[2021-02-03 04:01] LABS: Glucose,Whole Blood 235 mg/dL (75-99)
--- NOTE | 2021-02-03 05:34 | PN ---
PROGRESS NOTE DATE OF SERVICE: 02/02/2021 REASON FOR FOLLOWUP: Fever and acute cholecystitis. INTERVAL HISTORY: Patient was taken to the OR this morning. The patient is status post cholecystectomy, tolerated the procedure. Denies having any chest pain, shortness of breath or cough. Abdominal pain is currently controlled. No vomiting or diarrhea. PHYSICAL EXAMINATION: Blood pressure 196/100 with a pulse of 85, temperature 98.2. He is 96% on 2 L nasal cannula. General description is a middle-aged male lying in bed in no distress. Respiratory system: Unlabored breathing, clear to auscultation anteriorly. Heart S1, S2. Regular rate and rhythm. Abdomen soft, no tenderness. LABS: Hemoglobin is 12 with white count 7.0. BUN of 18, creatinine 0.49. Electrolytes have been normal. DIAGNOSTIC IMPRESSION/PLAN: Patient with fever, source is cholecystitis, status post cholecystectomy. Patient is covered with Zosyn to continue and monitor clinical course closely. MMODL / IJN: [id number] /
[2021-02-03 06:10] LABS: Glucose,Whole Blood 205 mg/dL (75-99)
[2021-02-03] MEDS: INSULIN ASPART (NovoLOG) 100 UNIT/ML VIAL SQ SCH ×3 (06:10→17:26)
[2021-02-03] MEDS: HYDROmorphone 1 MG/ML 1 ML SYRINGE IVP PRN (06:41)
[2021-02-03] MEDS: SYMBICORT 160-4.5 MCG INHALER INHALATION SCH ×2 (08:16→19:17)
[2021-02-03] MEDS: IPRATROPIUM-ALBUTEROL 3 ML NEB INHALATION SCH ×4 (08:16→19:16)
[2021-02-03 08:19] LABS: Glucose,Whole Blood 206 mg/dL (75-99)
[2021-02-03 09:28] LABS: ALT 34 U/L (4-49); AST 32 U/L (17-59); African American GFR (CKD) >90 (>60 ml/min/1.73 sqM); Albumin 2.8 g/dL (3.5-5.0); Alkaline Phosphatase 64 U/L (38-126); Anion Gap 4 mmol/L; Blood Urea Nitrogen 12 mg/dL (9-20); Calcium 8.4 mg/dL (8.4-10.2); Carbon Dioxide 28 mmol/L (22-30); Chloride 104 mmol/L (98-107); Glucose 198 mg/dL (74-99); Non-African American GFR(CKD) >90 (>60 ml/min/1.73 sqM); Potassium 3.7 mmol/L (3.5-5.1); Sodium 136 mmol/L (137-145); Total Bilirubin 0.3 mg/dL (0.2-1.3); Total Protein 5.4 g/dL (6.3-8.2)
[2021-02-03 09:38] LABS: Basophils % (A) 0 %; Eosinophils # (A) 0.1 k/uL (0-0.7); Eosinophils % (A) 1 %; HCT 34.3 % (39.0-53.0); HGB 11.7 gm/dL (13.0-17.5); Lymphocytes # (A) 0.7 k/uL (1.0-4.8); Lymphocytes % (A) 11 %; MCH 33.4 pg (25.0-35.0); MCHC 34.2 g/dL (31.0-37.0); MCV 97.7 fL (80.0-100.0); Mean Platelet Volume 7.5; Monocytes # (A) 0.5 k/uL (0-1.0); Monocytes % (A) 7 %; Neutrophils # (A) 5.4 k/uL (1.3-7.7); Neutrophils % (A) 80 %; Platelet Count 161 k/uL (150-450); RBC 3.51 m/uL (4.30-5.90); RDW 13.4 % (11.5-15.5); WBC 6.7 k/uL (3.8-10.6)
[2021-02-03] MEDS: methylPREDNISolone SOD SUCCI 40 MG/ML 1 ML VIAL IV SCH ×3 (09:40→23:23)
[2021-02-03] MEDS: ASPIRIN 81 MG PO SCH (09:40)
[2021-02-03] MEDS: DOCUSATE 100 MG CAP PO SCH ×2 (09:40→19:39)
[2021-02-03] MEDS: PANTOPRAZOLE 40 MG TABLET PO SCH (09:40)
[2021-02-03] MEDS: carBAMazepine 200 MG TAB PO SCH ×2 (09:40→19:40)
[2021-02-03] MEDS: HEPARIN SODIUM,PORCINE/PF 5,000 UNIT/0.5 ML SYRINGE SQ SCH ×2 (09:40→19:40)
[2021-02-03] MEDS: FUROSEMIDE 20 MG TAB PO SCH (09:40)
[2021-02-03] MEDS: NON FORMULARY DRUG (Empagliflozin [Jardiance] 25 MG Tablet) PO SCH (09:41)
[2021-02-03] MEDS: SODIUM CHLORIDE 0.9% 1,000 ML IV SCH ×2 (09:41→12:46)
[2021-02-03] MEDS: PIPERACILLIN-TAZOBACTAM 3.375 GM in SODIUM CHLORIDE 0.9% 100 ML IVPB SCH ×3 (09:41→23:23)
[2021-02-03 10:04] LABS: Glucose,Whole Blood 192 mg/dL (75-99)
--- NOTE | 2021-02-03 11:37 | P.PN ---
Progress Note - Text Progress Note Date: 02/03/21 Patient's postoperative day 1 from open cholecystectomy. He is doing quite well. He has some complaints of incisional pain. On exam vital signs are stable. Abdomen soft. Status post open cholestatic. Continue supportive care.
[2021-02-03 11:58] LABS: Glucose,Whole Blood 193 mg/dL (75-99)
--- NOTE | 2021-02-03 12:30 | P.PN ---
Subjective Progress Note Date: 02/03/21 Principal diagnosis: Chest pain, acute exacerbation of COPD 60-year-old white male patient, with over [id number] smoking history, currently down to half a pack a day, does not follow with a lung specialist, he is not on any maintenance inhalers or breathing treatments, also has history of hypertension, hyperlipidemia, diabetes mellitus type 2, history of DVT, seizure disorder, history of closed head injury of unclear circumstances who came into the emergency department on 01/27/2021 for evaluation of chest pain, and diaphoresis. His EKG showed normal sinus rhythm. Patient follows with Dr. Pang for primary care services. His chest pain was central, nonradiating, a nd felt like squeezing discomfort. Had no nausea or vomiting, no fever or chills, denies any cough or phlegm production. Patient drinks about 1 beer a day 3 days a week, denies any use of illicit drugs. His history of DVT was from 3 years ago, currently not on any anticoagulation. On presentation his blood pressure was elevated, however his other vitals looked stable. No fever, his labs showed mild leukocytosis with a white count of 12.4, hemoglobin 14.5, platelet count of 254, INR of 0.9, sodium 134, depressed electrolytes were within normal limits, BUN is 14 creatinine 0.65, LFTs were within normal limits, his troponins were 0.071, 0.070, 0.056, proBNP was 332. Lipase was 30. CTA ch est was completed showing no evidence of pulmonary embolism, over there was pulmonary emphysema noted in the upper and lower lobes bilaterally. No acute lung disease. CT of the abdomen and pelvis with contrast was completed showing incarcerated ventral hernia containing transverse colon, no bowel obstruction, and there was clearing of the retroperitoneal fluid and fat stranding compared old exam. Sigmoid diverticulosis was unchanged. Patient underwent cardiac evaluation, and cardiac catheterization today on 01 29 2021 which showed minimal plaque involving the left circumflex, and elevated left ventricular end- diastolic pressure 26-30 mmHg. Patient was also seen by general surgery for incarcerated incisional hernia, with the recommendation for surgical intervention in the near future. In the meantime he is tolerating oral diet. We were asked to see the patient in evaluation possibility of pulmonary causes of his chest pain. Currently has no chest pain, he is sitting up on H2 bed, breathing comfortably, he is on room air, no cough, no chest discomfort, no phlegm production, no hemoptysis. Lung sounds are quite diminished bilaterally, no wheezing or rhonchi noted. Today's labs have been noted showing white blood cell, 12.2, hemoglobin of 13.3, sodium is 132, the rest of electrolytes were within normal limits, BUN of 7 creatinine 0.45. On 01/31/2021 patient seen in follow-up on selective care unit, this morning around 1 in the morning rapid response team was called for evaluation of sudden onset of difficulty in breathing. Patient he did have fevers, and elevated blood pressure. He was also desaturating to below 80% on room air, he was cyanotic, bronchospastic, and using accessory muscles of respirations. The was no leg edema or tenderness of calf muscles. Patient was suspected to have flash pulmonary edema with elevated blood pressure and he received a dose of IV Lasix he was placed on a nonrebreather mask, he was given a dose of IV Solu-Medrol, Pepcid and Benadryl for a suspected ALLERGIC reaction. Chest x-ray was completed and was unremarkable. Subsequently his breathing improved in response to diuretics, steroids, and oxygen. he was placed on a combination of azithromycin and Zosyn for empiric antibiotic coverage, he does have underlying COPD, which is active right now, he continues on Solu-Medrol 60 mg every 6 hours, he is on bronchodilators, and he continues on empiric antibiotics. Currently he is resting comfortably in bed, he continues on liters of oxygen his pulse ox is 94%, he is afebrile, his labs have been reviewed, his white blood cell count is 4.3, hemoglobin is 13.7, sodium is 133, potassium 3.9, chloride is 97, CO2 was 22, B1 is 22, creatinine 0.96. ProBNP was 593. Sounds still reveal diminished breath sounds with diffuse wheezing on forced exhale expiration maneuver. On 02/01/2021 patient seen in follow-up on [facility] care unit, he is complaining of right upper quadrant abdominal pain, tenderness with palpation, CT chest abdomen and pelvis has been completed showing possibility acute cholecystitis, denied any chest pain overnight, he is resting in bed, breathing comfortably, related to use of oxygen, pulse ox is 96%, no cough or congestion, no wheezing, his been afebrile overnight, slightly tachycardic, blood pressures been stable, follow-up chest x-ray today shows cardiomegaly and low lung volumes without new acute pulmonary process. Patient is on Zosyn, we added doxycycline yesterday, however in view of possibility of acute cholecystitis, we will stop The doxycycline and continue with IV Zosyn for now. Gallbladder ultrasound has been completed showing gallbladder wall thickening with surrounding fluid and a 1.8 cm tone, findings were concerning for acute cholecystitis, despite the negative sonographic signs. Gen. surgery has been consulted. Today's labs have been reviewed, white blood cell, is 10.9, hemoglobin is 13, sodium is 133, potassium is 4.0, chloride is 101, CO2 is 18, BUN is 46, creatinine is 1.2. LFTs were within normal limits, total bilirubin was 0.4, lipase was low at 15, and amylase was 33. Continues Symbicort, breathing treatments, and IV steroids at 60 mg every 6 hours. On 02/03/2021 is seen in follow-up on selective care unit, he is postoperative day #1, status post open cholecystectomy, he is resting comfortably in bed today, denies any acute distress, having some incisional abdominal pain, but no acute distress, lung sounds are clear to auscultation on today's exam, he is currently on 2 L of oxygen, his pulse ox is 95%, no fever or chills, vital signs have been stable, no new chest x-ray today, teens on nebulized bronchodilators, he is on Symbicort, nebulized DuoNeb, and IV Solu-Medrol 40 mg every 8 hours. He is currently receiving IV fluids with 0.9, seen at a rate of 89 per hour, and he is on insulin infusion at 5 units per hour, he is receiving when necessary morphine for incisional pain, he is on GI and DVT prophylaxis, today's labs have been reviewed, white blood cell count is 6.7, hemoglobin is 11.7, electrolytes and renal profile were unremarkable, he is on Zosyn for antibiotic coverage. His been started on clear liquid diet. Blood cultures remain negative. Objective - Vital Signs Vital signs: Vital Signs Temp 98.2 F 02/02/21 20:00 Pulse 84 02/03/21 11:53 Resp 18 02/03/21 04:00 BP 160/81 02/03/21 04:00 Pulse Ox 95 02/03/21 04:00 Intake & Output 02/02/21 02/03/21 02/03/21 18:59 06:59 18:59 Intake Total 800 106.334 860 Output Total 325 680 515 Balance 475 -[id number] 345 Weight 138 kg 139.5 kg Intake: IV 800 20 Invasive Line 4 10 Invasive Line 5 10 Intake, IV Titration 106.334 Amount Insulin Regular 100 unit 106.334 In Sodium Chloride 0.9% 100 ml @ Titrate IV .Q0M [facility] Rx#:[id number] Oral 0 840 Output: Drainage 30 15 Right Lower Abdomen 30 15 Urine 300 650 500 Estimated Blood Loss 25 Other: Voiding Method Toilet Indwelling Catheter Indwelling Catheter # Voids 1 # Bowel Movements 1 - Exam GENERAL EXAM: Alert, very pleasant, 60-year-old white male, sitting up in his to bed, he is currently on 2 L of oxygen with a pulse ox of 94%, comfortable in no apparent distress. HEAD: Normocephalic/atraumatic. EYES: Normal reaction of pupils, equal size. Conjunctiva pink, sclera white. NOSE: Clear with pink turbinates. THROAT: No erythema or exudates. NECK: No masses, no JVD, no thyroid enlargement, no adenopathy. CHEST: No chest wall deformity. Symmetrical expansion. LUNGS: Equal air entry with no crackles, wheeze, rhonchi or dullness. CVS: Regular rate and rhythm, normal S1 and S2, no gallops, no murmurs, no rubs ABDOMEN: Soft, nontender. No hepatosplenomegaly, normal bowel sounds, no guarding or rigidity. Transverse abd. incision is covered with a surgical dressing, clean dry and intact EXTREMITIES: No clubbing, no edema, no cyanosis, 2+ pulses and upper and lower extremities. MUSCULOSKELETAL: Muscle strength and tone normal. SPINE: No scoliosis or deformity SKIN: No rashes CENTRAL NERVOUS SYSTEM: Alert and oriented -3. No focal deficits, tone is normal in all 4 extremities. PSYCHIATRIC: Alert and oriented -3. Appropriate affect. Intact judgment and insight. - Labs CBC & Chem 7: 02/03/21 08:45 02/03/21 08:45 Labs: Abnormal Lab Results - Last 24 Hours (Table) 0902/02/21 02/02/21 Range/Units 12:52 14:31 16:12 RBC (4.30-5.90) m/uL Hgb (13.0-17.5) gm/dL Hct (39.0-53.0) % Lymphocytes # (1.0-4.8) k/uL Sodium (137-145) mmol/L Creatinine (0.66-1.25) mg/dL Glucose (74-99) mg/dL POC Glucose (mg/dL) 193 H 223 H 209 H (75-99) mg/dL Total Protein (6.3-8.2) g/dL Albumin (3.5-5.0) g/dL 02/02/21 02/02/21 02/02/21 Range/Units 17:47 20:11 22:13 RBC (4.30-5.90) m/uL Hgb (13.0-17.5) gm/dL Hct (39.0-53.0) % Lymphocytes # (1.0-4.8) k/uL Sodium (137-145) mmol/L Creatinine (0.66-1.25) mg/dL Glucose (74-99) mg/dL POC Glucose (mg/dL) 200 H 213 H 228 H (75-99) mg/dL Total Protein (6.3-8.2) g/dL Albumin (3.5-5.0) g/dL 02/03/21 02/03/21 02/03/21 Range/Units 00:14 01:59 04:00 RBC (4.30-5.90) m/uL Hgb (13.0-17.5) gm/dL Hct (39.0-53.0) % Lymphocytes # (1.0-4.8) k/uL Sodium (137-145) mmol/L Creatinine (0.66-1.25) mg/dL Glucose (74-99) mg/dL POC Glucose (mg/dL) 191 H 195 H 235 H (75-99) mg/dL Total Protein (6.3-8.2) g/dL Albumin (3.5-5.0) g/dL 02/03/21 02/03/21 02/03/21 Range/Units 06:09 08:16 08:45 RBC 3.51 L (4.30-5.90) m/uL Hgb 11.7 L (13.0-17.5) gm/dL Hct 34.3 L (39.0-53.0) % Lymphocytes # 0.7 L (1.0-4.8) k/uL Sodium (137-145) mmol/L Creatinine (0.66-1.25) mg/dL Glucose (74-99) mg/dL POC Glucose (mg/dL) 205 H 206 H (75-99) mg/dL Total Protein (6.3-8.2) g/dL Albumin (3.5-5.0) g/dL 02/03/21 02/03/21 02/03/21 Range/Units 08:45 10:03 11:57 RBC (4.30-5.90) m/uL Hgb (13.0-17.5) gm/dL Hct (39.0-53.0) % Lymphocytes # (1.0-4.8) k/uL Sodium 136 L (137-145) mmol/L Creatinine 0.44 L (0.66-1.25) mg/dL Glucose 198 H (74-99) mg/dL POC Glucose (mg/dL) 192 H 193 H (75-99) mg/dL Total Protein 5.4 L (6.3-8.2) g/dL Albumin 2.8 L (3.5-5.0) g/dL Microbiology - Last 24 Hours (Table) 01/31/21 21:30 Blood Culture - Preliminary Blood No Growth after 48 hours 01/30/21 21:08 Blood Culture - Preliminary Blood No Growth after 72 hours 01/30/21 21:00 Blood Culture - Preliminary Blood No Growth after 72 hours Assessment and Plan Plan: Assessment: #1. Chest pain with mild troponin elevation, consistent with non-ST elevated myocardial infarction, status post heart catheterization on 01/29/2021 showing minimal plaque involving the left circumflex and elevated LVEDP of 26-30 mmHg. CTA chest ruled out possibility of pulmonary embolism #2. Acute exacerbation of COPD, with the sudden onset of shortness of breath wheezing, possibility of an ALLERGIC reaction is not completely excluded although it is not clear what may have precipitated the attack. Patient is currently on IV steroids, he was started on antibiotics in the form of Zosyn and azithromycin, and nebulized bronchodilators, he was also given a dose of IV Lasix. Currently improved breathing, chest x-ray is unremarkable #3. Evidence of pulmonary emphysema on CTA chest from extensive history of smoking #4. COPD, not active at this time, severity is not known, but not oxygen dependent at baseline #5. 16-przy-exad history of smoking, chronic and ongoing, currently down to half a pack a day #6. Diabetes mellitus type 2 #7. Hypertension #8. Hyperlipidemia #9. History of closed head injury #10. Seizure disorder #11. Incarcerated ventral hernia containing transverse colon, no bowel o bstruction, patient will need surgery in the near future, general surgery is following #12. Acute cholecystitis, ultrasound of the gallbladder showed gallbladder wall thickening with surrounding fluid and 1.8 cm stone, status post open cholecystectomy lysis of adhesions, postoperative day #1 #13. Steroid induced hyperglycemia Plan: Patient is doing well, on postoperative day #1 status post open cholecystectomy Provide incentive spirometer Encourage deep breathing and coughing Maintain pain control Continue Zosyn Lung sounds are clear to auscultation on today's exam We'll further cut back his IV steroids to 40 mg every 12 hours Continue nebulized bronchodilators Continue to follow I performed a history & physical examination of the patient and discussed their management with my nurse practitioner, Yahaira Morrison. I reviewed the nurse practitioner's note and agree with the documented findings and plan of care. Lung sounds are positive for diminished breath sounds throughout the lung figueredo. The findings and the impression was discussed with the patient. I attest to the documentation by the nurse practitioner. Time with Patient: Less than 30
[2021-02-03] MEDS: HYDROcodone/APAP 5-325MG 1 EACH TAB PO PRN ×2 (12:38→17:26)
[2021-02-03] MEDS: INSULIN REGULAR 100 UNIT in SODIUM CHLORIDE 0.9% 100 ML IV SCH ×2 (13:10→13:30)
[2021-02-03 13:11] LABS: Glucose,Whole Blood 285 mg/dL (75-99)
[2021-02-03 13:56] LABS: Glucose,Whole Blood 307 mg/dL (75-99)
[2021-02-03] MEDS: hydrALAZINE HCL 25 MG TAB PO PRN ×2 (15:34→19:39)
--- NOTE | 2021-02-03 16:21 | P.PN ---
Subjective Progress Note Date: 02/02/21 Principal diagnosis: Non-ST elevated myocardial infarction Acute exacerbation of COPD Acute cholecystitis; status post cholecystectomy/adhesiolysis Objective - Vital Signs Vital signs: Vital Signs Temp 98.1 F 02/02/21 14:30 Pulse 92 02/02/21 14:30 Resp 20 02/02/21 14:30 BP 133/76 02/02/21 14:30 Pulse Ox 94 L 02/02/21 14:30 Intake & Output 02/01/21 02/02/21 02/02/21 18:59 06:59 18:59 Intake Total 382.667 554.308 800 Output Total 950 450 325 Balance -567.333 104.308 475 Weight 107.9 kg 138.8 kg 138 kg Intake: IV 800 Intake, IV Titration 24.667 69.308 Amount Insulin Regular 100 unit 24.667 69.308 In Sodium Chloride 0.9% 100 ml @ Titrate IV .Q0M [facility] Rx#:[id number] Oral 358 485 Output: Urine 950 450 300 Estimated Blood Loss 25 Other: Voiding Method Toilet Toilet Urinal Urinal # Voids 1 # Bowel Movements 1 - Exam GENERAL EXAM: Alert, very pleasant, 60-year-old white male, sitting up in his to bed, he is currently on 2 L of oxygen with a pulse ox of 94%, comfortable in no apparent distress. HEAD: Normocephalic/atraumatic. EYES: Normal reaction of pupils, equal size. Conjunctiva pink, sclera white. NOSE: Clear with pink turbinates. THROAT: No erythema or exudates. NECK: No masses, no JVD, no thyroid enlargement, no adenopathy. CHEST: No chest wall deformity. Symmetrical expansion. LUNGS: Equal air entry with no crackles, wheeze, rhonchi or dullness. CVS: Regular rate and rhythm, normal S1 and S2, no gallops, no murmurs, no rubs ABDOMEN: Soft, nontender. No hepatosplenomegaly, normal bowel sounds, no guarding or rigidity. Transverse abd. incision is covered with a surgical dressing, clean dry and intact EXTREMITIES: No clubbing, no edema, no cyanosis, 2+ pulses and upper and lower extremities. MUSCULOSKELETAL: Muscle strength and tone normal. - Labs CBC & Chem 7: 02/03/21 08:45 02/03/21 08:45 Labs: Abnormal Lab Results - Last 24 Hours (Table) 02/01/21 02/01/21 02/01/21 Range/Units 06:14 15:57 16:50 RBC (4.30-5.90) m/uL Hgb (13.0-17.5) gm/dL Hct (39.0-53.0) % Lymphocytes # (1.0-4.8) k/uL Creatinine (0.66-1.25) mg/dL Glucose (74-99) mg/dL POC Glucose (mg/dL) 224 H 259 H (75-99) mg/dL Hemoglobin A1c 6.4 H (4.0-6.0) % Total Protein (6.3-8.2) g/dL Albumin (3.5-5.0) g/dL 02/01/21 02/01/21 02/01/21 Range/Units 18:19 19:47 21:58 RBC (4.30-5.90) m/uL Hgb (13.0-17.5) gm/dL Hct (39.0-53.0) % Lymphocytes # (1.0-4.8) k/uL Creatinine (0.66-1.25) mg/dL Glucose (74-99) mg/dL POC Glucose (mg/dL) 361 H 298 H 197 H (75-99) mg/dL Hemoglobin A1c (4.0-6.0) % Total Protein (6.3-8.2) g/dL Albumin (3.5-5.0) g/dL 02/02/21 02/02/21 02/02/21 Range/Units 00:19 02:07 04:11 RBC (4.30-5.90) m/uL Hgb (13.0-17.5) gm/dL Hct (39.0-53.0) % Lymphocytes # (1.0-4.8) k/uL Creatinine (0.66-1.25) mg/dL Glucose (74-99) mg/dL POC Glucose (mg/dL) 157 H 177 H 204 H (75-99) mg/dL Hemoglobin A1c (4.0-6.0) % Total Protein (6.3-8.2) g/dL Albumin (3.5-5.0) g/dL 02/02/21 02/02/21 02/02/21 Range/Units 06:09 08:03 08:03 RBC 3.63 L (4.30-5.90) m/uL Hgb 12.1 L (13.0-17.5) gm/dL Hct 35.8 L (39.0-53.0) % Lymphocytes # 0.7 L (1.0-4.8) k/uL Creatinine 0.49 L (0.66-1.25) mg/dL Glucose 168 H (74-99) mg/dL POC Glucose (mg/dL) 199 H (75-99) mg/dL Hemoglobin A1c (4.0-6.0) % Total Protein 5.6 L (6.3-8.2) g/dL Albumin 3.0 L (3.5-5.0) g/dL 02/02/21 02/02/21 02/02/21 Range/Units 08:06 09:59 11:39 RBC (4.30-5.90) m/uL Hgb (13.0-17.5) gm/dL Hct (39.0-53.0) % Lymphocytes # (1.0-4.8) k/uL Creatinine (0.66-1.25) mg/dL Glucose (74-99) mg/dL POC Glucose (mg/dL) 174 H 166 H 180 H (75-99) mg/dL Hemoglobin A1c (4.0-6.0) % Total Protein (6.3-8.2) g/dL Albumin (3.5-5.0) g/dL 02/02/21 02/02/21 Range/Units 12:52 14:31 RBC (4.30-5.90) m/uL Hgb (13.0-17.5) gm/dL Hct (39.0-53.0) % Lymphocytes # (1.0-4.8) k/uL Creatinine (0.66-1.25) mg/dL Glucose (74-99) mg/dL POC Glucose (mg/dL) 193 H 223 H (75-99) mg/dL Hemoglobin A1c (4.0-6.0) % Total Protein (6.3-8.2) g/dL Albumin (3.5-5.0) g/dL Microbiology - Last 24 Hours (Table) 01/31/21 21:30 Blood Culture - Preliminary Blood No Growth after 24 hours 01/30/21 21:08 Blood Culture - Preliminary Blood No Growth after 48 hours 01/30/21 21:00 Blood Culture - Preliminary Blood No Growth after 48 hours Assessment and Plan Assessment: Acute cholecystitis Chest pain, with negative cardiac cath and negative CTA for pulmonary embolism. Resolved Hypertension with urgency on admission . Today he was hypotensive improved with IV fluids Abdominal hernia, patient with incarcerated ventral hernia containing transverse colon. Already evaluated by surgeonGo ahead recommend close outpatient follow- up Pulmonary emphysema Hyperlipidemia Diabetes mellitus History of deep venous thrombosis, not on anticoagulation History of seizure disorder History of closed head injury Plan: This is a pleasant 60 years old male who presents with chest pain and hypertension Continue with Zosyn,and IV fluid, and follow-up with surgery team for acute cholecystitis. Follow-up blood culture Resume His home medications and monitor his blood pressure carefully. Cardiology consult, with negative cardiac cath Pulmonary team consult Labs and medication were reviewed.. Continue same treatment. Continue with symptomatic treatment. Resume home medication. Monitor lytes and vitals. DVT and GI prophylaxis. Further recommendations depends on the clinical course of the patient DVT prophylaxis: Subcutaneous heparin GI Prophylaxis: Ppi Prognosis is guarded
--- NOTE | 2021-02-03 16:26 | P.PN ---
Subjective Progress Note Date: 02/03/21 Principal diagnosis: Non-ST elevated myocardial infarction Acute exacerbation of COPD Acute cholecystitis; status post cholecystectomy/adhesiolysis This is a pleasant 60 years old male with past medical history of diabetes mellitus, deep venous thrombosis, hypertension, hyperlipidemia, seizure disorder, closed head injury. His patient of Dr. Pang Presents with severe chest pain, 60/10, now feels a little better almost disappeared as 0/10. Central, nonradiating pain. Feels like squeezing 02/03/2021 Patient is seen in follow-up on selective care unit, status post open cholecystectomy; POD #1, he is resting comfortably in bed today, denies any acute distress, having some incisional abdominal pain, but no acute distress; currently on 2 L of oxygen, his pulse ox is 95%, no fever or chills Vital signs have been stable, no new chest x-ray today, patient remains on nebulized bronchodilators, Symbicort, nebulized DuoNeb, and IV Solu-Medrol 40 mg every 8 hours. He is currently receiving IV fluids with 0.9, seen at a rate of 89 per hour, and he is on insulin infusion at 5 units per hour, he is receiving when necessary morphine for incisional pain, he is on GI and DVT prophylaxis, today's labs have been reviewed, white blood cell count is 6.7, hemoglobin is 11.7, electrolytes and renal profile were unremarkable, he is on Zosyn for antibiotic coverage. His been started on clear liquid diet. Blood cultures remain negative. Patient is encouraged to continue with incentive spirometry along with deep breathing and coughing; remains on IV Zosyn; pulmonary recommending to continue to taper steroids down to 40 mg every 12 hours Objective - Vital Signs Vital signs: Vital Signs Temp 98.2 F 02/02/21 20:00 Pulse 84 02/03/21 08:31 Resp 18 02/03/21 04:00 BP 160/81 02/03/21 04:00 Pulse Ox 95 02/03/21 04:00 Intake & Output 02/02/21 02/03/21 02/03/21 18:59 06:59 18:59 Intake Total 800 106.334 240 Output Total 325 680 Balance 475 -573.666 240 Weight 138 kg 139.5 kg Intake: IV 800 Intake, IV Titration 106.334 Amount Insulin Regular 100 unit 106.334 In Sodium Chloride 0.9% 100 ml @ Titrate IV .Q0M [facility] Rx#:[id number] Oral 0 240 Output: Drainage 30 Right Lower Abdomen 30 Urine 300 650 Estimated Blood Loss 25 Other: Voiding Method Toilet Indwelling Catheter # Voids 1 # Bowel Movements 1 - Exam GENERAL EXAM: Alert, very pleasant, 60-year-old white male, sitting up in his to bed, he is currently on 2 L of oxygen with a pulse ox of 94%, comfortable in no apparent distress. HEAD: Normocephalic/atraumatic. EYES: Normal reaction of pupils, equal size. Conjunctiva pink, sclera white. NOSE: Clear with pink turbinates. THROAT: No erythema or exudates. NECK: No masses, no JVD, no thyroid enlargement, no adenopathy. CHEST: No chest wall deformity. Symmetrical expansion. LUNGS: Equal air entry with no crackles, wheeze, rhonchi or dullness. CVS: Regular rate and rhythm, normal S1 and S2, no gallops, no murmurs, no rubs ABDOMEN: Soft, nontender. No hepatosplenomegaly, normal bowel sounds, no guarding or rigidity. Transverse abd. incision is covered with a surgical dressing, clean dry and intact EXTREMITIES: No clubbing, no edema, no cyanosis, 2+ pulses and upper and lower extremities. MUSCULOSKELETAL: Muscle strength and tone normal. - Labs CBC & Chem 7: 02/03/21 08:45 02/03/21 08:45 Labs: Abnormal Lab Results - Last 24 Hours (Table) 02/02/21 02/02/21 02/02/21 Range/Units 11:39 12:52 14:31 RBC (4.30-5.90) m/uL Hgb (13.0-17.5) gm/dL Hct (39.0-53.0) % Lymphocytes # (1.0-4.8) k/uL Sodium (137-145) mmol/L Creatinine (0.66-1.25) mg/dL Glucose (74-99) mg/dL POC Glucose (mg/dL) 180 H 193 H 223 H (75-99) mg/dL Total Protein (6.3-8.2) g/dL Albumin (3.5-5.0) g/dL 02/02/21 02/02/2121 Range/Units 16:12 17:47 20:11 RBC (4.30-5.90) m/uL Hgb (13.0-17.5) gm/dL Hct (39.0-53.0) % Lymphocytes # (1.0-4.8) k/uL Sodium (137-145) mmol/L Creatinine (0.66-1.25) mg/dL Glucose (74-99) mg/dL POC Glucose (mg/dL) 209 H 200 H 213 H (75-99) mg/dL Total Protein (6.3-8.2) g/dL Albumin (3.5-5.0) g/dL 02/02/21 02/03/21 02/03/21 Range/Units 22:13 00:14 01:59 RBC (4.30-5.90) m/uL Hgb (13.0-17.5) gm/dL Hct (39.0-53.0) % Lymphocytes # (1.0-4.8) k/uL Sodium (137-145) mmol/L Creatinine (0.66-1.25) mg/dL Glucose (74-99) mg/dL POC Glucose (mg/dL) 228 H 191 H 195 H (75-99) mg/dL Total Protein (6.3-8.2) g/dL Albumin (3.5-5.0) g/dL 02/03/21 02/03/21 02/03/21 Range/Units 04:00 06:09 08:16 RBC (4.30-5.90) m/uL Hgb (13.0-17.5) gm/dL Hct (39.0-53.0) % Lymphocytes # (1.0-4.8) k/uL Sodium (137-145) mmol/L Creatinine (0.66-1.25) mg/dL Glucose (74-99) mg/dL POC Glucose (mg/dL) 235 H 205 H 206 H (75-99) mg/dL Total Protein (6.3-8.2) g/dL Albumin (3.5-5.0) g/dL 02/03/21 02/03/21 02/03/21 Range/Units 08:45 08:45 10:03 RBC 3.51 L (4.30-5.90) m/uL Hgb 11.7 L (13.0-17.5) gm/dL Hct 34.3 L (39.0-53.0) % Lymphocytes # 0.7 L (1.0-4.8) k/uL Sodium 136 L (137-145) mmol/L Creatinine 0.44 L (0.66-1.25) mg/dL Glucose 198 H (74-99) mg/dL POC Glucose (mg/dL) 192 H (75-99) mg/dL Total Protein 5.4 L (6.3-8.2) g/dL Albumin 2.8 L (3.5-5.0) g/dL Microbiology - Last 24 Hours (Table) 01/31/21 21:30 Blood Culture - Preliminary Blood No Growth after 48 hours 01/30/21 21:08 Blood Culture - Preliminary Blood No Growth after 72 hours 01/30/21 21:00 Blood Culture - Preliminary Blood No Growth after 72 hours Assessment and Plan Assessment: Acute cholecystitis Chest pain, with negative cardiac cath and negative CTA for pulmonary embolism. Resolved Hypertension with urgency on admission . Today he was hypotensive improved with IV fluids Abdominal hernia, patient with incarcerated ventral hernia containing transverse colon. Already evaluated by surgeonGo ahead recommend close outpatient follow- up Pulmonary emphysema Hyperlipidemia Diabetes mellitus History of deep venous thrombosis, not on anticoagulation History of seizure disorder History of closed head injury Plan: This is a pleasant 60 years old male who presents with chest pain and hypertension Continue with Zosyn,and IV fluid, and follow-up with surgery team for acute cholecystitis. Follow-up blood culture Resume His home medications and monitor his blood pressure carefully. Cardiology consult, with negative cardiac cath Pulmonary team consult Labs and medication were reviewed.. Continue same treatment. Continue with symptomatic treatment. Resume home medication. Monitor lytes and vitals. DVT and GI prophylaxis. Further recommendations depends on the clinical course of the patient DVT prophylaxis: Subcutaneous heparin GI Prophylaxis: Ppi Prognosis is guarded
--- NOTE | 2021-02-03 16:27 | PN ---
PROGRESS NOTE DATE OF SERVICE: 02/03/2021 REASON FOR FOLLOW UP: Fever, cholecystitis. INTERVAL HISTORY: Patient is afebrile. The patient is feeling better. The patient denies having any chest pain or shortness of breath. Occasional cough. Pain to the upper abdominal area has improved. No further nausea, vomiting or diarrhea. PHYSICAL EXAMINATION: Blood pressure 169/91 with a pulse of 84, temperature is 10.2. He is 96% on room air. General description is a middle-aged male lying in bed in no distress. Respiratory system unlabored breathing. Clear to auscultation anteriorly. Heart S1, S2. Regular rate and rhythm. Abdomen soft, no tenderness. LABS: Hemoglobin 11.1, white count 6.7, BUN of 12, creatinine 0.44. DIAGNOSTIC IMPRESSION AND PLAN: Patient with worsening acute cholecystitis status post cholecystectomy. Patient is covered with Zosyn, to continue. Monitor clinical course closely. Continue supportive care. MMODL / REINALDON: [id number] /
[2021-02-03 16:28] LABS: Glucose,Whole Blood 196 mg/dL (75-99)
[2021-02-03 16:53] LABS: Glucose,Whole Blood 207 mg/dL (75-99)
[2021-02-03 18:05] LABS: Glucose,Whole Blood 227 mg/dL (75-99)
[2021-02-03] MEDS: ATORVASTATIN 40 MG TAB PO SCH (19:39)
[2021-02-03] MEDS: ISOSORBIDE MONONITRATE ER 60 MG TAB.ER.24H PO SCH (19:40)
[2021-02-03 20:00] LABS: Glucose,Whole Blood 228 mg/dL (75-99)
[2021-02-03 21:54] LABS: Glucose,Whole Blood 187 mg/dL (75-99)
[2021-02-03 23:59] LABS: Glucose,Whole Blood 145 mg/dL (75-99)
[2021-02-04] MEDS: INSULIN REGULAR 100 UNIT in SODIUM CHLORIDE 0.9% 100 ML IV SCH (00:03)
[2021-02-04 02:04] LABS: Glucose,Whole Blood 134 mg/dL (75-99)
[2021-02-04 04:17] LABS: Glucose,Whole Blood 201 mg/dL (75-99)
[2021-02-04 05:57] LABS: Glucose,Whole Blood 181 mg/dL (75-99)
[2021-02-04] MEDS: SYMBICORT 160-4.5 MCG INHALER INHALATION SCH ×2 (07:31→20:14)
[2021-02-04] MEDS: IPRATROPIUM-ALBUTEROL 3 ML NEB INHALATION SCH ×4 (07:31→20:14)
[2021-02-04 08:09] LABS: Glucose,Whole Blood 164 mg/dL (75-99)
[2021-02-04] MEDS: INSULIN ASPART (NovoLOG) 100 UNIT/ML VIAL SQ SCH ×3 (08:29→17:27)
[2021-02-04] MEDS: HEPARIN SODIUM,PORCINE/PF 5,000 UNIT/0.5 ML SYRINGE SQ SCH ×2 (08:29→19:56)
[2021-02-04] MEDS: PIPERACILLIN-TAZOBACTAM 3.375 GM in SODIUM CHLORIDE 0.9% 100 ML IVPB SCH ×3 (08:29→23:08)
[2021-02-04] MEDS: ASPIRIN 81 MG PO SCH (08:30)
[2021-02-04] MEDS: PANTOPRAZOLE 40 MG TABLET PO SCH (08:30)
[2021-02-04] MEDS: methylPREDNISolone SOD SUCCI 40 MG/ML 1 ML VIAL IV SCH ×3 (08:30→23:08)
[2021-02-04] MEDS: carBAMazepine 200 MG TAB PO SCH ×2 (08:30→19:56)
[2021-02-04] MEDS: FUROSEMIDE 20 MG TAB PO SCH (08:30)
[2021-02-04] MEDS: DOCUSATE 100 MG CAP PO SCH ×2 (08:30→19:56)
[2021-02-04] MEDS: NON FORMULARY DRUG (Empagliflozin [Jardiance] 25 MG Tablet) PO SCH (08:31)
[2021-02-04 10:08] LABS: Glucose,Whole Blood 152 mg/dL (75-99)
--- NOTE | 2021-02-04 11:58 | P.PN ---
Progress Note - Text Progress Note Date: 02/04/21 Patient's feeling better. On exam vitals are stable. Abdomen soft. Right subcostal incisions clean. Status post open cholecystectomy. We into the discharge home tomorrow.
[2021-02-04 12:03] LABS: Glucose,Whole Blood 151 mg/dL (75-99)
[2021-02-04] MEDS: hydrALAZINE HCL 25 MG TAB PO PRN ×2 (12:15→16:18)
--- NOTE | 2021-02-04 13:56 | P.PN ---
Subjective Progress Note Date: 02/04/21 60-year-old white male patient, with over [id number] smoking history, currently down to half a pack a day, does not follow with a lung specialist, he is not on any maintenance inhalers or breathing treatments, also has history of hypertension, hyperlipidemia, diabetes mellitus type 2, history of DVT, seizure disorder, history of closed head injury of unclear circumstances who came into the emergency department on 01/27/2021 for evaluation of chest pain, and diaphoresis. His EKG showed normal sinus rhythm. Patient follows with Dr. Pang for primary care services. His chest pain was central, nonradiating, and felt like squeezing discomfort. Had no nausea or vomiting, no fever or chills, denies any cough or phlegm production. Patient drinks about 1 beer a day 3 days a week, denies any use of illicit drugs. His history of DVT was from 3 years ago, currently not on any anticoagulation. On presentation his blood pressure was elevated, however his other vitals looked stable. No fever, his labs showed mild leukocytosis with a white count of 12.4, hemoglobin 14.5, platelet count of 254, INR of 0.9, sodium 134, depressed electrolytes were within normal limits, BUN is 14 creatinine 0.65, LFTs were within normal limits, his troponins were 0.071, 0.070, 0.056, proBNP was 332. Lipase was 30. CTA chest was completed showing no evidence of pulmonary embolism, over there was pulmonary emphysema noted in the upper and lower lobes bilaterally. No acute lung disease. CT of the abdomen and pelvis with contrast was completed showing incarcerated ventral hernia containing transverse colon, no bowel obstruction, and there was clearing of the retroperitoneal fluid and fat stranding compared old exam. Sigmoid diverticulosis was unchanged. Patient underwent cardiac evaluation, and cardiac catheterization today on 01 29 2021 which showed minimal plaque involving the left circumflex, and elevated left ventricular end- diastolic pressure 26-30 mmHg. Patient was also seen by general surgery for incarcerated incisional hernia, with the recommendation for surgical intervention in the near future. In the meantime he is tolerating oral diet. We were asked to see the patient in evaluation possibility of pulmonary causes of his chest pain. Currently has no chest pain, he is sitting up on H2 bed, breathing comfortably, he is on room air, no cough, no chest discomfort, no phlegm production, no hemoptysis. Lung sounds are quite diminished bilaterally, no wheezing or rhonchi noted. Today's labs have been noted showing white blood cell, 12.2, hemoglobin of 13.3, sodium is 132, the rest of electrolytes were within normal limits, BUN of 7 creatinine 0.45. On 01/31/2021 patient seen in follow-up on [facility] care unit, this morning around 1 in the morning rapid response team was called for evaluation of sudden onset of difficulty in breathing. Patient he did have fevers, and elevated blood pressure. He was also desaturating to below 80% on room air, he was cyanotic, bronchospastic, and using accessory muscles of respirations. The was no leg edema or tenderness of calf muscles. Patient was suspected to have flash pulmonary edema with elevated blood pressure and he received a dose of IV Lasix he was placed on a nonrebreather mask, he was given a dose of IV Solu-Medrol, Pepcid and Benadryl for a suspected ALLERGIC reaction. Chest x-ray was completed and was unremarkable. Subsequently his breathing improved in response to diuretics, steroids, and oxygen. he was placed on a combination of azithromycin and Zosyn for empiric antibiotic coverage, he does have underlying COPD, which is active right now, he continues on Solu-Medrol 60 mg every 6 hours, he is on bronchodilators, and he continues on empiric antibiotics. Currently he is resting comfortably in bed, he continues on liters of oxygen his pulse ox is 94%, he is afebrile, his labs have been reviewed, his white blood cell count is 4.3, hemoglobin is 13.7, sodium is 133, potassium 3.9, chloride is 97, CO2 was 22, B1 is 22, creatinine 0.96. ProBNP was 593. Sounds still reveal diminished breath sounds with diffuse wheezing on forced exhale expiration maneuver. On 02/01/2021 patient seen in follow-up on [facility] care unit, he is complaining of right upper quadrant abdominal pain, tenderness with palpation, CT chest abdomen and pelvis has been completed showing possibility acute cholecystitis, denied any chest pain overnight, he is resting in bed, breathing comfortably, related to use of oxygen, pulse ox is 96%, no cough or congestion, no wheezing, his been afebrile overnight, slightly tachycardic, blood pressures been stable, follow-up chest x-ray today shows cardiomegaly and low lung volumes without new acute pulmonary process. Patient is on Zosyn, we added doxycycline yesterday, however in view of possibility of acute cholecystitis, we will stop The doxycycline and continue with IV Zosyn for now. Gallbladder ultrasound has been completed showing gallbladder wall thickening with surrounding fluid and a 1.8 cm tone, findings were concerning for acute cholecystitis, despite the negative sonographic signs. Gen. surgery has been consulted. Today's labs have been reviewed, white blood cell, is 10.9, hemoglobin is 13, sodium is 133, potassium is 4.0, chloride is 101, CO2 is 18, BUN is 46, creatinine is 1.2. LFTs were within normal limits, total bilirubin was 0.4, lipase was low at 15, and amylase was 33. Continues Symbicort, breathing treatments, and IV steroids at 60 mg every 6 hours. On 02/03/2021 is seen in follow-up on selective care unit, he is postoperative day #1, status post open cholecystectomy, he is resting comfortably in bed today, denies any acute distress, having some incisional abdominal pain, but no acute distress, lung sounds are clear to auscultation on today's exam, he is currently on 2 L of oxygen, his pulse ox is 95%, no fever or chills, vital signs have been stable, no new chest x-ray today, teens on nebulized bronchodilators, he is on Symbicort, nebulized DuoNeb, and IV Solu-Medrol 40 mg every 8 hours. He is currently receiving IV fluids with 0.9, seen at a rate of 89 per hour, and he is on insulin infusion at 5 units per hour, he is receiving when necessary morphine for incisional pain, he is on GI and DVT prophylaxis, today's labs have been reviewed, white blood cell count is 6.7, hemoglobin is 11.7, electrolytes and renal profile were unremarkable, he is on Zosyn for antibiotic coverage. His been started on clear liquid diet. Blood cultures remain negative. The patient is seen today 02/04/2021 in follow-up on the selective care unit. Postoperative day #2. Status post open cholecystectomy. He is currently seen resting comfortably in bed. Awake and alert in no acute distress. He is maintaining O2 saturations in the 90s on room air. He's been afebrile. Blood cultures reveal no growth. Glucose 151. He remains on DuoNeb inhalations, Symbicort, IV Timentin. Remains on a insulin drip at 2.5 units per hour. 0.9 normal saline at 80 MLS per hour. Antibiotics in the form of Zosyn. Remains on clear liquid diet. Objective - Vital Signs Vital signs: Vital Signs Temp 98 F 02/04/21 12:00 Pulse 92 02/04/21 12:00 Resp 20 02/04/21 12:00 BP 176/78 02/04/21 12:00 Pulse Ox 91 L 02/04/21 12:00 Intake & Output 02/03/21 02/04/21 02/04/21 18:59 06:59 18:59 Intake Total 2968.642 1019.466 199.567 Output Total 1065 700 345 Balance 1903.642 319.466 -145.433 Weight 139.5 kg 128 kg Intake: IV 40 Invasive Line 4 20 Invasive Line 5 20 Intake, IV Titration 68.642 49.466 19.567 Amount Insulin Regular 100 unit 68.642 49.466 19.567 In Sodium Chloride 0.9% 100 ml @ Titrate IV .Q0M [facility] Rx#:[id number] Oral 2860 970 180 Output: Drainage 15 20 Right Lower Abdomen 15 20 Urine 1050 700 325 Other: Voiding Method Indwelling Catheter Toilet Toilet Urinal Urinal # Voids 1 1 # Bowel Movements 1 - Exam GENERAL EXAM: Alert, very pleasant, 60-year-old male patient, currently on room air with a pulse ox of 91%, comfortable in no apparent distress. HEAD: Normocephalic/atraumatic. EYES: Normal reaction of pupils, equal size. Conjunctiva pink, sclera white. NOSE: Clear with pink turbinates. THROAT: No erythema or exudates. NECK: No masses, no JVD, no thyroid enlargement, no adenopathy. CHEST: No chest wall deformity. Symmetrical expansion. LUNGS: Equal air entry with no crackles, wheeze, rhonchi or dullness. CVS: Regular rate and rhythm, normal S1 and S2, no gallops, no murmurs, no rubs ABDOMEN: Soft, nontender. Normal bowel sounds, no guarding or rigidity. Transverse abd. incision is covered with a surgical dressing, clean dry and intact EXTREMITIES: No clubbing, no edema, no cyanosis, 2+ pulses and upper and lower extremities. MUSCULOSKELETAL: Muscle strength and tone normal. SPINE: No scoliosis or deformity SKIN: No rashes CENTRAL NERVOUS SYSTEM: No focal deficits, tone is normal in all 4 extremities. PSYCHIATRIC: Alert and oriented -3. Appropriate affect. Intact judgment and insight. - Labs CBC & Chem 7: 02/03/21 08:45 02/03/21 08:45 Labs: Abnormal Lab Results - Last 24 Hours (Table) 02/03/21 02/03/21 02/03/21 Range/Units 13:53 16:02 16:52 POC Glucose (mg/dL) 307 H 196 H 207 H (75-99) mg/dL 02/03/21 02/03/21 02/03/21 Range/Units 18:03 19:58 21:53 POC Glucose (mg/dL) 227 H 228 H 187 H (75-99) mg/dL 02/03/21 02/04/21 02/04/21 Range/Units 23:58 02:01 04:15 POC Glucose (mg/dL) 145 H 134 H 201 H (75-99) mg/dL 02/04/21 02/04/21 02/04/21 Range/Units 05:55 08:06 10:06 POC Glucose (mg/dL) 181 H 164 H 152 H (75-99) mg/dL 02/04/21 Range/Units 12:02 POC Glucose (mg/dL) 151 H (75-99) mg/dL Microbiology - Last 24 Hours (Table) 01/31/21 21:30 Blood Culture - Preliminary Blood No Growth after 72 hours 01/30/21 21:08 Blood Culture - Preliminary Blood No Growth after 96 hours 01/30/21 21:00 Blood Culture - Preliminary Blood No Growth after 96 hours Assessment and Plan Assessment: 1 Chest pain with mild troponin elevation, consistent with non-ST elevated myocardial infarction, status post heart catheterization on 01/29/2021 showing minimal plaque involving the left circumflex and elevated LVEDP of 26-30 mmHg. CTA chest ruled out possibility of pulmonary embolism 2 Acute exacerbation of COPD 3 Evidence of pulmonary emphysema on CTA chest from extensive history of smoking 4 [id number] history of smoking, chronic and ongoing, currently down to half a pack a day 5 Diabetes mellitus type 2 6 Hypertension 7 Hyperlipidemia 8 History of closed head injury 9 Seizure disorder 10 Incarcerated ventral hernia containing transverse colon, no bowel obstruction, patient will need surgery in the near future, general surgery is following 11 Acute cholecystitis, ultrasound of the gallbladder showed gallbladder wall thickening with surrounding fluid and 1.8 cm stone, status post open cholecystectomy lysis of adhesions, postoperative day #2 12 Steroid induced hyperglycemia Plan: The patient was seen and evaluated by Dr. Bazan Postoperative day #2 following open cholecystectomy Working well with the incentive spirometer Continued on bronchodilators Tolerating clear liquids Home once cleared by surgical services I, the cosigning physician, performed a history & physical examination of the patient. Lungs sounds are clear. Maintaining good O2 saturations in the 90s on room air. I discussed the assessment and plan of care with my nurse Rhianna martines. I attest to the above note as dictated by her.
[2021-02-04 14:01] LABS: Glucose,Whole Blood 248 mg/dL (75-99)
[2021-02-04 16:01] LABS: Glucose,Whole Blood 180 mg/dL (75-99)
[2021-02-04] MEDS: HYDROcodone/APAP 5-325MG 1 EACH TAB PO PRN (16:18)
[2021-02-04] MEDS: SODIUM CHLORIDE 0.9% 1,000 ML IV SCH ×2 (16:23→21:32)
[2021-02-04 18:09] LABS: Glucose,Whole Blood 228 mg/dL (75-99)
--- NOTE | 2021-02-04 18:29 | P.PN ---
Subjective Progress Note Date: 02/04/21 Principal diagnosis: Non-ST elevated myocardial infarction Acute exacerbation of COPD Acute cholecystitis; status post cholecystectomy/adhesiolysis This is a pleasant 60 years old male with past medical history of diabetes mellitus, deep venous thrombosis, hypertension, hyperlipidemia, seizure disorder, closed head injury. His patient of Dr. Pang Presents with severe chest pain, 60/10, now feels a little better almost disappeared as 0/10. Central, nonradiating pain. Feels like squeezing 02/03/2021 Patient is seen in follow-up on selective care unit, status post open cholecystectomy; POD #1, he is resting comfortably in bed today, denies any acute distress, having some incisional abdominal pain, but no acute distress; currently on 2 L of oxygen, his pulse ox is 95%, no fever or chills Vital signs have been stable, no new chest x-ray today, patient remains on nebulized bronchodilators, Symbicort, nebulized DuoNeb, and IV Solu-Medrol 40 mg every 8 hours. He is currently receiving IV fluids with 0.9, seen at a rate of 89 per hour, and he is on insulin infusion at 5 units per hour, he is receiving when necessary morphine for incisional pain, he is on GI and DVT prophylaxis, today's labs have been reviewed, white blood cell count is 6.7, hemoglobin is 11.7, electrolytes and renal profile were unremarkable, he is on Zosyn for antibiotic coverage. His been started on clear liquid diet. Blood cultures remain negative. Patient is encouraged to continue with incentive spirometry along with deep breathing and coughing; remains on IV Zosyn; pulmonary recommending to continue to taper steroids down to 40 mg every 12 hours 02/04/2021 Patient is seen and evaluated in follow-up on the selective care unit. POD #2. Status post open cholecystectomy. He is currently seen resting comfortably in bed. Awake and alert in no acute distress. He is maintaining O2 saturations in the 90s on room air. He's been afebrile. Blood cultures reveal no growth. Glucose 151. He remains on DuoNeb inhalations, Symbicort, IV Timentin. Remains on a insulin drip at 2.5 units per hour. 0.9 normal saline at 80 MLS per hour. Antibiotics in the form of Zosyn. Remains on clear liquid diet. Patient encouraged again to use incentive spirometer; we will continue with bronchodilator therapy; Gen. surgery is following and recommending to advance diet with possible discharge in next 24 hours Objective - Vital Signs Vital signs: Vital Signs Temp 97.7 F 02/04/21 08:00 Pulse 90 02/04/21 11:19 Resp 20 02/04/21 08:00 BP 176/86 02/04/21 08:00 Pulse Ox 92 L 02/04/21 08:00 Intake & Output 02/03/21 02/04/21 02/04/21 18:59 06:59 18:59 Intake Total 2968.642 1019.466 15.317 Output Total 1065 700 245 Balance 1903.642 319.466 -229.683 Weight 139.5 kg 128 kg Intake: IV 40 Invasive Line 4 20 Invasive Line 5 20 Intake, IV Titration 68.642 49.466 15.317 Amount Insulin Regular 100 unit 68.642 49.466 15.317 In Sodium Chloride 0.9% 100 ml @ Titrate IV .Q0M [facility] Rx#:[id number] Oral 2860 970 Output: Drainage 15 20 Right Lower Abdomen 15 20 Urine 1050 700 225 Other: Voiding Method Indwelling Catheter Toilet Toilet Urinal Urinal # Voids 1 1 # Bowel Movements 1 - Exam GENERAL EXAM: Alert, very pleasant, 60-year-old white male, sitting up in his to bed, he is currently on 2 L of oxygen with a pulse ox of 94%, comfortable in no apparent distress. HEAD: Normocephalic/atraumatic. EYES: Normal reaction of pupils, equal size. Conjunctiva pink, sclera white. NOSE: Clear with pink turbinates. THROAT: No erythema or exudates. NECK: No masses, no JVD, no thyroid enlargement, no adenopathy. CHEST: No chest wall deformity. Symmetrical expansion. LUNGS: Equal air entry with no crackles, wheeze, rhonchi or dullness. CVS: Regular rate and rhythm, normal S1 and S2, no gallops, no murmurs, no rubs ABDOMEN: Soft, nontender. No hepatosplenomegaly, normal bowel sounds, no guarding or rigidity. Transverse abd. incision is covered with a surgical dressing, clean dry and intact EXTREMITIES: No clubbing, no edema, no cyanosis, 2+ pulses and upper and lower extremities. MUSCULOSKELETAL: Muscle strength and tone normal. - Labs CBC & Chem 7: 02/03/21 08:45 02/03/21 08:45 Labs: Abnormal Lab Results - Last 24 Hours (Table) 02/03/21 02/03/21 02/03/21 Range/Units 11:57 13:10 13:53 POC Glucose (mg/dL) 193 H 285 H 307 H (75-99) mg/dL 02/03/21 02/03/21 02/03/21 Range/Units 16:02 16:52 18:03 POC Glucose (mg/dL) 196 H 207 H 227 H (75-99) mg/dL 02/03/21 02/03/21 02/03/21 Range/Units 19:58 21:53 23:58 POC Glucose (mg/dL) 228 H 187 H 145 H (75-99) mg/dL 02/04/21 02/04/21 02/04/21 Range/Units 02:01 04:15 05:55 POC Glucose (mg/dL) 134 H 201 H 181 H (75-99) mg/dL 02/04/21 02/04/21 Range/Units 08:06 10:06 POC Glucose (mg/dL) 164 H 152 H (75-99) mg/dL Microbiology - Last 24 Hours (Table) 01/31/21 21:30 Blood Culture - Preliminary Blood No Growth after 72 hours 01/30/21 21:08 Blood Culture - Preliminary Blood No Growth after 96 hours 01/30/21 21:00 Blood Culture - Preliminary Blood No Growth after 96 hours Assessment and Plan Assessment: Acute cholecystitis Chest pain, with negative cardiac cath and negative CTA for pulmonary embolism. Resolved Hypertension with urgency on admission . Today he was hypotensive improved with IV fluids Abdominal hernia, patient with incarcerated ventral hernia containing transverse colon. Already evaluated by surgeonGo ahead recommend close outpatient follow- up Pulmonary emphysema Hyperlipidemia Diabetes mellitus History of deep venous thrombosis, not on anticoagulation History of seizure disorder History of closed head injury Plan: This is a pleasant 60 years old male who presents with chest pain and hypertension Continue with Zosyn,and IV fluid, and follow-up with surgery team for acute cholecystitis. Follow-up blood culture Resume His home medications and monitor his blood pressure carefully. Cardiology consult, with negative cardiac cath Pulmonary team consult Labs and medication were reviewed.. Continue same treatment. Continue with symptomatic treatment. Resume home medication. Monitor lytes and vitals. DVT and GI prophylaxis. Further recommendations depends on the clinical course of the patient DVT prophylaxis: Subcutaneous heparin GI Prophylaxis: Ppi Prognosis is guarded
[2021-02-04] MEDS: HYDROmorphone 1 MG/ML 1 ML SYRINGE IVP PRN (19:56)
[2021-02-04] MEDS: ISOSORBIDE MONONITRATE ER 60 MG TAB.ER.24H PO SCH (19:56)
[2021-02-04] MEDS: ATORVASTATIN 40 MG TAB PO SCH (19:56)
[2021-02-04 20:35] LABS: Glucose,Whole Blood 100 mg/dL (75-99)
[2021-02-04 21:30] LABS: Glucose,Whole Blood 109 mg/dL (75-99)
[2021-02-04 22:08] LABS: Glucose,Whole Blood 117 mg/dL (75-99)
--- NOTE | 2021-02-04 23:02 | PN ---
PROGRESS NOTE DATE OF SERVICE: 02/04/2021 REASON FOR FOLLOWUP: Fever, cholecystitis. INTERVAL HISTORY: Patient is afebrile. The patient is currently breathing comfortably. Denies having any chest pain, shortness of breath or cough. Abdominal pain is currently controlled. Tolerating a full liquid diet. No vomiting or diarrhea. PHYSICAL EXAMINATION: Blood pressure 166/80 with a pulse of 72, temperature is 97.9. He is 96% on room air. General description is a middle-aged male lying in bed in no distress. Respiratory system: Unlabored breathing, decreased intensity of breath sounds. No wheeze. Heart S1, S2. Regular rate and rhythm. Abdomen: Soft. No tenderness. LABS: White count yesterday and no new labs have been obtained today. Blood culture has been negative. DIAGNOSTIC IMPRESSION AND PLAN: Patient with fever, , cholecystitis status post cholecystectomy. Patient is covered with Zosyn that will be continued and transition to oral antibiotic on discharge. Continue supportive care. MMODL / IJN: [id number] /
[2021-02-04 23:39] LABS: Glucose,Whole Blood 159 mg/dL (75-99)
[2021-02-05 01:31] LABS: Glucose,Whole Blood 151 mg/dL (75-99)
[2021-02-05] MEDS: INSULIN REGULAR 100 UNIT in SODIUM CHLORIDE 0.9% 100 ML IV SCH (02:18)
[2021-02-05] MEDS: hydrALAZINE HCL 25 MG TAB PO PRN ×3 (02:25→20:05)
[2021-02-05 03:50] LABS: Glucose,Whole Blood 153 mg/dL (75-99)
[2021-02-05] MEDS: SODIUM CHLORIDE 0.9% 1,000 ML IV SCH ×2 (04:59→23:10)
[2021-02-05 06:13] LABS: Glucose,Whole Blood 181 mg/dL (75-99)
[2021-02-05] MEDS: INSULIN ASPART (NovoLOG) 100 UNIT/ML VIAL SQ SCH ×4 (07:21→20:05)
[2021-02-05] MEDS: IPRATROPIUM-ALBUTEROL 3 ML NEB INHALATION SCH ×4 (07:49→20:32)
[2021-02-05] MEDS: SYMBICORT 160-4.5 MCG INHALER INHALATION SCH ×2 (07:49→20:32)
[2021-02-05 07:59] LABS: Glucose,Whole Blood 196 mg/dL (75-99)
[2021-02-05] MEDS: ASPIRIN 81 MG PO SCH (08:11)
[2021-02-05] MEDS: PANTOPRAZOLE 40 MG TABLET PO SCH (08:11)
[2021-02-05] MEDS: carBAMazepine 200 MG TAB PO SCH ×2 (08:11→20:07)
[2021-02-05] MEDS: DOCUSATE 100 MG CAP PO SCH ×2 (08:11→20:05)
[2021-02-05] MEDS: methylPREDNISolone SOD SUCCI 40 MG/ML 1 ML VIAL IV SCH (08:12)
[2021-02-05] MEDS: FUROSEMIDE 20 MG TAB PO SCH (08:12)
[2021-02-05] MEDS: PIPERACILLIN-TAZOBACTAM 3.375 GM in SODIUM CHLORIDE 0.9% 100 ML IVPB SCH ×3 (08:12→23:11)
[2021-02-05] MEDS: ACETAMINOPHEN TAB 325 MG TAB PO PRN (08:16)
[2021-02-05] MEDS: NON FORMULARY DRUG (Empagliflozin [Jardiance] 25 MG Tablet) PO SCH (08:26)
[2021-02-05] MEDS: HEPARIN SODIUM,PORCINE/PF 5,000 UNIT/0.5 ML SYRINGE SQ SCH ×2 (08:27→20:05)
[2021-02-05 08:48] LABS: Basophils % (A) 0 %; Eosinophils # (A) 0.1 k/uL (0-0.7); Eosinophils % (A) 1 %; HCT 36.6 % (39.0-53.0); HGB 12.1 gm/dL (13.0-17.5); Lymphocytes # (A) 1.3 k/uL (1.0-4.8); Lymphocytes % (A) 20 %; MCH 32.5 pg (25.0-35.0); MCHC 33.2 g/dL (31.0-37.0); MCV 97.9 fL (80.0-100.0); Mean Platelet Volume 7.3; Monocytes # (A) 0.3 k/uL (0-1.0); Monocytes % (A) 4 %; Neutrophils # (A) 4.7 k/uL (1.3-7.7); Neutrophils % (A) 73 %; Platelet Count 210 k/uL (150-450); RBC 3.73 m/uL (4.30-5.90); RDW 13.2 % (11.5-15.5); WBC 6.5 k/uL (3.8-10.6)
[2021-02-05 09:05] LABS: African American GFR (CKD) >90 (>60 ml/min/1.73 sqM); Anion Gap 8 mmol/L; Blood Urea Nitrogen 8 mg/dL (9-20); Calcium 8.6 mg/dL (8.4-10.2); Carbon Dioxide 23 mmol/L (22-30); Chloride 105 mmol/L (98-107); Glucose 187 mg/dL (74-99); Non-African American GFR(CKD) >90 (>60 ml/min/1.73 sqM); Sodium 136 mmol/L (137-145)
[2021-02-05 09:09] LABS: Potassium 3.7 mmol/L (3.5-5.1)
[2021-02-05 09:58] LABS: Glucose,Whole Blood 194 mg/dL (75-99)
[2021-02-05] MEDS: LOSARTAN 50 MG TAB PO SCH (11:09)
[2021-02-05] MEDS: SERTRALINE 100 MG TAB PO SCH (11:09)
--- NOTE | 2021-02-05 11:38 | P.PN ---
Subjective Progress Note Date: 02/05/21 Principal diagnosis: Incarcerated incisional hernia Patient doing well today. Says his pain is gradually improving. He is tolerating liquids and is asking for solid foods. No nausea or vomiting. EVON drain is serosanguineous. Labs noted. Objective - Vital Signs Vital signs: Vital Signs Temp 97.9 F 02/05/21 04:00 Pulse 80 02/05/21 11:17 Resp 20 02/05/21 08:00 BP 203/101 02/05/21 08:00 Pulse Ox 97 02/05/21 08:00 Intake & Output 02/04/21 02/05/21 02/05/21 18:59 06:59 18:59 Intake Total 907.075 780.567 255.517 Output Total 845 540 475 Balance 62.075 240.567 -219.483 Weight 127.8 kg Intake: IV 20 10 Insulin Regular 100 unit 20 10 In Sodium Chloride 0.9% 100 ml @ Titrate IV .Q0M [facility] Rx#:[id number] Intake, IV Titration 467.075 770.567 15.517 Amount Insulin Regular 100 unit 47.075 30.567 15.517 In Sodium Chloride 0.9% 100 ml @ Titrate IV .Q0M [facility] Rx#:[id number] Piperacillin-Tazobactam 3 100 100 .375 gm In Sodium Chloride 0.9% 100 ml @ 25 mls/hr IVPB Q8HR [facility] Rx# :[id number] Sodium Chloride 0.9% 1, 320 640 000 ml @ 80 mls/hr IV . [id number] [facility] Rx#:[id number] Oral 420 240 Output: Drainage 20 140 0 Right Lower Abdomen 20 140 0 Urine 825 400 475 Other: Voiding Method Toilet Toilet Urinal Urinal # Bowel Movements 1 - Exam Abdomen: Soft, nondistended, incision clean and dry, EVON serosanguineous - Labs CBC & Chem 7: 02/05/21 08:20 02/05/21 08:20 Labs: Abnormal Lab Results - Last 24 Hours (Table) 02/04/21 02/04/21 02/04/21 Range/Units 12:02 13:59 15:59 RBC (4.30-5.90) m/uL Hgb (13.0-17.5) gm/dL Hct (39.0-53.0) % Sodium (137-145) mmol/L BUN (9-20) mg/dL Creatinine (0.66-1.25) mg/dL Glucose (74-99) mg/dL POC Glucose (mg/dL) 151 H 248 H 180 H (75-99) mg/dL 02/04/21 02/04/21 02/04/21 Range/Units 18:07 20:26 21:28 RBC (4.30-5.90) m/uL Hgb (13.0-17.5) gm/dL Hct (39.0-53.0) % Sodium (137-145) mmol/L BUN (9-20) mg/dL Creatinine (0.66-1.25) mg/dL Glucose (74-99) mg/dL POC Glucose (mg/dL) 228 H 100 H 109 H (75-99) mg/dL 02/04/21 02/04/21 02/05/21 Range/Units 22:02 23:36 01:26 RBC (4.30-5.90) m/uL Hgb (13.0-17.5) gm/dL Hct (39.0-53.0) % Sodium (137-145) mmol/L BUN (9-20) mg/dL Creatinine (0.66-1.25) mg/dL Glucose (74-99) mg/dL POC Glucose (mg/dL) 117 H 159 H 151 H (75-99) mg/dL 02/05/21 02/05/21 02/05/21 Range/Units 03:47 06:11 07:57 RBC (4.30-5.90) m/uL Hgb (13.0-17.5) gm/dL Hct (39.0-53.0) % Sodium (137-145) mmol/L BUN (9-20) mg/dL Creatinine (0.66-1.25) mg/dL Glucose (74-99) mg/dL POC Glucose (mg/dL) 153 H 181 H 196 H (75-99) mg/dL 02/05/21 02/05/21 02/05/21 Range/Units 08:20 08:20 09:57 RBC 3.73 L (4.30-5.90) m/uL Hgb 12.1 L (13.0-17.5) gm/dL Hct 36.6 L (39.0-53.0) % Sodium 136 L (137-145) mmol/L BUN 8 L (9-20) mg/dL Creatinine 0.41 L (0.66-1.25) mg/dL Glucose 187 H (74-99) mg/dL POC Glucose (mg/dL) 194 H (75-99) mg/dL Microbiology - Last 24 Hours (Table) 01/31/21 21:30 Blood Culture - Preliminary Blood No Growth after 96 hours 01/30/21 21:00 Blood Culture - Preliminary Blood No Growth after 120 hours 01/30/21 21:08 Blood Culture - Preliminary Blood No Growth after 120 hours Assessment and Plan (1) Incarcerated incisional hernia Narrative/Plan: Patient doing well postop bleed. Continue increasing diet as tolerated. Ambulate. Possible discharge 1-2 days. Current Visit: Yes Status: Acute Code(s): K43.0 - INCISIONAL HERNIA WITH O BSTRUCTION, WITHOUT GANGRENE SNOMED Code(s): 751135253
[2021-02-05 11:51] LABS: Glucose,Whole Blood 161 mg/dL (75-99)
[2021-02-05] MEDS ORDERED: Potassium Replacement Protocol 1 EACH MISC MISCELLANE PRN (12:55)
[2021-02-05] MEDS: POTASSIUM CHLORIDE ER 20 MEQ TAB.ER PO SCH ×2 (13:05→17:16)
--- NOTE | 2021-02-05 14:19 | P.PN ---
Subjective Progress Note Date: 02/05/21 Principal diagnosis: Chest pain, acute exacerbation of COPD 60-year-old white male patient, with over 50-vcfu-ecce smoking history, currently down to half a pack a day, does not follow with a lung specialist, he is not on any maintenance inhalers or breathing treatments, also has history of hypertension, hyperlipidemia, diabetes mellitus type 2, history of DVT, seizure disorder, history of closed head injury of unclear circumstances who came into the emergency department on 01/27/2021 for evaluation of chest pain, and diaphoresis. His EKG showed normal sinus rhythm. Patient follows with Dr. Pang for primary care services. His chest pain was central, nonradiating, a nd felt like squeezing discomfort. Had no nausea or vomiting, no fever or chills, denies any cough or phlegm production. Patient drinks about 1 beer a day 3 days a week, denies any use of illicit drugs. His history of DVT was from 3 years ago, currently not on any anticoagulation. On presentation his blood pressure was elevated, however his other vitals looked stable. No fever, his labs showed mild leukocytosis with a white count of 12.4, hemoglobin 14.5, platelet count of 254, INR of 0.9, sodium 134, depressed electrolytes were within normal limits, BUN is 14 creatinine 0.65, LFTs were within normal limits, his troponins were 0.071, 0.070, 0.056, proBNP was 332. Lipase was 30. CTA ch est was completed showing no evidence of pulmonary embolism, over there was pulmonary emphysema noted in the upper and lower lobes bilaterally. No acute lung disease. CT of the abdomen and pelvis with contrast was completed showing incarcerated ventral hernia containing transverse colon, no bowel obstruction, and there was clearing of the retroperitoneal fluid and fat stranding compared old exam. Sigmoid diverticulosis was unchanged. Patient underwent cardiac evaluation, and cardiac catheterization today on 01 29 2021 which showed minimal plaque involving the left circumflex, and elevated left ventricular end- diastolic pressure 26-30 mmHg. Patient was also seen by general surgery for incarcerated incisional hernia, with the recommendation for surgical intervention in the near future. In the meantime he is tolerating oral diet. We were asked to see the patient in evaluation possibility of pulmonary causes of his chest pain. Currently has no chest pain, he is sitting up on H2 bed, breathing comfortably, he is on room air, no cough, no chest discomfort, no phlegm production, no hemoptysis. Lung sounds are quite diminished bilaterally, no wheezing or rhonchi noted. Today's labs have been noted showing white blood cell, 12.2, hemoglobin of 13.3, sodium is 132, the rest of electrolytes were within normal limits, BUN of 7 creatinine 0.45. On 01/31/2021 patient seen in follow-up on selective care unit, this morning around 1 in the morning rapid response team was called for evaluation of sudden onset of difficulty in breathing. Patient he did have fevers, and elevated blood pressure. He was also desaturating to below 80% on room air, he was cyanotic, bronchospastic, and using accessory muscles of respirations. The was no leg edema or tenderness of calf muscles. Patient was suspected to have flash pulmonary edema with elevated blood pressure and he received a dose of IV Lasix he was placed on a nonrebreather mask, he was given a dose of IV Solu-Medrol, Pepcid and Benadryl for a suspected ALLERGIC reaction. Chest x-ray was completed and was unremarkable. Subsequently his breathing improved in response to diuretics, steroids, and oxygen. he was placed on a combination of azithromycin and Zosyn for empiric antibiotic coverage, he does have underlying COPD, which is active right now, he continues on Solu-Medrol 60 mg every 6 hours, he is on bronchodilators, and he continues on empiric antibiotics. Currently he is resting comfortably in bed, he continues on liters of oxygen his pulse ox is 94%, he is afebrile, his labs have been reviewed, his white blood cell count is 4.3, hemoglobin is 13.7, sodium is 133, potassium 3.9, chloride is 97, CO2 was 22, B1 is 22, creatinine 0.96. ProBNP was 593. Sounds still reveal diminished breath sounds with diffuse wheezing on forced exhale expiration maneuver. On 02/01/2021 patient seen in follow-up on [facility] care unit, he is complaining of right upper quadrant abdominal pain, tenderness with palpation, CT chest abdomen and pelvis has been completed showing possibility acute cholecystitis, denied any chest pain overnight, he is resting in bed, breathing comfortably, related to use of oxygen, pulse ox is 96%, no cough or congestion, no wheezing, his been afebrile overnight, slightly tachycardic, blood pressures been stable, follow-up chest x-ray today shows cardiomegaly and low lung volumes without new acute pulmonary process. Patient is on Zosyn, we added doxycycline yesterday, however in view of possibility of acute cholecystitis, we will stop The doxycycline and continue with IV Zosyn for now. Gallbladder ultrasound has been completed showing gallbladder wall thickening with surrounding fluid and a 1.8 cm tone, findings were concerning for acute cholecystitis, despite the negative sonographic signs. Gen. surgery has been consulted. Today's labs have been reviewed, white blood cell, is 10.9, hemoglobin is 13, sodium is 133, potassium is 4.0, chloride is 101, CO2 is 18, BUN is 46, creatinine is 1.2. LFTs were within normal limits, total bilirubin was 0.4, lipase was low at 15, and amylase was 33. Continues Symbicort, breathing treatments, and IV steroids at 60 mg every 6 hours. On 02/03/2021 is seen in follow-up on selective care unit, he is postoperative day #1, status post open cholecystectomy, he is resting comfortably in bed today, denies any acute distress, having some incisional abdominal pain, but no acute distress, lung sounds are clear to auscultation on today's exam, he is currently on 2 L of oxygen, his pulse ox is 95%, no fever or chills, vital signs have been stable, no new chest x-ray today, teens on nebulized bronchodilators, he is on Symbicort, nebulized DuoNeb, and IV Solu-Medrol 40 mg every 8 hours. He is currently receiving IV fluids with 0.9, seen at a rate of 89 per hour, and he is on insulin infusion at 5 units per hour, he is receiving when necessary morphine for incisional pain, he is on GI and DVT prophylaxis, today's labs have been reviewed, white blood cell count is 6.7, hemoglobin is 11.7, electrolytes and renal profile were unremarkable, he is on Zosyn for antibiotic coverage. His been started on clear liquid diet. Blood cultures remain negative. On 02/05/2021 patient seen in follow-up on selective care unit. Today is postoperative day #3 status post open cholecystectomy. He is sitting up in the recliner, breathing comfortably, room air pulse ox is 94%, no fever or chills, vital signs have been stable, breathing has significantly improved, no complaints of chest discomfort, lung sounds are clear, no wheezing, no rhonchi. No new chest x-ray today. Today's labs have been reviewed, his white blood cell count is 6.5, hemoglobin is 12.1, electrolytes are within normal limits, B1 was 8 and creatinine 0.41. Patient remains on Zosyn, he is on Symbicort and prednisone. Objective - Vital Signs Vital signs: Vital Signs Temp 97.9 F 02/05/21 11:55 Pulse 80 02/05/21 11:55 Resp 20 02/05/21 11:55 BP 165/78 02/05/21 11:55 Pulse Ox 94 L 02/05/21 11:55 Intake & Output 02/04/21 02/05/21 02/05/21 18:59 06:59 18:59 Intake Total 907.075 780.567 500.184 Output Total 845 540 475 Balance 62.075 240.567 25.184 Weight 127.8 kg Intake: IV 20 10 Insulin Regular 100 unit 20 10 In Sodium Chloride 0.9% 100 ml @ Titrate IV .Q0M ANDRE Rx#:[id number] Intake, IV Titration 467.075 770.567 20.184 Amount Insulin Regular 100 unit 47.075 30.567 20.184 In Sodium Chloride 0.9% 100 ml @ Titrate IV .Q0M ANDRE Rx#:[id number] Piperacillin-Tazobactam 3 100 100 .375 gm In Sodium Chloride 0.9% 100 ml @ 25 mls/hr IVPB Q8HR ANDRE Rx# :[id number] Sodium Chloride 0.9% 1, 320 640 000 ml @ 80 mls/hr IV . [id number] ANDRE Rx#:[id number] Oral 420 480 Output: Drainage 20 140 0 Right Lower Abdomen 20 140 0 Urine 825 400 475 Other: Voiding Method Toilet Toilet Urinal Urinal # Bowel Movements 1 - Exam GENERAL EXAM: Alert, very pleasant, 60-year-old white male, sitting up in his to bed, he is currently on room air with a pulse ox of 94%, comfortable in no apparent distress. HEAD: Normocephalic/atraumatic. EYES: Normal reaction of pupils, equal size. Conjunctiva pink, sclera white. NOSE: Clear with pink turbinates. THROAT: No erythema or exudates. NECK: No masses, no JVD, no thyroid enlargement, no adenopathy. CHEST: No chest wall deformity. Symmetrical expansion. LUNGS: Equal air entry with no crackles, wheeze, rhonchi or dullness. CVS: Regular rate and rhythm, normal S1 and S2, no gallops, no murmurs, no rubs ABDOMEN: Soft, nontender. No hepatosplenomegaly, normal bowel sounds, no guarding or rigidity. Transverse abd. incision is covered with a surgical dressing, clean dry and intact EXTREMITIES: No clubbing, no edema, no cyanosis, 2+ pulses and upper and lower extremities. MUSCULOSKELETAL: Muscle strength and tone normal. SPINE: No scoliosis or deformity SKIN: No rashes CENTRAL NERVOUS SYSTEM: Alert and oriented -3. No focal deficits, tone is normal in all 4 extremities. PSYCHIATRIC: Alert and oriented -3. Appropriate affect. Intact judgment and insight. - Labs CBC & Chem 7: 02/05/21 08:20 02/05/21 08:20 Labs: Abnormal Lab Results - Last 24 Hours (Table) 02/04/21 02/04/21 02/04/21 Range/Units 15:59 18:07 20:26 RBC (4.30-5.90) m/uL Hgb (13.0-17.5) gm/dL Hct (39.0-53.0) % Sodium (137-145) mmol/L BUN (9-20) mg/dL Creatinine (0.66-1.25) mg/dL Glucose (74-99) mg/dL POC Glucose (mg/dL) 180 H 228 H 100 H (75-99) mg/dL 02/04/21 02/04/21 02/04/21 Range/Units 21:28 22:02 23:36 RBC (4.30-5.90) m/uL Hgb (13.0-17.5) gm/dL Hct (39.0-53.0) % Sodium (137-145) mmol/L BUN (9-20) mg/dL Creatinine (0.66-1.25) mg/dL Glucose (74-99) mg/dL POC Glucose (mg/dL) 109 H 117 H 159 H (75-99) mg/dL 02/05/21 02/05/21 02/05/21 Range/Units 01:26 03:47 06:11 RBC (4.30-5.90) m/uL Hgb (13.0-17.5) gm/dL Hct (39.0-53.0) % Sodium (137-145) mmol/L BUN (9-20) mg/dL Creatinine (0.66-1.25) mg/dL Glucose (74-99) mg/dL POC Glucose (mg/dL) 151 H 153 H 181 H (75-99) mg/dL 02/05/21 02/05/21 02/05/21 Range/Units 07:57 08:20 08:20 RBC 3.73 L (4.30-5.90) m/uL Hgb 12.1 L (13.0-17.5) gm/dL Hct 36.6 L (39.0-53.0) % Sodium 136 L (137-145) mmol/L BUN 8 L (9-20) mg/dL Creatinine 0.41 L (0.66-1.25) mg/dL Glucose 187 H (74-99) mg/dL POC Glucose (mg/dL) 196 H (75-99) mg/dL 02/05/21 02/05/21 Range/Units 09:57 11:50 RBC (4.30-5.90) m/uL Hgb (13.0-17.5) gm/dL Hct (39.0-53.0) % Sodium (137-145) mmol/L BUN (9-20) mg/dL Creatinine (0.66-1.25) mg/dL Glucose (74-99) mg/dL POC Glucose (mg/dL) 194 H 161 H (75-99) mg/dL Microbiology - Last 24 Hours (Table) 01/31/21 21:30 Blood Culture - Preliminary Blood No Growth after 96 hours 01/30/21 21:00 Blood Culture - Preliminary Blood No Growth after 120 hours 01/30/21 21:08 Blood Culture - Preliminary Blood No Growth after 120 hours Assessment and Plan Plan: Assessment: #1. Chest pain with mild troponin elevation, consistent with non-ST elevated myocardial infarction, status post heart catheterization on 01/29/2021 showing minimal plaque involving the left circumflex and elevated LVEDP of 26-30 mmHg. CTA chest ruled out possibility of pulmonary embolism #2. Acute exacerbation of COPD, with the sudden onset of shortness of breath wheezing, possibility of an ALLERGIC reaction is not completely excluded although it is not clear what may have precipitated the attack. Patient is currently on IV steroids, he was started on antibiotics in the form of Zosyn and azithromycin, and nebulized bronchodilators, he was also given a dose of IV Lasix. Currently improved breathing, chest x-ray is unremarkable #3. Evidence of pulmonary emphysema on CTA chest from extensive history of smoking #4. COPD, not active at this time, severity is not known, but not oxygen dependent at baseline #5. [id number] history of smoking, chronic and ongoing, currently down to half a pack a day #6. Diabetes mellitus type 2 #7. Hypertension #8. Hyperlipidemia #9. History of closed head injury #10. Seizure disorder #11. Incarcerated ventral hernia containing transverse colon, no bowel o bstruction, patient will need surgery in the near future, general surgery is following #12. Acute cholecystitis, ultrasound of the gallbladder showed gallbladder wall thickening with surrounding fluid and 1.8 cm stone, status post open cholecystectomy lysis of adhesions, postoperative day #3 #13. Steroid induced hyperglycemia Plan: Patient is doing well, on postoperative day #3 status post open cholecystectomy Encourage deep breathing and coughing Patient has been transitioned to oral prednisone He remains on IV Zosyn Remains on nebulized bronchodilators No acute events overnight Breathing comfortably Currently on room air Possible discharge home in the next 24 hours if cleared by surgery and medicine I performed a history & physical examination of the patient and discussed their management with my nurse practitioner, Yahaira Morrison. I reviewed the nurse practitioner's note and agree with the documented findings and plan of care. Lung sounds are positive for diminished breath sounds throughout the lung figueredo. The findings and the impression was discussed with the patient. I attest to the documentation by the nurse practitioner. Time with Patient: Less than 30
[2021-02-05 16:37] LABS: Glucose,Whole Blood 184 mg/dL (75-99)
--- NOTE | 2021-02-05 18:29 | P.PN ---
Subjective Progress Note Date: 02/05/21 This is a pleasant 60 years old male with past medical history of diabetes mellitus, deep venous thrombosis, hypertension, hyperlipidemia, seizure disorder, closed head injury. His patient of Dr. Pang Presents with severe chest pain, 60/10, now feels a little better almost disappeared as 0/10. Central, nonradiating pain. Feels like squeezing 02/03/2021 Patient is seen in follow-up on selective care unit, status post open cholecystectomy; POD #1, he is resting comfortably in bed today, denies any acute distress, having some incisional abdominal pain, but no acute distress; currently on 2 L of oxygen, his pulse ox is 95%, no fever or chills Vital signs have been stable, no new chest x-ray today, patient remains on nebulized bronchodilators, Symbicort, nebulized DuoNeb, and IV Solu-Medrol 40 mg every 8 hours. He is currently receiving IV fluids with 0.9, seen at a rate of 89 per hour, and he is on insulin infusion at 5 units per hour, he is receiving when necessary morphine for incisional pain, he is on GI and DVT prophylaxis, today's labs have been reviewed, white blood cell count is 6.7, hemoglobin is 11.7, electrolytes and renal profile were unremarkable, he is on Zosyn for antibiotic coverage. His been started on clear liquid diet. Blood cultures remain negative. Patient is encouraged to continue with incentive spirometry along with deep breathing and coughing; remains on IV Zosyn; pulmonary recommending to continue to taper steroids down to 40 mg every 12 hours 02/04/2021 Patient is seen and evaluated in follow-up on the selective care unit. POD #2. Status post open cholecystectomy. He is currently seen resting comfortably in bed. Awake and alert in no acute distress. He is maintaining O2 saturations in the 90s on room air. He's been afebrile. Blood cultures reveal no growth. Glucose 151. He remains on DuoNeb inhalations, Symbicort, IV Timentin. Remains on a insulin drip at 2.5 units per hour. 0.9 normal saline at 80 MLS per hour. Antibiotics in the form of Zosyn. Remains on clear liquid diet. Patient encouraged again to use incentive spirometer; we will continue with bronchodilator therapy; Gen. surgery is following and recommending to advance diet with possible discharge in next 24 hours 02/05/2021 Patient is evaluated at the bedside. He is sitting up, he currently denies any abdominal pain, chest pain, palpitations, shortness breath. He does report some mild cough with sputum production. He states is chronic for him. He states that he is down to half pack a day smoking, declines nicotine patch at this time. Patient is postop day #3 from an open cholecystectomy. He does have a EVON drain still in place. He is passing gas, positive bowel sounds however he denies having a bowel movement. Patient was transitioned to oral steroids, and NovoLog sliding scale. Continue to monitor blood sugars. Patient received a regular diet today transition from clears, denies nausea/vomiting. Patient's blood pressure was elevated this morning, 201 systolic resumed on losartan and sertraline. Blood pressure is now 165/78. ROS Constitutional: Denied any fatigue denied any fever. Cardio vascular: denied any chest pain, palpitations Gastrointestinal denied any nausea vomiting, reports passing flatus, denies BM Pulmonary: Denied any shortness of breath cough Neurologic denied any new focal deficits All inpatient medications were reviewed and appropriate changes in these medications as dictated in the interval history and assessment and plan. PHYSICAL EXAMINATION: GENERAL: The patient is alert and oriented x3, not in any acute distress. Well developed, well nourished. HEENT: Pupils are round and equally reacting to light. EOMI. No scleral icterus. No conjunctival pallor. Normocephalic, atraumatic. No pharyngeal erythema. No thyromegaly. CARDIOVASCULAR: S1 and S2 present. No murmurs, rubs, or gallops. PULMONARY: Chest is clear to auscultation, no wheezing or crackles. ABDOMEN: Soft, nontender, nondistended, normoactive bowel sounds. No palpable o rganomegaly. MUSCULOSKELETAL: No joint swelling or deformity. EXTREMITIES: No cyanosis, clubbing, or pedal edema. NEUROLOGICAL: Gross neurological examination did not reveal any focal deficits. SKIN: No rashes. Surgical incision and EVON drain in place Left abdomen Assessment and plan Acute cholecystitis POD #3 open cholecytectomy with lysis of adhesions Chest pain, with negative cardiac cath and negative CTA for pulmonary embolism. Resolved Hypertension with urgency on admission . Hypertensive today 201 systolic, resumed all home medications Abdominal hernia, patient with incarcerated ventral hernia containing transverse colon. Surgery following Pulmonary emphysema Acute COPD exacerbation, etiology unkown, improved, transitioned to oral steroids Hyperlipidemia Diabetes mellitus with hyperglycemia, exacerbated by IV steroids - transitioned off the ins gtt today. History of deep venous thrombosis, not on anticoagulation History of seizure disorder History of closed head injury Plan: This is a pleasant 60 years old male who presents with chest pain and hypertension Continue with Zosyn,and IV fluid, POD #3 susan Resume His home medications and monitor his blood pressure carefully. Cardiology consult, with negative cardiac cath Pulmonary team consult Transition to oral steriods, d/c insulin gtt Labs and medication were reviewed. Diet advanced per surgical team today. Continue all other medications. Replace Lytes as needed per protocol. DVT prophylaxis: Subcutaneous heparin GI Prophylaxis: Ppi Plan for DC in the next 24 to 48 hours. Objective - Vital Signs Vital signs: Vital Signs Temp 97.9 F 02/05/21 04:00 Pulse 88 02/05/21 08:02 Resp 20 02/05/21 08:00 BP 203/101 02/05/21 08:00 Pulse Ox 97 02/05/21 08:00 Intake & Output 02/04/21 02/05/21 02/05/21 18:59 06:59 18:59 Intake Total 907.075 780.567 7.467 Output Total 845 540 0 Balance 62.075 240.567 7.467 Weight 127.8 kg Intake: IV 20 10 Insulin Regular 100 unit 20 10 In Sodium Chloride 0.9% 100 ml @ Titrate IV .Q0M ANDRE Rx#:[id number] Intake, IV Titration 467.075 770.567 7.467 Amount Insulin Regular 100 unit 47.075 30.567 7.467 In Sodium Chloride 0.9% 100 ml @ Titrate IV .Q0M ANDRE Rx#:[id number] Piperacillin-Tazobactam 3 100 100 .375 gm In Sodium Chloride 0.9% 100 ml @ 25 mls/hr IVPB Q8HR ANDRE Rx# :[id number] Sodium Chloride 0.9% 1, 320 640 000 ml @ 80 mls/hr IV . [id number] ANDRE Rx#:[id number] Oral 420 Output: Drainage 20 140 0 Right Lower Abdomen 20 140 0 Urine 825 400 Other: Voiding Method Toilet Toilet Urinal Urinal # Bowel Movements 1 - Labs CBC & Chem 7: 02/05/21 08:20 02/05/21 08:20 Labs: Abnormal Lab Results - Last 24 Hours (Table) 02/04/21 02/04/21 02/04/21 Range/Units 10:06 12:02 13:59 RBC (4.30-5.90) m/uL Hgb (13.0-17.5) gm/dL Hct (39.0-53.0) % Sodium (137-145) mmol/L BUN (9-20) mg/dL Creatinine (0.66-1.25) mg/dL Glucose (74-99) mg/dL POC Glucose (mg/dL) 152 H 151 H 248 H (75-99) mg/dL 02/04/21 02/04/21 02/04/21 Range/Units 15:59 18:07 20:26 RBC (4.30-5.90) m/uL Hgb (13.0-17.5) gm/dL Hct (39.0-53.0) % Sodium (137-145) mmol/L BUN (9-20) mg/dL Creatinine (0.66-1.25) mg/dL Glucose (74-99) mg/dL POC Glucose (mg/dL) 180 H 228 H 100 H (75-99) mg/dL 02/04/21 02/04/21 02/04/21 Range/Units 21:28 22:02 23:36 RBC (4.30-5.90) m/uL Hgb (13.0-17.5) gm/dL Hct (39.0-53.0) % Sodium (137-145) mmol/L BUN (9-20) mg/dL Creatinine (0.66-1.25) mg/dL Glucose (74-99) mg/dL POC Glucose (mg/dL) 109 H 117 H 159 H (75-99) mg/dL 02/05/21 02/05/21 02/05/21 Range/Units 01:26 03:47 06:11 RBC (4.30-5.90) m/uL Hgb (13.0-17.5) gm/dL Hct (39.0-53.0) % Sodium (137-145) mmol/L BUN (9-20) mg/dL Creatinine (0.66-1.25) mg/dL Glucose (74-99) mg/dL POC Glucose (mg/dL) 151 H 153 H 181 H (75-99) mg/dL 02/05/21 02/05/21 02/05/21 Range/Units 07:57 08:20 08:20 RBC 3.73 L (4.30-5.90) m/uL Hgb 12.1 L (13.0-17.5) gm/dL Hct 36.6 L (39.0-53.0) % Sodium 136 L (137-145) mmol/L BUN 8 L (9-20) mg/dL Creatinine 0.41 L (0.66-1.25) mg/dL Glucose 187 H (74-99) mg/dL POC Glucose (mg/dL) 196 H (75-99) mg/dL Microbiology - Last 24 Hours (Table) 01/31/21 21:30 Blood Culture - Preliminary Blood No Growth after 96 hours 01/30/21 21:00 Blood Culture - Preliminary Blood No Growth after 120 hours 01/30/21 21:08 Blood Culture - Preliminary Blood No Growth after 120 hours
[2021-02-05 19:54] LABS: Glucose,Whole Blood 171 mg/dL (75-99)
[2021-02-05] MEDS: ATORVASTATIN 40 MG TAB PO SCH (20:04)
[2021-02-05] MEDS: ISOSORBIDE MONONITRATE ER 60 MG TAB.ER.24H PO SCH (20:05)
[2021-02-05] MEDS: ALPRAZolam 0.5 MG TAB PO PRN (20:05)
--- NOTE | 2021-02-06 05:41 | PN ---
PROGRESS NOTE DATE OF SERVICE: 02/05/2021 REASON FOR FOLLOWUP: Fever secondary to cholecystitis. INTERVAL HISTORY: The patient is afebrile. He is breathing comfortably. Denies having any chest pain, shortness of breath or cough. No abdominal pain. No vomiting or diarrhea. PHYSICAL EXAMINATION: Blood pressure 193/93 with a pulse of 76, temperature 99.1. He is 94% on room air. General description is a middle-aged male up in the bed in no distress. Respiratory system: Unlabored breathing, decreased intensity of breath sounds. No wheeze. Heart S1, S2. Regular rate and rhythm. Abdomen soft, no tenderness. LABS: Hemoglobin is 12.1, white count 6.5, BUN of 8, creatinine 0.41. DIAGNOSTIC IMPRESSION AND PLAN: Patient with fever secondary to acute cholecystitis status post cholecystectomy. Patient is covered with Zosyn to continue. Transition to oral antibiotic on discharge and monitor clinical course closely. MMODL / IJN: [id number] /
[2021-02-06 05:55] LABS: Glucose,Whole Blood 194 mg/dL (75-99)
[2021-02-06] MEDS: SODIUM CHLORIDE 0.9% 1,000 ML IV SCH (06:16)
[2021-02-06] MEDS: INSULIN ASPART (NovoLOG) 100 UNIT/ML VIAL SQ SCH ×2 (06:38→13:04)
[2021-02-06] MEDS: SYMBICORT 160-4.5 MCG INHALER INHALATION SCH (07:53)
[2021-02-06] MEDS: IPRATROPIUM-ALBUTEROL 3 ML NEB INHALATION SCH ×3 (07:53→14:56)
[2021-02-06] MEDS: PIPERACILLIN-TAZOBACTAM 3.375 GM in SODIUM CHLORIDE 0.9% 100 ML IVPB SCH (08:49)
[2021-02-06] MEDS: FUROSEMIDE 20 MG TAB PO SCH (08:50)
[2021-02-06] MEDS: SERTRALINE 100 MG TAB PO SCH (08:50)
[2021-02-06] MEDS: PANTOPRAZOLE 40 MG TABLET PO SCH (08:50)
[2021-02-06] MEDS: DOCUSATE 100 MG CAP PO SCH ×2 (08:50→09:02)
[2021-02-06] MEDS: carBAMazepine 200 MG TAB PO SCH (08:50)
[2021-02-06] MEDS: ASPIRIN 81 MG PO SCH (08:50)
[2021-02-06] MEDS: LOSARTAN 50 MG TAB PO SCH (08:50)
[2021-02-06] MEDS: HEPARIN SODIUM,PORCINE/PF 5,000 UNIT/0.5 ML SYRINGE SQ SCH (08:54)
[2021-02-06] MEDS ORDERED: predniSONE 20 MG TAB PO SCH (09:00)
[2021-02-06 09:57] LABS: African American GFR (CKD) >90 (>60 ml/min/1.73 sqM); Anion Gap 6 mmol/L; Blood Urea Nitrogen 10 mg/dL (9-20); Calcium 8.5 mg/dL (8.4-10.2); Carbon Dioxide 25 mmol/L (22-30); Chloride 106 mmol/L (98-107); Glucose 157 mg/dL (74-99); Non-African American GFR(CKD) >90 (>60 ml/min/1.73 sqM); Sodium 137 mmol/L (137-145)
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
[2021-02-06 11:36] VITALS: BP 174/85; RESP 18; TEMP 98
[2021-02-06 11:58] LABS: Glucose,Whole Blood 178 mg/dL (75-99)
[2021-02-06] MEDS: hydrALAZINE HCL 25 MG TAB PO PRN (13:04)
[2021-02-06] MEDS: NON FORMULARY DRUG (Empagliflozin [Jardiance] 25 MG Tablet) PO SCH (13:06)
[2021-02-06 15:10] VITALS: PULSE 78
--- NOTE | 2021-02-06 16:18 | P.PN ---
Subjective Progress Note Date: 02/06/21 Principal diagnosis: Incarcerated incisional hernia Patient doing well today. Says his pain is minimal. Tolerating diet. No nausea or vomiting. Objective - Vital Signs Vital signs: Vital Signs Temp 98 F 02/06/21 11:32 Pulse 78 02/06/21 15:10 Resp 18 02/06/21 11:32 BP 174/85 02/06/21 11:32 Pulse Ox 92 L 02/06/21 11:32 Intake & Output 02/05/21 02/06/21 02/06/21 18:59 06:59 18:59 Intake Total 740.184 100 420 Output Total 475 615 Balance 265.184 100 -195 Weight 110.1 kg Intake: Intake, IV Titration 20.184 100 Amount Insulin Regular 100 unit 20.184 In Sodium Chloride 0.9% 100 ml @ Titrate IV .Q0M [facility] Rx#:[id number] Piperacillin-Tazobactam 3 100 .375 gm In Sodium Chloride 0.9% 100 ml @ 25 mls/hr IVPB Q8HR [facility] Rx# :[id number] Oral 720 420 Output: Drainage 0 15 Right Lower Abdomen 0 15 Urine 475 600 Other: Voiding Method Toilet Urinal # Voids 1 1 # Bowel Movements 1 - Exam Abdomen: Soft, nondistended, incision clean and dry, EVON serosanguineous - Labs CBC & Chem 7: 02/05/21 08:20 02/06/21 09:02 Labs: Abnormal Lab Results - Last 24 Hours (Table) 02/05/21 02/05/21 02/06/21 Range/Units 16:30 19:50 05:53 Creatinine (0.66-1.25) mg/dL Glucose (74-99) mg/dL POC Glucose (mg/dL) 184 H 171 H 194 H (75-99) mg/dL 02/06/21 02/06/21 Range/Units 09:02 11:56 Creatinine 0.41 L (0.66-1.25) mg/dL Glucose 157 H (74-99) mg/dL POC Glucose (mg/dL) 178 H (75-99) mg/dL Microbiology - Last 24 Hours (Table) 01/31/21 21:30 Blood Culture - Preliminary Blood No Growth after 120 hours 01/30/21 21:08 Blood Culture - Final Blood No Growth after 144 hours 01/30/21 21:00 Blood Culture - Final Blood No Growth after 144 hours Assessment and Plan (1) Incarcerated incisional hernia Narrative/Plan: Patient doing well at this time. We will have EVON drain removed at this time. May discharge. Follow-up one week. Current Visit: Yes Status: Acute Code(s): K43.0 - INCISIONAL HERNIA WITH OBSTRUCTION, WITHOUT GANGRENE SNOMED Code(s): 060157687
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
--- NOTE | 2021-02-06 17:24 | PN ---
PROGRESS NOTE DATE OF SERVICE: 02/06/2021 REASON FOR FOLLOWUP: Fever secondary cholecystitis. INTERVAL HISTORY: The patient is afebrile. The patient is breathing comfortably. Denies having any chest pain, shortness of breath or cough. No nausea, no vomiting. No abdominal pain or diarrhea. He has been tolerating his diet. PHYSICAL EXAMINATION: Blood pressure 174/85, pulse of 84, temperature 98. He is 92% on room air. GENERAL DESCRIPTION: General description is a middle-aged male lying in bed in no distress. RESPIRATORY SYSTEM: Unlabored breathing. Clear to auscultation anteriorly. HEART: S1, S2. Regular rate and rhythm. ABDOMEN: Soft. No tenderness. LABS: BUN of 10, creatinine 0.41. Culture has been negative. DIAGNOSTIC IMPRESSION AND PLAN: Patient with a fever secondary to cholecystitis, status post cholecystectomy. Culture has been negative. White count normalized. Will give a short course of oral Augmentin on discharge and close outpatient followup. MMODL / IJN: [id number] /
== END 2021-02-06 17:09 | disposition home or self-care (01) | DRG 414 ==
LOC: EC 23:22 → 6NMEDSUR 01-28 01:14 → 3SCARD 01-28 11:42 → OBSVTOIN 01-29 16:01 → 3SCARD 01-31 22:52
PROVIDERS: ADMIT Internal Medicine; ATTEND Internal Medicine
PROC: B2111ZZ Fluoroscopy of Multiple Coronary Arteries using Low Osmolar Contrast (ICD-10-PCS; 2021-01-28)
PROC: 4A023N7 Measurement of Cardiac Sampling and Pressure, Left Heart, Percutaneous Approach (ICD-10-PCS; principal; 2021-01-28 12:30)
PROC: 0FT40ZZ Resection of Gallbladder, Open Approach (ICD-10-PCS; 2021-02-02)
PROC: 0DNW0ZZ Release Peritoneum, Open Approach (ICD-10-PCS; 2021-02-02)
DX: K81.0 Acute cholecystitis (principal); J96.01 Acute respiratory failure with hypoxia; J81.0 Acute pulmonary edema; K43.0 Incisional hernia with obstruction, without gangrene; I11.9 Hypertensive heart disease without heart failure; I25.10 Atherosclerotic heart disease of native coronary artery without angina pectoris; J43.9 Emphysema, unspecified; Z20.822 Contact with and (suspected) exposure to COVID-19; Z71.6 Tobacco abuse counseling; K66.0 Peritoneal adhesions (postprocedural) (postinfection); I16.0 Hypertensive urgency; G40.909 Epilepsy, unspecified, not intractable, without status epilepticus; K57.30 Diverticulosis of large intestine without perforation or abscess without bleeding; T38.0X5A Adverse effect of glucocorticoids and synthetic analogues, initial encounter; E11.649 Type 2 diabetes mellitus with hypoglycemia without coma; E11.65 Type 2 diabetes mellitus with hyperglycemia; E78.5 Hyperlipidemia, unspecified; F17.210 Nicotine dependence, cigarettes, uncomplicated; R01.1 Cardiac murmur, unspecified; R23.0 Cyanosis; R53.1 Weakness; G31.84 Mild cognitive impairment of uncertain or unknown etiology; G47.30 Sleep apnea, unspecified; I25.2 Old myocardial infarction; Z87.820 Personal history of traumatic brain injury; Z79.51 Long term (current) use of inhaled steroids; Z79.52 Long term (current) use of systemic steroids; Z79.82 Long term (current) use of aspirin; Z79.84 Long term (current) use of oral hypoglycemic drugs; Z79.899 Other long term (current) drug therapy; Z86.718 Personal history of other venous thrombosis and embolism; S09.90XA Unspecified injury of head, initial encounter; X58.XXXA Exposure to other specified factors, initial encounter; Z82.49 Family history of ischemic heart disease and other diseases of the circulatory system
CPT/HCPCS: 36415; 36600; 71045; 71250; 71275; 74176; 74177; 76705; 80048; 80051; 80053; 80061; 81003; 82150; 82550; 82565; 82805; 83036; 83605; 83690; 83735; 83880; 84145; 84484; 84520; 85025; 85610; 85730; 87040; 87635; 88304; 93005; 93306; 93458; 94640; 94760; 96361; 96374; 99285

== ENCOUNTER 2023-01-23 22:58 | Observation (INO) | payer MEDICARE, OTHER ==
[2023-01-24 00:09] LABS: Basophils % (A) 0 %; Eosinophils # (A) 0.1 k/uL (0-0.7); Eosinophils % (A) 1 %; HCT 48.3 % (39.0-53.0); HGB 16.5 gm/dL (13.0-17.5); Lymphocytes # (A) 2.2 k/uL (1.0-4.8); Lymphocytes % (A) 21 %; MCH 32.9 pg (25.0-35.0); MCHC 34.2 g/dL (31.0-37.0); MCV 96.2 fL (80.0-100.0); Mean Platelet Volume 7.7; Monocytes # (A) 0.5 k/uL (0-1.0); Monocytes % (A) 5 %; Neutrophils # (A) 7.4 k/uL (1.3-7.7); Neutrophils % (A) 71 %; Platelet Count 173 k/uL (150-450); RBC 5.02 m/uL (4.30-5.90); RDW 14.1 % (11.5-15.5); WBC 10.5 k/uL (3.8-10.6)
[2023-01-24 00:18] LABS: African American GFR (CKD) >90 (>60 ml/min/1.73 sqM); Anion Gap 19 mmol/L; Blood Urea Nitrogen 9 mg/dL (9-20); Calcium 9.4 mg/dL (8.4-10.2); Carbon Dioxide 18 mmol/L (22-30); Chloride 107 mmol/L (98-107); Glucose 84 mg/dL (74-99); Non-African American GFR(CKD) >90 (>60 ml/min/1.73 sqM); Potassium 3.8 mmol/L (3.5-5.1); Sodium 144 mmol/L (137-145)
[2023-01-24 00:49] LABS: Alcohol 368 mg/dL
[2023-01-24 01:30] LABS: Carbamazepine (Tegretol) 8.2 ug/mL
[2023-01-24] MEDS ORDERED: NALOXONE 0.4 MG/ML 1 ML VIAL IV PRN (01:50)
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
[2023-01-24] MEDS ORDERED: THIAMINE 100 MG/ML 2 ML VIAL IM STA (01:52)
[2023-01-24] MEDS ORDERED: LORazepam 1 MG TAB PO PRN ×4 (01:52)
[2023-01-24] MEDS ORDERED: LORazepam 0.5 MG TAB PO PRN (01:52)
[2023-01-24] MEDS: SODIUM CHLORIDE 0.9% 1,000 ML IV SCH ×2 (02:39→11:08)
[2023-01-24] MEDS: carBAMazepine 200 MG TAB PO SCH ×2 (08:16→21:48)
[2023-01-24] MEDS ORDERED: RX INFO: IV CONTRAST WAS GIVEN 1 EACH MISC MISCELLANE PRN (12:41)
[2023-01-24] MEDS ORDERED: cloNIDine HCL 0.1 MG TAB PO PRN (12:49)
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
--- NOTE | 2023-01-24 13:16 | HP ---
HISTORY AND PHYSICAL CHIEF COMPLAINT: Seizure disorder. HISTORY OF PRESENT ILLNESS: This is a 62-year-old gentleman with a past medical history of diabetes mellitus type 2, was drinking heavily up to 5th. The patient apparently had a generalized tonic- clonic seizure. The patient came to [facility] and admitted for further evaluation and treatment. Alcohol level of 368. The patient apparently had seizure about 1 year ago. No fever, no cough. PAST MEDICAL HISTORY: Reviewed include diabetes, DVT, hypertension, hyperlipidemia, rest of the history and rest of the chart is also reviewed. HOME MEDICATIONS: Reviewed, Glucophage, rest of the medications noted. ALLERGIES: None. FAMILY HISTORY: History of myocardial infarction. SOCIAL HISTORY: Alcohol REVIEW OF SYSTEMS: A 14-point review is negative except as mentioned. PHYSICAL EXAMINATION: VITAL SIGNS: Pulse is 108, blood pressure 190/80, respirations 16. HEENT: Conjunctivae normal. NECK: No jugular venous distention. CARDIOVASCULAR: S1, S2. RESPIRATIONS: Clear to auscultation. ABDOMEN: Soft. LEGS: No edema, no swelling. NERVOUS SYSTEM: No focal deficit. LABORATORY DATA: Reviewed. ASSESSMENT: 1. Acute alcohol intoxication and early delirium tremens. 2. Seizure disorder, generalized, chronic, possibly breakthrough seizures. 3. Diabetes. 4. DVT. 5. Hypertension. 6. Hyperlipidemia. 7. Multiple medical issues. RECOMMENDATIONS AND DISCUSSION: This 62-year-old gentleman presented with multiple complex medical issues, we will monitor the patient closely. Continue the current medications. The patient is going to active DTs. I would recommend CIWA protocol also. Resume the home medications. Neurology consultation, neurovascular for seizure precautions. Also recommend CT scan and basic neurovascular workup. I would recommend the patient to stay as inpatient because of above-mentioned multiple complex medical issues. admission will last for more than 2 nights. Prognosis guarded. MMODL / IJN: [id number] / [facility]ITALJose Enrique
--- NOTE | 2023-01-24 14:06 | CT ---
EXAMINATION TYPE: CT brain wo con CT DLP: 1106 mGycm, Automated exposure control for dose reduction was used. DATE OF EXAM: 01/24/2023 1:58 PM COMPARISON: 03/27/2018. CLINICAL INDICATION:Male, 62 years old with history of stroke, TECHNIQUE: Brain: Axial CT images of the brain were obtained with coronal and sagittal reformats created and rev iewed. Contrast used: None. Oral contrast used: None. FINDINGS: Brain: Extra-axial spaces: No abnormal extra-axial fluid collections. Ventricular system: Within normal limits Cerebral parenchyma: No acute intraparenchymal hemorrhage or mass effect. The valle-white junction is well differentiated. Cerebellum: Unremarkable. Mass effect: No evidence of midline shift. Intracranial vasculature: Atherosclerotic calcifications of the intracranial vessels. Soft tissues: Normal. Calvarium/osseous structures: No depressed skull fracture. Paranasal sinuses and mastoid air cells: Mild scattered paranasal sinus disease. Visualized orbits: Orbital contents are intact. IMPRESSION: No acute intracranial process.
--- NOTE | 2023-01-24 14:16 | XR ---
EXAMINATION TYPE: XR chest 1V portable DATE OF EXAM: 01/24/2023 2:02 PM CLINICAL INDICATION:Male, 62 years old with history of chf; COMPARISON: Chest radiographs from 01/31/2021 TECHNIQUE: XR chest 1V portable Frontal view of the chest. FINDINGS: Lungs/Pleura: There is no evidence of pleural effusion, focal consolidation, or pneumothorax. Pulmonary vascularity: Unremarkable. Heart/mediastinum: Cardiomediastinal silhouette is unremarkable. Musculoskeletal: No acute osseous pathology. IMPRESSION: No acute cardiopulmonary disease/process.
[2023-01-24] MEDS ORDERED: DEXTROSE 50% SYRINGE 50 ML IVP PRN ×2 (20:45)
[2023-01-24 20:55] LABS: Glucose,Whole Blood 139 mg/dL (70-110)
[2023-01-24] MEDS: INSULIN ASPART (NovoLOG) 100 UNIT/ML VIAL SQ SCH (20:55)
[2023-01-24] MEDS: ISOSORBIDE MONONITRATE ER 60 MG TAB.ER.24H PO SCH (21:17)
[2023-01-24] MEDS: hydrALAZINE HCL 50 MG TAB PO SCH (21:17)
[2023-01-24] MEDS: METOPROLOL TARTRATE 50 MG TAB PO SCH (21:17)
[2023-01-24] MEDS: ATORVASTATIN 80 MG TAB PO SCH (21:17)
[2023-01-25] MEDS: SODIUM CHLORIDE 0.9% 1,000 ML IV SCH ×2 (04:51→16:54)
[2023-01-25 06:14] LABS: Glucose,Whole Blood 144 mg/dL (70-110)
[2023-01-25] MEDS: INSULIN ASPART (NovoLOG) 100 UNIT/ML VIAL SQ SCH ×4 (06:14→21:41)
[2023-01-25] MEDS: METOPROLOL TARTRATE 50 MG TAB PO SCH ×2 (08:08→21:42)
[2023-01-25] MEDS: LOSARTAN 50 MG TAB PO SCH (08:08)
[2023-01-25] MEDS: hydrALAZINE HCL 50 MG TAB PO SCH ×2 (08:08→21:42)
[2023-01-25] MEDS: THIAMINE 100 MG TAB PO SCH (08:08)
[2023-01-25] MEDS: DAPAGLIFLOZIN PROPANEDIOL 10 MG TABLET PO SCH (08:08)
[2023-01-25] MEDS: carBAMazepine 200 MG TAB PO SCH ×2 (08:09→21:42)
[2023-01-25 11:10] LABS: Basophils % (A) 0 %; Eosinophils # (A) 0.1 k/uL (0-0.7); Eosinophils % (A) 1 %; Lymphocytes # (A) 0.9 k/uL (1.0-4.8); Lymphocytes % (A) 13 %; MCHC 33.8 g/dL (31.0-37.0); MCV 97.6 fL (80.0-100.0); Mean Platelet Volume 7.1; Monocytes # (A) 0.4 k/uL (0-1.0); Monocytes % (A) 5 %; Neutrophils # (A) 5.7 k/uL (1.3-7.7); Neutrophils % (A) 80 %; Platelet Count 167 k/uL (150-450); RDW 13.7 % (11.5-15.5); WBC 7.1 k/uL (3.8-10.6)
[2023-01-25 11:22] LABS: HGB 13.5 gm/dL (13.0-17.5)
[2023-01-25 11:42] LABS: ALT 25 U/L (4-49); AST 24 U/L (17-59); African American GFR (CKD) >90 (>60 ml/min/1.73 sqM); Albumin 3.3 g/dL (3.5-5.0); Albumin/Globulin Ratio 1.4; Alkaline Phosphatase 58 U/L (38-126); Anion Gap 7 mmol/L; Blood Urea Nitrogen 14 mg/dL (9-20); Calcium 8.8 mg/dL (8.4-10.2); Carbon Dioxide 25 mmol/L (22-30); Chloride 104 mmol/L (98-107); Globulin 2.4 g/dL; Glucose 235 mg/dL (74-99); Non-African American GFR(CKD) >90 (>60 ml/min/1.73 sqM); Potassium 3.4 mmol/L (3.5-5.1); Sodium 136 mmol/L (137-145); Total Bilirubin 0.5 mg/dL (0.2-1.3); Total Protein 5.7 g/dL (6.3-8.2)
[2023-01-25 11:44] LABS: Glucose,Whole Blood 157 mg/dL (70-110)
[2023-01-25] MEDS ORDERED: Magnesium Replacement Protocol 1 EACH MISC MISCELLANE PRN (15:16)
[2023-01-25] MEDS ORDERED: Potassium Replacement Protocol 1 EACH MISC MISCELLANE PRN (15:16)
[2023-01-25 16:55] LABS: Glucose,Whole Blood 105 mg/dL (70-110)
[2023-01-25 20:12] LABS: Glucose,Whole Blood 154 mg/dL (70-110)
--- NOTE | 2023-01-25 20:40 | PN ---
PROGRESS NOTE DATE OF SERVICE: 01/25/2023 SUBJECTIVE: This is a 62-year-old gentleman who was admitted with possibly alcohol-induced seizures, is being closely monitored. No chest pain. No palpitations. The patient is being watched for DTs. OBJECTIVE: VITAL SIGNS: Pulse is 73, blood pressure 140/73, respirations 14. CHEST: Clear to auscultation. CARDIOVASCULAR: S1, S2. ABDOMEN: Soft. NERVOUS SYSTEM: No focal deficits. LABORATORY DATA: Noted. ASSESSMENT: 1. Acute alcohol intoxication and early delirium tremens. 2. Seizure disorder, possibly alcohol-induced, breakthrough seizures. 3. Diabetes mellitus, type 2. 4. History of deep venous thrombosis. 5. Hypertension. 6. Multiple medical issues. RECOMMENDATIONS: Recommend to continue current management and continue symptomatic treatment. Otherwise, monitor blood sugars closely. Closely follow with Neurology, DT precautions. WA protocol. Further recommendations to follow. MMODL / IJN: [id number] /
[2023-01-25] MEDS: ATORVASTATIN 80 MG TAB PO SCH (21:42)
[2023-01-25] MEDS: ISOSORBIDE MONONITRATE ER 60 MG TAB.ER.24H PO SCH (21:43)
[2023-01-26] MEDS: METOPROLOL TARTRATE 50 MG TAB PO SCH ×2 (04:58→07:46)
[2023-01-26 06:19] LABS: Glucose,Whole Blood 140 mg/dL (70-110)
[2023-01-26] MEDS: INSULIN ASPART (NovoLOG) 100 UNIT/ML VIAL SQ SCH (06:25)
[2023-01-26] MEDS: carBAMazepine 200 MG TAB PO SCH (07:46)
[2023-01-26] MEDS: DAPAGLIFLOZIN PROPANEDIOL 10 MG TABLET PO SCH (07:46)
[2023-01-26] MEDS: LOSARTAN 50 MG TAB PO SCH (07:46)
[2023-01-26] MEDS: THIAMINE 100 MG TAB PO SCH (07:46)
[2023-01-26] MEDS: hydrALAZINE HCL 50 MG TAB PO SCH (07:47)
[2023-01-26] MEDS: SODIUM CHLORIDE 0.9% 1,000 ML IV SCH (07:47)
[2023-01-26 08:03] VITALS: BP 146/77; PULSE 71; RESP 16; TEMP 97.9
[2023-01-26 09:30] LABS: Basophils # (A) 0.04 X 10*3/uL (0.00-0.10); Basophils % (A) 0.5 %; Eosinophils # (A) 0.07 X 10*3/uL (0.04-0.35); Eosinophils % (A) 0.9 %; HCT 37.3 % (39.6-50.0); HGB 12.9 d/dL (13.0-17.0); Lymphocytes # (A) 1.49 X 10*3/uL (0.90-5.00); Lymphocytes % (A) 20.1 %; MCH 32.7 pg (27.0-32.0); MCHC 34.6 d/dL (32.0-37.0); MCV 94.4 FL (80.0-97.0); Mean Platelet Volume 9.6 FL (9.5-12.2); Monocytes # (A) 0.56 X 10*3/uL (0.20-1.00); Monocytes % (A) 7.6 %; NRBC Per 100 WBC 0 X 10*3/uL (0.00-0.01); Neutrophils # (A) 5.22 X 10*3/uL (1.80-7.70); Neutrophils % (A) 70.5 %; Platelet Count 145 X 10*3/uL (140-440); RBC 3.95 X 10*6/uL (4.40-5.60); RDW 13.8 % (11.5-14.5); WBC 7.41 X 10*3/uL (4.50-10.00)
[2023-01-26 09:38] LABS: Blood Urea Nitrogen 7.8 mg/dL (9.0-27.0); Calcium 8.5 mg/dL (8.7-10.3); Carbon Dioxide 26.6 mmol/L (21.6-31.8); Chloride 101 mmol/L (96-109); Glucose 121 mg/dL (70-110); Magnesium 1.8 mg/dL (1.5-2.4); Potassium 3.1 mmol/L (3.5-5.5); Sodium 138 mmol/L (135-145)
[2023-01-26] MEDS ORDERED: POTASSIUM CHLORIDE ER 20 MEQ TAB.ER PO STA (10:16)
--- NOTE | 2023-01-27 05:34 | DS ---
DISCHARGE SUMMARY FINAL DIAGNOSES: 1. Acute alcohol intoxication and early delirium tremens. 2. Seizure disorder possibly alcohol induced. 3. Diabetes mellitus, type 2. 4. History of deep venous thrombosis. 5. Multiple medical issues. DISCHARGE DISPOSITION: The patient was discharged in stable condition, guarded prognosis. HISTORY OF PRESENT ILLNESS: This 62-year-old gentleman admitted with alcohol intoxication and delirium tremens. Neurology saw the patient. The patient is keen on going home. Baseline evaluations were negative. I would recommend alcohol rehab and close followup with Primary and Neurology in the outpatient setting. DISCHARGE MEDICATIONS: Continue the home medications and Librium 25 mg t.i.d. Follow up with Dr. Pang in 2- 3 days and follow up with Neurology as recommended. MMODL / IJN: [id number] /
== END 2023-01-26 11:30 | disposition home or self-care (01) ==
LOC: EC 22:58 → 6NMEDSUR 01-24 01:50
PROVIDERS: ADMIT Internal Medicine; ATTEND Internal Medicine
DX: F10.221 Alcohol dependence with intoxication delirium (principal); G40.409 Other generalized epilepsy and epileptic syndromes, not intractable, without status epilepticus; E11.9 Type 2 diabetes mellitus without complications; E78.5 Hyperlipidemia, unspecified; I10 Essential (primary) hypertension; F17.210 Nicotine dependence, cigarettes, uncomplicated; Z86.718 Personal history of other venous thrombosis and embolism; Z79.899 Other long term (current) drug therapy; Z79.82 Long term (current) use of aspirin; Z79.84 Long term (current) use of oral hypoglycemic drugs; Z79.51 Long term (current) use of inhaled steroids; Y90.8 Blood alcohol level of 240 mg/100 ml or more
CPT/HCPCS: 96372; 99285; 51798; 36415; 80156; 80053; 80048 ×2; 80185; 83735; 84075; 84450; 84460; 85025 ×3; 83036; 71045; 70450; G0378 ×3; G0480; J3411; 80320